=== PATIENT | female | born 1940 | race Two or more races ===

== ENCOUNTER 2016-12-25 19:14 | Inpatient (IN) | payer MEDICARE, MEDICAID ==
[~2016-12-25] VITALS: Ht 170.2 cm; Wt 59.0 kg
[2016-12-25 19:20] VITALS: BP 139/81
[2016-12-25] MEDS ORDERED: Cefepime 1gm vial ONE (20:42)
[2016-12-25] MEDS: Cefepime HCl 1 GM in NS 55 ML IV SCH (20:45)
[2016-12-25 20:54] LABS: BASOPHILS % (AUTO) 1.5 % (0.0-2.0); EOSINOPHILS % (AUTO) 0.6 % (0.0-3.0); LYMPHOCYTES % (AUTO) 17.6 % (20.0-45.0); MEAN CORPUSCULAR HGB CONC 33.5 G/DL (32.0-36.0); MEAN CORPUSCULAR VOLUME 98 FL (80-99); MEAN PLATELET VOLUME 7.3 FL (6.5-10.1); MONOCYTES % (AUTO) 3.7 % (1.0-10.0); NEUTROPHILS % (AUTO) 76.7 % (45.0-75.0); PLATELET COUNT 357 K/UL (150-450); RED BLOOD COUNT 4.03 M/UL (4.20-5.40); RED CELL DISTRIBUTION WIDTH 12.8 % (11.6-14.8); WHITE BLOOD COUNT 8.4 K/UL (4.8-10.8)
--- NOTE | 2016-12-25 21:04 | Emergency Room Report ---
History of Present Illness General Chief Complaint: General Complaint Source: Patient, Family Member, EMS, PMD (RISHI GAMBLE D.O.) Present Illness HPI This patient presents from a residential facility. Patient has a history of atrial fibrillation, generalized weakness, hypertension, GERD, and blindness of both eyes. The patient is also positive for failure to thrive and concerns of being more lethargic than usual. The patient has a history of a sacral decubitus ulcer and has chronic pain from this. There are no other complaints. (RISHI GAMBLE D.O.) Allergies: Coded Allergies: ADHESIVE TAPE (Unverified Allergy, Unknown, 12/25/16) PENICILLINS (Unverified Allergy, Unknown, 12/25/16) Uncoded Allergies: PENICILLIN (Allergy, Unknown, 12/25/16) Patient History Past Medical History: see triage record, old chart reviewed, HTN, AFib, GERD, dementia, other - Blindness Social History: Denies: alcohol use, drug use, smoking Reviewed Nursing Documentation: PMH: Agreed, PSxH: Agreed (RISHI GAMBLE D.O. ) Nursing Documentation-PMH Past Medical History: No History, Except For Hx Cardiac Problems: Yes - Afib Hx Hypertension: Yes - anemia Hx Gastrointestinal Problems: Yes - GERD with esophagitis, constipation (RISHI GAMBLE D.O.) Review of Systems All Other Systems: negative except mentioned in HPI (RISHI GAMBLE D.O.) Physical Exam Vital Signs Date Time Temp Pulse Resp B/P Pulse Ox O2 Delivery O2 Flow Rate FiO2 12/25/16 19:05 98.1 93 18 139/81 97 Room Air Sp02 EP Interpretation: reviewed, normal General Appearance: no apparent distress, alert, GCS 15, non-toxic Head: normocephalic, atraumatic Eyes: bilateral eye PERRL, bilateral eye normal inspection ENT: hearing grossly normal, normal pharynx, no angioedema, normal voice Neck: full range of motion, supple/symm/no masses Respiratory: chest non-tender, lungs clear, normal breath sounds, speaking full sentences Cardiovascular #1: no edema, irregularly irregular Gastrointestinal: normal bowel sounds, non tender, soft, non-distended, no guarding, no rebound Rectal: deferred Musculoskeletal: normal range of motion, non-tender Neurologic: alert, responsive, motor strength/tone normal, sensory intact, speech normal Psychiatric: judgement/insight normal, memory normal, mood/affect normal, no suicidal/homicidal ideation Skin: normal color, warm/dry, well hydrated, other - See RN skin exam Stage 3 sacral DU (RISHI GAMBLE D.O.) Medical Decision Making Diagnostic Impression: Primary Impression: Failure to thrive in adult Additional Impression: UTI (urinary tract infection) Qualified Codes: N30.01 - Acute cystitis with hematuria ER Course This patient presents for failure to thrive. She also has altered mental status. The patient refused to give a urine sample and is concerned she may have a urinary tract infection. The patient was given broad-spectrum antibiotics as a precaution for possible urinary tract infection. Patient will be admitted for further evaluation and treatment. Labs Test 12/25/16 20:20 12/25/16 21:30 White Blood Count 8.4 K/UL (4.8-10.8) Red Blood Count 4.03 M/UL (4.20-5.40) Hemoglobin 13.3 G/DL (12.0-16.0) Hematocrit 39.6 % (37.0-47.0) Mean Corpuscular Volume 98 FL (80-99) Mean Corpuscular Hemoglobin 33.0 PG (27.0-31.0) Mean Corpuscular Hemoglobin Concent 33.5 G/DL (32.0-36.0) Red Cell Distribution Width 12.8 % (11.6-14.8) Platelet Count 357 K/UL (150-450) Mean Platelet Volume 7.3 FL (6.5-10.1) Neutrophils (%) (Auto) 76.7 % (45.0-75.0) Lymphocytes (%) (Auto) 17.6 % (20.0-45.0) Monocytes (%) (Auto) 3.7 % (1.0-10.0) Eosinophils (%) (Auto) 0.6 % (0.0-3.0) Basophils (%) (Auto) 1.5 % (0.0-2.0) Sodium Level 140 mEQ/L (135-145) Potassium Level 4.0 mEQ/L (3.4-4.9) Chloride Level 101 mEQ/L (98-107) Carbon Dioxide Level 27 mEQ/L (20-30) Anion Gap 12 (5-15) Blood Urea Nitrogen 16 mg/dL (7-23) Creatinine 0.8 mg/dL (0.5-0.9) Estimat Glomerular Filtration Rate mL/min (>60) Glucose Level 144 mg/dL (74-106) Lactic Acid Level 1.80 mmol/L (0.66-2.22) Calcium Level 10.4 mg/dL (8.6-10.2) Total Bilirubin 0.3 mg/dL (0.0-1.2) Aspartate Amino Transf (AST/SGOT) 16 U/L (5-40) Alanine Aminotransferase (ALT/SGPT) 11 U/L (3-33) Alkaline Phosphatase 60 U/L (35-104) Total Creatine Kinase 31 U/L (26-140) Creatine Kinase MB 2.0 ng/mL (< 3.8) Creatine Kinase MB Relative Index 6.4 Troponin I < 0.30 ng/mL (<=0.30) Total Protein 7.7 g/dL (6.6-8.7) Albumin 4.2 g/dL (3.5-5.2) Globulin 3.5 g/dL Albumin/Globulin Ratio 1.2 (1.0-2.7) Urine Color Yellow Urine Appearance Cloudy Urine pH 5 (4.5-8.0) Urine Specific [place] 1.025 (1.005-1.035) Urine Protein 2+ (NEGATIVE) Urine Glucose (UA) Negative (NEGATIVE) Urine Ketones Negative (NEGATIVE) Urine Occult Blood 5+ (NEGATIVE) Urine Nitrite Negative (NEGATIVE) Urine Bilirubin Negative (NEGATIVE) Urine Urobilinogen 1 MG/DL (0.0-1.0) Urine Leukocyte Esterase 3+ (NEGATIVE) Urine RBC Tntc /HPF (0 - 2) Urine WBC 5-10 /HPF (0 - 2) Urine Squamous Epithelial Cells Moderate /LPF (NONE/OCC) Urine Bacteria Many /HPF (NONE) (RISHI GAMBLE D.O.) ER Course Endorsed to me by Dr Bob at 9pm to followup labs, UA UA grossly infected Abx given Reviewed last of labs, paperwork Endorsed findings to Dr Oliver at 1124pm (MARKEL CRANE M.D.) EKG Diagnostic Results Rate: normal Rhythm: other ST Segments: no acute changes Other Impression A.fib (RISHI GAMBLE D.O.) Rhythm Strip Diag. Results EP Interpretation: yes Rate: 90's Rhythm: no PVC's, no ectopy Other Impression Cary.fib (RISHI GAMBLE D.O.) Chest X-Ray Diagnostic Results Chest X-Ray Diagnostic Results : Chest X-Ray Ordered: Yes # of Views/Limited/Complete: 1 View Indication: Other - AMS EP Interpretation: Yes Interpretation: no consolidation, no effusion, no pneumothorax, no acute cardiopulmonary disease, other - Hyperinflated. Impression: No acute disease Interpreting ER Provider: Rupal (RISHI GAMBLE D.O.) Last Vital Signs Date Time Temp Pulse Resp B/P Pulse Ox O2 Delivery O2 Flow Rate FiO2 12/25/16 19:05 98.1 93 18 139/81 97 Room Air (RISHI GAMBLE D.O.) Status: improved (MARKEL CRANE M.D.) Disposition: ADMITTED INPATIENT Condition: Serious Referrals: YAZMIN OLIVER (PCP) RISHI GAMBLE D.O. Dec 25, 2016 21:04 MARKEL CRANE M.D. Dec 25, 2016 23:24
[2016-12-25 21:12] LABS: ALANINE AMINOTRANSFERASE 11 U/L (3-33); ALBUMIN/GLOBULIN RATIO 1.2 (1.0-2.7); ANION GAP 12 (5-15); ASPARTATE AMINO TRANSFERASE 16 U/L (5-40); CALCIUM 10.4 mg/dL (8.6-10.2); CARBON DIOXIDE 27 mEQ/L (20-30); CHLORIDE 101 mEQ/L (98-107); CREATININE 0.8 mg/dL (0.5-0.9); HEMOLYSIS 5; SODIUM 140 mEQ/L (135-145); TOTAL PROTEIN 7.7 g/dL (6.6-8.7); TROPONIN I < 0.30 ng/mL (<=0.30)
[2016-12-25 21:15] VITALS: BP 142/82
[2016-12-25 22:12] LABS: APPEARANCE,URINE CLOUDY; KETONES,URINE NEGATIVE (NEGATIVE); LEUKOCYTE ESTERASE ,URINE 3+ (NEGATIVE); NITRITE,URINE NEGATIVE (NEGATIVE); PH,URINE 5 (4.5-8.0); PROTEIN,URINE 2+ (NEGATIVE); UROBILINOGEN,URINE 1 MG/DL (0.0-1.0)
[2016-12-25] MEDS: Acetaminophen 500mg (ES) tab ORAL PRN (22:12)
[2016-12-25 22:33] LABS: RBC,URINE TNTC /HPF (0 - 2)
[2016-12-25 22:36] LABS: SQUAMOUS EPITHELIAL CELL,UR MODERATE /LPF (NONE/OCC)
[2016-12-25 22:37] LABS: BACTERIA,URINE MANY /HPF
[2016-12-25] MEDS ORDERED: AMLODIPINE BESYL5 MG ORAL (22:41)
[2016-12-25] MEDS ORDERED: PRO-STAT LIQUID30 ML ORAL (23:13)
[2016-12-25] MEDS ORDERED: METOPROLOL TART50 M1 ORAL (23:13)
[2016-12-25] MEDS ORDERED: MULTIVITAMINS1 EAC2 ORAL (23:13)
[2016-12-25] MEDS ORDERED: ISOSORBIDE MONO30 M1 PO (23:13)
[2016-12-25] MEDS ORDERED: DOCUSATE SODIU100 MG ORAL (23:13)
[2016-12-25] MEDS ORDERED: PANTOPRAZOLE SO40 MG ORAL (23:13)
[2016-12-25] MEDS ORDERED: ASPIRIN EC81 MG ORAL (23:13)
[2016-12-25] MEDS ORDERED: ASCORBIC ACID500 MG ORAL (23:13)
[2016-12-25] MEDS ORDERED: XARELTO10 MG ORAL (23:13)
[2016-12-25] MEDS ORDERED: NITROGLYCERIN0.4 MG SL (23:17)
[2016-12-25] MEDS ORDERED: MILK OF MA400 MG/51 ORAL (23:17)
[2016-12-25] MEDS ORDERED: MELATONIN1 M2 PO (23:17)
[2016-12-25] MEDS ORDERED: BISACODYL5 MG RECTAL (23:17)
[2016-12-25] MEDS ORDERED: TRAMADOL HCL150 MG ORAL (23:17)
[2016-12-25] MEDS ORDERED: ACETAMINOPHEN325 M1 ORAL (23:17)
[2016-12-25 23:30] VITALS: BP 141/79
[2016-12-26] MEDS: D5 1/2NS 1,000 ML IV SCH ×2 (00:11→21:08)
[2016-12-26 04:00] VITALS: BP 137/79
[2016-12-26] MEDS ORDERED: Cefepime 1gm vial ONE (06:32)
[2016-12-26] MEDS: Cefepime HCl 1 GM in NS 55 ML IV SCH (06:37)
[2016-12-26 08:00] VITALS: BP 133/80
[2016-12-26] MEDS: Acetaminophen 500mg (ES) tab ORAL PRN (08:30)
[2016-12-26] MEDS ORDERED: Milk of Magnesia 30ml Ud ORAL PRN (09:00)
[2016-12-26] MEDS ORDERED: Metoprolol Tartrate 50mg tab ORAL SCH (09:00)
[2016-12-26] MEDS ORDERED: Bisacodyl EC 5mg tab ORAL PRN (09:00)
[2016-12-26] MEDS ORDERED: Acetaminophen 500mg (ES) tab ORAL PRN (09:08)
[2016-12-26] MEDS: Xarelto 15mg tab ORAL SCH (09:33)
[2016-12-26] MEDS: LORazepam 0.5mg tab ORAL PRN (09:33)
[2016-12-26] MEDS: Aspirin EC 81mg tab ORAL SCH (09:33)
--- NOTE | 2016-12-26 09:36 | Diagnostic Imaging Report ---
Indication: Shortness of breath Technique: One view of the chest Comparison: none Findings: Lungs are somewhat hyperinflated. Lungs and pleural spaces are clear. Heart size is normal. Aorta is tortuous. There are degenerative changes of the thoracic spine Impression: Hyperinflation, suggesting mild COPD. No acute process
--- NOTE | 2016-12-26 09:46 | History and Physical Report ---
DATE OF ADMISSION: 12/25/2016 CHIEF COMPLAINT: Altered mental status, sepsis, urinary tract infection, and failure to thrive. HISTORY OF PRESENT ILLNESS: The patient is a pleasant 76-year-old female, who was transferred from intermediate facility with complaints of confusion, failure to thrive, and weight loss. According to the patient's son, the patient has been increasingly confused and weak. She has lost significant amount of weight in the last several weeks. Workup at the intermediate facility has been unremarkable. In light of the patient's continued deterioration, she was sent to the emergency room. On evaluation there, she was diagnosed with urinary tract infection. She remains diffusely weak. Family were present at the bedside. She is now admitted for further evaluation and care. PAST MEDICAL HISTORY: As above with history of atrial fibrillation, hypertension, hypertensive heart disease, prior history of blindness, and history of stroke. PAST SURGICAL HISTORY: None. CURRENT MEDICATIONS: Reconciled and reviewed. ALLERGIES: Include penicillin. FAMILY HISTORY: Noncontributory. SOCIAL HISTORY: There is no known history of tobacco, ethanol, or drugs. REVIEW OF SYSTEMS: Unobtainable as the patient is confused. PHYSICAL EXAMINATION: GENERAL: The patient is well developed and follow well-nourished, in no apparent distress. VITAL SIGNS: Temperature 98.2 degrees, pulse 99 degrees, respirations 18, and blood pressure 137/79. HEART: Regular rate and rhythm. LUNGS: Clear. ABDOMEN: Soft, nontender, and nondistended. EXTREMITIES: Without clubbing or cyanosis. LABORATORY DATA: White count of 8 and hemoglobin 13. Sodium 140, potassium 4, and calcium 10.4. UA showed 5 to 10 WBCs, too numerous to count RBCs, and 3+ leukocyte esterase positive. ASSESSMENT: This is a pleasant female with complaints of encephalopathy, likely toxic metabolic due to infection, hypercalcemia, hypertension, atrial fibrillation, blindness, and possible early sepsis. PLAN: IV antibiotic therapy. Follow up cultures. Gentle hydration. Continue outpatient cardiac regimen and encourage p.o. Rafal Oliver M.D. DR: TAM JOB#: [id number] CC:
[2016-12-26] MEDS ORDERED: Tubing IV Secondary IV ONE (09:48)
[2016-12-26] MEDS ORDERED: D5 1/2NS 1000ml IV ONE (09:48)
[2016-12-26 12:00] VITALS: BP_SYST 114; BP_SYST 123; BP_DIAS 50; BP_DIAS 64
[2016-12-26] MEDS: Docusate 100mg cap ORAL SCH ×2 (12:09→18:00)
[2016-12-26] MEDS: Imdur 30mg tab ORAL SCH (12:09)
[2016-12-26] MEDS: Ascorbic Acid 500mg tab ORAL SCH (12:09)
[2016-12-26] MEDS: traMADol 50mg tab ORAL PRN (15:42)
[2016-12-26 16:06] VITALS: BP 129/71
[2016-12-26 20:00] VITALS: BP 138/72
[2016-12-26] MEDS: Levofloxacin 250mg/D5W 50ml IVPB SCH (23:58)
[2016-12-27] VITALS: BP 147/93
[2016-12-27 04:00] VITALS: BP 154/85
[2016-12-27] MEDS: traMADol 50mg tab ORAL PRN (05:07)
[2016-12-27 08:00] VITALS: BP 157/89
[2016-12-27] MEDS: Aspirin EC 81mg tab ORAL SCH (09:13)
[2016-12-27] MEDS: Xarelto 15mg tab ORAL SCH (09:14)
[2016-12-27] MEDS: Docusate 100mg cap ORAL SCH ×2 (09:14→17:24)
[2016-12-27] MEDS: Ascorbic Acid 500mg tab ORAL SCH (09:14)
[2016-12-27] MEDS: Imdur 30mg tab ORAL SCH (09:15)
[2016-12-27 12:00] VITALS: BP 108/64
--- NOTE | 2016-12-27 12:42 | General Progress Note ---
Assessment/Plan Problem List: (1) Toxic metabolic encephalopathy ICD Codes: G92 - Toxic encephalopathy SNOMED: 123957433 (2) UTI (urinary tract infection) ICD Codes: N39.0 - Urinary tract infection, site not specified SNOMED: 21076933 Qualifiers: Qualified Codes: N30.01 - Acute cystitis with hematuria (3) Failure to thrive in adult ICD Codes: R62.7 - Adult failure to thrive SNOMED: 863420904 Status: stable, progressing Assessment/Plan ivf iv abx follow cultures encourage pos monitor labs d/w family Subjective ROS Limited/Unobtainable: No Constitutional: Reports: malaise, weakness HEENT: Reports: no symptoms Cardiovascular: Reports: no symptoms Respiratory: Reports: cough Gastrointestinal/Abdominal: Reports: poor appetite, poor fluid intake Genitourinary: Reports: no symptoms Neurologic/Psychiatric: Reports: pre-existing deficit Endocrine: Reports: no symptoms Hematologic/Lymphatic: Reports: no symptoms Allergies: Coded Allergies: ADHESIVE TAPE (Unverified Allergy, Unknown, 12/25/16) PENICILLINS (Unverified Allergy, Unknown, 12/25/16) Uncoded Allergies: PENICILLIN (Allergy, Unknown, 12/25/16) All Systems: reviewed and negative except above Subjective no new complaints. no chest pain no sob. Ucx with GPC. no fevers Objective Last 24 Hour Vital Signs Date Time Temp Pulse Resp B/P Pulse Ox O2 Delivery O2 Flow Rate FiO2 12/27/16 09:15 157/89 12/27/16 09:15 65 157/89 12/27/16 09:14 65 157/89 12/27/16 08:00 97.2 65 20 157/89 100 Room Air 12/27/16 06:06 97.3 12/27/16 04:00 97.3 64 18 154/85 100 Room Air 12/27/16 00:00 97.3 76 20 147/93 99 Room Air 12/26/16 20:00 97.7 67 20 138/72 99 12/26/16 16:41 98.8 12/26/16 16:06 98.8 102 20 129/71 98 Room Air Intake and Output 12/26/16 12/27/16 19:00 07:00 Intake Total 1360 ml 670 ml Balance 1360 ml 670 ml Intake Oral 600 ml 120 ml IV Total 760 ml 550 ml # Voids 4 3 # Bowel Movements 1 Height (Feet): 5 Height (Inches): 7.00 Weight (Pounds): 130 General Appearance: WD/WN, alert, cachetic, thin Neck: supple Cardiovascular: normal rate, regular rhythm Respiratory/Chest: chest wall non-tender, lungs clear, normal breath sounds, no respiratory distress Abdomen: normal bowel sounds, non tender, soft, no organomegaly Edema: no edema noted Arm (L), no edema noted Arm (R), no edema noted Leg (L), no edema noted Leg (R), no edema noted Pedal (L), no edema noted Pedal (R), no edema noted Generalized Neurologic: alert, oriented x 3, responsive YAZMIN DE LOS SANTOS Dec 27, 2016 12:42
[2016-12-27 16:00] VITALS: BP 101/63
[2016-12-27] MEDS: D5 1/2NS 1,000 ML IV SCH (17:24)
[2016-12-27 20:00] VITALS: BP 101/61
[2016-12-28] VITALS (7 sets, daily range): BP systolic 97–135; BP diastolic 61–80
[2016-12-28] MEDS: Levofloxacin 250mg/D5W 50ml IVPB SCH (00:18)
[2016-12-28] MEDS: traMADol 50mg tab ORAL PRN ×3 (06:46→18:14)
[2016-12-28] MEDS: Aspirin EC 81mg tab ORAL SCH (08:34)
[2016-12-28] MEDS: Docusate 100mg cap ORAL SCH ×2 (08:34→17:07)
[2016-12-28] MEDS: Ascorbic Acid 500mg tab ORAL SCH (08:35)
[2016-12-28] MEDS: Xarelto 15mg tab ORAL SCH (08:35)
[2016-12-28] MEDS: Imdur 30mg tab ORAL SCH (08:35)
--- NOTE | 2016-12-28 11:24 | General Progress Note ---
Assessment/Plan Problem List: (1) Toxic metabolic encephalopathy ICD Codes: G92 - Toxic encephalopathy SNOMED: 090692300 (2) UTI (urinary tract infection) ICD Codes: N39.0 - Urinary tract infection, site not specified SNOMED: 62358011 Qualifiers: Qualified Codes: N30.01 - Acute cystitis with hematuria (3) Failure to thrive in adult ICD Codes: R62.7 - Adult failure to thrive SNOMED: 202573349 Status: stable Assessment/Plan ivf check ekg and trop iv abx follow cultures encourage pos monitor labs d/w family refer to [facility] per family request Subjective ROS Limited/Unobtainable: No Constitutional: Reports: malaise, weakness HEENT: Reports: no symptoms Cardiovascular: Reports: chest pain Respiratory: Reports: no symptoms Gastrointestinal/Abdominal: Reports: no symptoms Genitourinary: Reports: no symptoms Neurologic/Psychiatric: Reports: pre-existing deficit Endocrine: Reports: no symptoms Hematologic/Lymphatic: Reports: no symptoms Allergies: Coded Allergies: ADHESIVE TAPE (Unverified Allergy, Unknown, 12/25/16) PENICILLINS (Unverified Allergy, Unknown, 12/25/16) Uncoded Allergies: PENICILLIN (Allergy, Unknown, 12/25/16) All Systems: reviewed and negative except above Subjective c/o chest pain. sharp. no sob. no n/v does not radiate. Objective Last 24 Hour Vital Signs Date Time Temp Pulse Resp B/P Pulse Ox O2 Delivery O2 Flow Rate FiO2 12/28/16 08:35 100/71 12/28/16 08:15 98.1 89 11 100/71 97 Room Air 12/28/16 07:45 98.1 12/28/16 04:00 98.1 77 20 135/80 100 Room Air 12/28/16 00:15 66 125/68 12/28/16 00:00 97.2 64 18 97/61 99 Room Air 12/27/16 20:00 98.1 61 18 101/61 98 Room Air 12/27/16 16:00 98.2 64 20 101/63 98 Room Air 12/27/16 12:00 97.7 72 20 108/64 99 Room Air Intake and Output 12/27/16 12/28/16 19:00 07:00 Intake Total 880 ml 839 ml Balance 880 ml 839 ml Intake Oral 680 ml 300 ml IV Total 200 ml 539 ml # Voids 4 4 # Bowel Movements 1 1 Height (Feet): 5 Height (Inches): 7.00 Weight (Pounds): 130 General Appearance: WD/WN, alert Neck: supple Cardiovascular: regular rhythm Respiratory/Chest: chest wall non-tender, lungs clear, normal breath sounds Abdomen: normal bowel sounds, non tender, soft, no organomegaly Edema: no edema noted Arm (L), no edema noted Arm (R), no edema noted Leg (L), no edema noted Leg (R), no edema noted Pedal (L), no edema noted Pedal (R), no edema noted Generalized YAZMIN DE LOS SANTOS Dec 28, 2016 11:23
--- NOTE | 2016-12-28 11:35 | Wound Care Consultation ---
Wound Assessment Wound Assessment : Wound Number: #1 Wound Present on Admission: Yes New Wound: No Status Change of Wound: No Wound Location Body Site Modif: mid Wound Location Body Site: sacral - extending to left aspect of sacral Wound Type: pressure ulcer Shekhar Test: Does not Shekhar Pressure Ulcer Stage: III - scattered stage III. Wound Thickness: Full Thickness Wound Length: 5.0 - scattered Wound Width: 4.0 - scattered Wound Depth: 0.3 Percent of Wound [employer]/Red: 90 Percent of Wound Bed Yellow/Wh: 10 Other Colors Identified: full thickness scar tissue surrounding sacral 7.0cmx10.0cm scattered Wound Drainage Description: Serosanguineous Wound Drainage Amount: Moderate Wound Drainage Odor: None/Absent Tissue Surrounding Wound: Macerated - erythremic Wound General Appearance: Reddened, Draining Wound Comment #1 Mid sacral extending to left aspect of sacral scattered pressure ulcer stage III. Recommendation. -Local wound care as ordered. -Turn and reposition. -Keep clean and dry. -Optimize nutrition. -Offload heels. -Apply heel protectors. -Apply low air loss SPR overlay. -Assess and follow up with MD for any changes of condition to skin. CAROL HA Dec 28, 2016 11:35
[2016-12-28] MEDS: D5 1/2NS 1,000 ML IV SCH ×2 (12:39→17:08)
--- NOTE | 2016-12-28 18:18 | Cardiology Report ---
APPROVED REPORT EKG Measurement Heart [id number] Atrial fibrillation Incomplete right bundle branch block Possible Anterior infarct, age undetermined Abnormal ECG
[2016-12-29] VITALS: BP 132/74
[2016-12-29] MEDS: traMADol 50mg tab ORAL PRN ×3 (00:27→17:43)
[2016-12-29] MEDS: Levofloxacin 250mg/D5W 50ml IVPB SCH (01:36)
[2016-12-29 03:53] VITALS: BP 146/86
--- NOTE | 2016-12-29 08:13 | General Progress Note ---
Assessment/Plan Problem List: (1) Toxic metabolic encephalopathy ICD Codes: G92 - Toxic encephalopathy SNOMED: 229222298 (2) UTI (urinary tract infection) ICD Codes: N39.0 - Urinary tract infection, site not specified SNOMED: 66434611 Qualifiers: Qualified Codes: N30.01 - Acute cystitis with hematuria (3) Failure to thrive in adult ICD Codes: R62.7 - Adult failure to thrive SNOMED: 002169120 Status: stable Assessment/Plan ivf ct brain vascular studies iv abx follow cultures encourage pos monitor labs d/w family refer to [facility] per family request dc planning if above negative Subjective ROS Limited/Unobtainable: No Constitutional: Reports: malaise, weakness HEENT: Reports: no symptoms Cardiovascular: Reports: no symptoms Respiratory: Reports: no symptoms Gastrointestinal/Abdominal: Reports: no symptoms Genitourinary: Reports: no symptoms Neurologic/Psychiatric: Reports: pre-existing deficit Endocrine: Reports: no symptoms Hematologic/Lymphatic: Reports: no symptoms Allergies: Coded Allergies: ADHESIVE TAPE (Unverified Allergy, Unknown, 12/25/16) PENICILLINS (Unverified Allergy, Unknown, 12/25/16) Uncoded Allergies: PENICILLIN (Allergy, Unknown, 12/25/16) All Systems: reviewed and negative except above Subjective no chest pain. no sob. D/w son requesting vascular and neuro eval. no chest pain last night. no fever or chills. no headaches. Objective Last 24 Hour Vital Signs Date Time Temp Pulse Resp B/P Pulse Ox O2 Delivery O2 Flow Rate FiO2 12/29/16 03:53 96.8 65 18 146/86 99 Room Air 12/29/16 01:26 97.2 12/29/16 00:00 97.2 74 18 132/74 96 Room Air 12/28/16 20:00 98.4 87 18 132/74 96 Room Air 12/28/16 16:00 97.7 68 18 114/64 97 Room Air 12/28/16 12:09 97.7 91 16 128/70 98 Room Air 12/28/16 08:35 100/71 12/28/16 08:15 98.1 89 11 100/71 97 Room Air Intake and Output 12/28/16 12/29/16 19:00 07:00 Intake Total 500 ml 600 ml Balance 500 ml 600 ml IV Total 500 ml 600 ml # Voids 3 2 # Bowel Movements 1 Height (Feet): 5 Height (Inches): 7.00 Weight (Pounds): 130 Objective General Appearance: WD/WN, alert Neck: supple Cardiovascular: regular rhythm Respiratory/Chest: chest wall non-tender, lungs clear, normal breath sounds Abdomen: normal bowel sounds, non tender, soft, no organomegaly Edema: no edema noted Arm (L), no edema noted Arm (R), no edema noted Leg (L), no edema noted Leg (R), no edema noted Pedal (L), no edema noted Pedal (R), no edema noted Generalized YAZMIN DE LOS SANTOS Dec 29, 2016 08:13
[2016-12-29 08:44] VITALS: BP 149/96
[2016-12-29] MEDS: Aspirin EC 81mg tab ORAL SCH (08:47)
[2016-12-29] MEDS: Xarelto 15mg tab ORAL SCH (08:47)
[2016-12-29] MEDS: Docusate 100mg cap ORAL SCH ×2 (08:47→17:44)
[2016-12-29] MEDS: Imdur 30mg tab ORAL SCH (08:48)
[2016-12-29] MEDS: Ascorbic Acid 500mg tab ORAL SCH (08:48)
--- NOTE | 2016-12-29 10:43 | Diagnostic Imaging Report ---
Indications: Altered level of consciousness Technique: Continuous helical CT imaging of the brain was performed with automatic exposure control on a Siemens sensation [address] scanner. Axial and coronal images were reconstructed at 5 mm slice thickness and interval. CTDI volume(s): 70 mGy Total DLP: 1425 mGy-cm Findings: Comparison: CT head 08/28/13; MRA head 10/04/13 Chronic microvascular ischemic changes throughout the bilateral cerebral periventricular and deep white matter with focal extension into the left parietal subcortical white matter, 11 mm rim calcified mass in the region of the left cavernous sinus, diffuse atrophy unchanged.. No evidence of mass or hemorrhage, other attenuation abnormality, mass effect, midline shift, hydrocephalus or increased intracranial pressure. Bone window images are unremarkable. Visualized paranasal sinuses and mastoid air cells are clear. 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 Stable chronic age-related changes as described The CT scanner at [facility] is accredited by the [employer] [employer] and the scans are performed using protocols designed to limit radiation exposure to as low as reasonably achievable to attain images of sufficient resolution adequate for diagnostic evaluation.
[2016-12-29 12:00] VITALS: BP 121/71
[2016-12-29 15:58] VITALS: BP 112/62
[2016-12-29] MEDS: D5 1/2NS 1,000 ML IV SCH (18:00)
[2016-12-29 19:59] VITALS: BP 123/68
[2016-12-29] MEDS: Nitroglycerin Subl 0.4mg tab (Bottle Of 25) SL PRN (21:05)
[2016-12-30] VITALS: BP 143/83
[2016-12-30] MEDS: Levofloxacin 250mg/D5W 50ml IVPB SCH (00:51)
[2016-12-30 04:00] VITALS: BP 158/85
[2016-12-30 07:08] VITALS: BP 143/67
[2016-12-30] MEDS: Docusate 100mg cap ORAL SCH ×2 (08:29→18:25)
[2016-12-30] MEDS: Aspirin EC 81mg tab ORAL SCH (08:29)
[2016-12-30] MEDS: Xarelto 15mg tab ORAL SCH (08:29)
[2016-12-30] MEDS: Ascorbic Acid 500mg tab ORAL SCH (08:30)
[2016-12-30] MEDS: Imdur 30mg tab ORAL SCH (08:30)
[2016-12-30] MEDS ORDERED: D5 1/2NS 1000ml IV ONE ×2 (10:02→11:16)
[2016-12-30 12:07] VITALS: BP 111/64
--- NOTE | 2016-12-30 13:54 | General Progress Note ---
Assessment/Plan Problem List: (1) Toxic metabolic encephalopathy ICD Codes: G92 - Toxic encephalopathy SNOMED: 648918083 (2) UTI (urinary tract infection) ICD Codes: N39.0 - Urinary tract infection, site not specified SNOMED: 13970549 Qualifiers: Qualified Codes: N30.01 - Acute cystitis with hematuria (3) Failure to thrive in adult ICD Codes: R62.7 - Adult failure to thrive SNOMED: 939215763 Status: stable, progressing Assessment/Plan ivf MRA brain- reassess carotid aneurysm iv abx follow cultures encourage pos monitor labs d/w family refer to [facility] per family request dc planning if above negative Subjective ROS Limited/Unobtainable: No Constitutional: Reports: malaise, weakness HEENT: Reports: no symptoms Cardiovascular: Reports: no symptoms Respiratory: Reports: no symptoms Gastrointestinal/Abdominal: Reports: no symptoms Genitourinary: Reports: no symptoms Neurologic/Psychiatric: Reports: pre-existing deficit Endocrine: Reports: no symptoms Hematologic/Lymphatic: Reports: no symptoms Allergies: Coded Allergies: ADHESIVE TAPE (Unverified Allergy, Unknown, 12/25/16) PENICILLINS (Unverified Allergy, Unknown, 12/25/16) Uncoded Allergies: PENICILLIN (Allergy, Unknown, 12/25/16) All Systems: reviewed and negative except above Subjective no events. w/o complaints. no chest pain no sob. No headaches. CT noted- + carotid aneurysm Objective Last 24 Hour Vital Signs Date Time Temp Pulse Resp B/P Pulse Ox O2 Delivery O2 Flow Rate FiO2 12/30/16 12:07 98.2 71 18 111/64 98 Room Air 12/30/16 08:30 143/67 12/30/16 08:30 76 143/67 12/30/16 08:29 76 143/67 12/30/16 07:08 98.2 76 18 143/67 100 Room Air 12/30/16 04:00 97.3 79 18 158/85 99 Room Air 12/30/16 00:00 97.7 94 20 143/83 98 Room Air 12/29/16 21:05 123/68 12/29/16 19:59 97.0 69 18 123/68 96 Room Air 12/29/16 18:42 97.7 12/29/16 15:58 97.7 64 18 112/62 96 Room Air Intake and Output 12/29/16 12/30/16 19:00 07:00 Intake Total 760 ml 670 ml Balance 760 ml 670 ml Intake Oral 360 ml 120 ml IV Total 400 ml 550 ml # Voids 4 2 Height (Feet): 5 Height (Inches): 7.00 Weight (Pounds): 130 Objective General Appearance: WD/WN, alert Neck: supple Cardiovascular: regular rhythm Respiratory/Chest: chest wall non-tender, lungs clear, normal breath sounds Abdomen: normal bowel sounds, non tender, soft, no organomegaly Edema: no edema noted Arm (L), no edema noted Arm (R), no edema noted Leg (L), no edema noted Leg (R), no edema noted Pedal (L), no edema noted Pedal (R), no edema noted Generalized YAZMIN DE LOS SANTOS Dec 30, 2016 13:54
--- NOTE | 2016-12-30 16:27 | Cardiology Report ---
APPROVED REPORT EKG Measurement Heart [id number] Atrial fibrillation Cannot rule out Anterior infarct, age undetermined Abnormal ECG
[2016-12-30 16:30] VITALS: BP 139/74
[2016-12-30] MEDS: traMADol 50mg tab ORAL PRN ×2 (16:32→22:54)
[2016-12-30] MEDS: D5 1/2NS 1,000 ML IV SCH (16:37)
--- NOTE | 2016-12-30 16:50 | Diagnostic Imaging Report ---
Indications: Headache, history of brain aneurysm Technique: 3D [id number]-up-pbxroc images obtained through the [place] [facility] [place]. MIP reconstructions were generated in multiple rotational projections Comparison: 10/04/2013 Findings: Again demonstrated is a complex shaped aneurysm of the distal internal carotid artery. There is funnel-shaped ectasia of the distal intrapetrous carotid artery. There is a saccular component of the aneurysm which expands the distal carotid canal and then extends into the cavernous sinus. At its widest point, the saccular component measures 16 mm in diameter, appearing unchanged from the previous dimension. Fusiform dilatation of the carotid artery extends distal to this well into the cavernous sinus. This distal 2 simple component measures 7-8 mm in diameter, appears unchanged from the previous exam. The length from the base of the saccular component to the tip of the aneurysm is 32 mm, which is not significantly changed from the previous exam. The cavernous carotid artery then continues off of the anterior aspect of the distal end of the aneurysm. Note that because of the aneurysm, the position of the proximal carotid siphon is more cephalad than the normal contralateral side. Due to the flow and geometric abnormalities created by the aneurysm, portions of the cavernous carotid artery are not well visualized. The distal internal carotid artery is patent, nonstenotic. The bilateral A1 segments are patent, that on the left diffusely smaller than that on the right. The anterior communicating artery appears to be patent. The bilateral M1 segments and proximal middle through artery branches are patent. The right distal internal carotid artery is patent, nonstenotic, demonstrates no evidence of aneurysm. The left vertebral artery is dominant, and the right vertebral artery is very small. Patient nonstenotic basilar artery, proximal PICAs, proximal superior cerebellar arteries, P1 segments and proximal posterior cerebral arteries. Neither posterior communicating artery is demonstrated No other evidence of intracranial aneurysm. No definite evidence of vascular malformation. 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 This appears unchanged from prior exam of 10/04/2013. No other intracranial aneurysm demonstrated No definite evidence of significant cerebrovascular insufficiency. Note, however, poor visualization of the portions of the cavernous carotid artery. No other intracranial aneurysm demonstrated
[2016-12-30] MEDS: Nitroglycerin Subl 0.4mg tab (Bottle Of 25) SL PRN (17:14)
--- NOTE | 2016-12-30 19:23 | Diagnostic Imaging Report ---
APPROVED REPORT CPT Code: 81170 Vascular Symptoms Unsteady Gait Comments: Weakness. Hx A-fib. Doppler Spectral Velocity Analysis RightLeft CAROTID (BILATERAL) - Imaging reveals no significant plaque within the right and left extracranial carotid arteries. The Doppler spectral flow analysis is within normal limits throughout the extracranial carotid arteries bilaterally. VERTEBRAL- The vertebral arteries are within normal limits.
--- NOTE | 2016-12-30 19:23 | Diagnostic Imaging Report ---
APPROVED REPORT CPT Code: 94516 Symptoms Rest Pain : Comments: Weakness, hx a-fib. Risk Factors Hypertension: Cardiac Disease RIGHT LEG: Common femoral artery waveform analysis is within normal limits at rest. The proximal common femoral artery is mildly calcified. Color duplex sonography reveals patency of the common femoral, superficial femoral, popliteal and tibial arteries. There is no evidence of stenosis or occlusion within these segments. Doppler tibial artery waveform analysis is within normal limits. LEFT LEG: Common femoral artery waveform analysis is within normal limits at rest. Color duplex sonography reveals patency of the superficial femoral, popliteal and tibial arteries. There is no evidence of stenosis or occlusion within these segments. Doppler tibial artery waveform analysis is within normal limits.
[2016-12-30 20:00] VITALS: BP 156/107
[2016-12-31] VITALS (7 sets, daily range): BP systolic 92–132; BP diastolic 43–86
[2016-12-31] MEDS: Levofloxacin 250mg/D5W 50ml IVPB SCH (01:45)
[2016-12-31] MEDS: Docusate 100mg cap ORAL SCH ×2 (09:52→18:12)
[2016-12-31] MEDS: Ascorbic Acid 500mg tab ORAL SCH (09:52)
[2016-12-31] MEDS: LORazepam 0.5mg tab ORAL PRN (09:53)
[2016-12-31] MEDS: Imdur 30mg tab ORAL SCH (09:58)
[2016-12-31] MEDS: Xarelto 15mg tab ORAL SCH (09:58)
[2016-12-31] MEDS: Aspirin EC 81mg tab ORAL SCH (10:13)
[2016-12-31] MEDS: D5 1/2NS 1,000 ML IV SCH ×2 (10:13→13:31)
--- NOTE | 2016-12-31 10:19 | General Progress Note ---
Assessment/Plan Problem List: (1) Toxic metabolic encephalopathy ICD Codes: G92 - Toxic encephalopathy SNOMED: 100706396 (2) UTI (urinary tract infection) ICD Codes: N39.0 - Urinary tract infection, site not specified SNOMED: 41681449 Qualifiers: Qualified Codes: N30.01 - Acute cystitis with hematuria (3) Failure to thrive in adult ICD Codes: R62.7 - Adult failure to thrive SNOMED: 142909438 (4) ACS (acute coronary syndrome) ICD Codes: I24.9 - Acute ischemic heart disease, unspecified SNOMED: 516693072 (5) Atrial fibrillation with RVR ICD Codes: I48.91 - Unspecified atrial fibrillation SNOMED: 891129244956295 Status: stable Assessment/Plan transfer to tele check [facility] eval will try to get neurosurg input on carotid aneurysm Subjective ROS Limited/Unobtainable: No Constitutional: Reports: malaise, weakness HEENT: Reports: no symptoms Cardiovascular: Reports: chest pain Respiratory: Reports: no symptoms Gastrointestinal/Abdominal: Reports: no symptoms Genitourinary: Reports: no symptoms Neurologic/Psychiatric: Reports: pre-existing deficit Endocrine: Reports: no symptoms Hematologic/Lymphatic: Reports: no symptoms Allergies: Coded Allergies: ADHESIVE TAPE (Unverified Allergy, Unknown, 12/25/16) PENICILLINS (Unverified Allergy, Unknown, 12/25/16) Uncoded Allergies: PENICILLIN (Allergy, Unknown, 12/25/16) All Systems: reviewed and negative except above Subjective c/o chest pain intermittent chest pain last night refused troponin ekg with afib with rvr. Objective Last 24 Hour Vital Signs Date Time Temp Pulse Resp B/P Pulse Ox O2 Delivery O2 Flow Rate FiO2 12/31/16 09:58 132/86 12/31/16 09:53 66 132/86 12/31/16 09:53 66 132/86 12/31/16 08:00 97.5 66 18 132/86 100 Room Air 12/31/16 04:00 97.5 65 20 122/69 98 Room Air 12/31/16 00:00 98.1 71 20 112/64 97 Room Air 12/30/16 23:53 97.8 12/30/16 20:00 97.8 82 20 156/107 97 Room Air 12/30/16 17:14 139/74 12/30/16 16:30 98.1 68 18 139/74 96 Room Air 12/30/16 12:07 98.2 71 18 111/64 98 Room Air Intake and Output 12/30/16 12/31/16 19:00 07:00 Intake Total 290 ml 672 ml Balance 290 ml 672 ml Intake Oral 240 ml 22 ml IV Total 50 ml 650 ml # Voids 2 2 # Bowel Movements 1 Height (Feet): 5 Height (Inches): 7.00 Weight (Pounds): 130 General Appearance: WD/WN, alert Neck: supple Cardiovascular: normal peripheral pulses, normal rate, regular rhythm Respiratory/Chest: chest wall non-tender, lungs clear, normal breath sounds Abdomen: normal bowel sounds, non tender, soft, no organomegaly Edema: no edema noted Arm (L), no edema noted Arm (R), no edema noted Leg (L), no edema noted Leg (R), no edema noted Pedal (L), no edema noted Pedal (R), no edema noted Generalized Neurologic: alert, responsive Objective General Appearance: WD/WN, alert Neck: supple Cardiovascular: regular rhythm Respiratory/Chest: chest wall non-tender, lungs clear, normal breath sounds Abdomen: normal bowel sounds, non tender, soft, no organomegaly Edema: no edema noted Arm (L), no edema noted Arm (R), no edema noted Leg (L), no edema noted Leg (R), no edema noted Pedal (L), no edema noted Pedal (R), no edema noted Generalized YAZMIN DE LOS SANTOS Dec 31, 2016 10:19
[2016-12-31] MEDS ORDERED: Nitroglycerin Subl 0.4mg tab (Bottle Of 25) SL PRN (12:15)
[2016-12-31] MEDS ORDERED: Bisacodyl EC 5mg tab ORAL PRN (13:00)
[2016-12-31] MEDS ORDERED: LORazepam 0.5mg tab ORAL PRN (13:00)
[2016-12-31] MEDS ORDERED: Acetaminophen 500mg (ES) tab ORAL PRN (13:15)
[2017-01-01] VITALS: BP 100/55
[2017-01-01] MEDS: traMADol 50mg tab ORAL PRN ×2 (00:45→21:29)
[2017-01-01 03:17] VITALS: BP 111/69
[2017-01-01] MEDS: D5 1/2NS 1,000 ML IV SCH (06:29)
[2017-01-01 07:44] VITALS: BP 116/75
[2017-01-01] MEDS ORDERED: Xarelto 15mg tab ORAL SCH (09:00)
[2017-01-01] MEDS ORDERED: Imdur 30mg tab ORAL SCH (09:00)
[2017-01-01] MEDS ORDERED: Ascorbic Acid 500mg tab ORAL SCH (09:00)
[2017-01-01] MEDS ORDERED: Milk of Magnesia 30ml Ud ORAL PRN (09:00)
[2017-01-01] MEDS ORDERED: Aspirin EC 81mg tab ORAL SCH (09:00)
[2017-01-01] MEDS: Docusate 100mg cap ORAL SCH ×2 (09:18→18:52)
[2017-01-01 11:35] VITALS: BP 100/54
--- NOTE | 2017-01-01 12:31 | Diagnostic Imaging Report ---
APPROVED REPORT CPT Code: 04947 Present Symptoms Lower Extremity Pain: Left Comments: Chest pain. BILATERAL: Imaging reveals a patent deep venous system bilaterally. There is no evidence of thrombus within the femoral, popliteal or tibial segments. The greater saphenous veins are also within normal limits. Doppler indicates normal spontaneous flow within these segments. The proximal and mid posterior tibial vein segments were not well visualized bilaterally due to the patient's body habitus.
[2017-01-01 15:31] VITALS: BP 126/74
[2017-01-01 20:00] VITALS: BP 106/80
[2017-01-02] VITALS: BP 102/63
[2017-01-02] MEDS: D5 1/2NS 1,000 ML IV SCH ×3 (02:31→23:06)
[2017-01-02 04:00] VITALS: BP 106/70
[2017-01-02] MEDS ORDERED: Nitroglycerin Subl 0.4mg tab (Bottle Of 25) SL PRN (06:45)
[2017-01-02 08:00] VITALS: BP 137/79
[2017-01-02] MEDS ORDERED: Milk of Magnesia 30ml Ud ORAL PRN (09:00)
[2017-01-02] MEDS: Imdur 30mg tab ORAL SCH (09:02)
[2017-01-02] MEDS: Docusate 100mg cap ORAL SCH ×2 (09:03→18:03)
[2017-01-02] MEDS: Ascorbic Acid 500mg tab ORAL SCH (09:03)
[2017-01-02] MEDS: Aspirin EC 81mg tab ORAL SCH (09:04)
[2017-01-02] MEDS: Xarelto 15mg tab ORAL SCH (09:04)
--- NOTE | 2017-01-02 09:07 | General Progress Note ---
Assessment/Plan Problem List: (1) Toxic metabolic encephalopathy ICD Codes: G92 - Toxic encephalopathy SNOMED: 942783604 (2) UTI (urinary tract infection) ICD Codes: N39.0 - Urinary tract infection, site not specified SNOMED: 42804901 Qualifiers: Qualified Codes: N30.01 - Acute cystitis with hematuria (3) Failure to thrive in adult ICD Codes: R62.7 - Adult failure to thrive SNOMED: 408216563 (4) ACS (acute coronary syndrome) ICD Codes: I24.9 - Acute ischemic heart disease, unspecified SNOMED: 135087545 (5) Atrial fibrillation with RVR ICD Codes: I48.91 - Unspecified atrial fibrillation SNOMED: 429414672986058 Status: stable Assessment/Plan stable outpt Neuro surg eval xarelto cardiac rx Subjective ROS Limited/Unobtainable: No Constitutional: Reports: malaise, weakness HEENT: Reports: no symptoms Cardiovascular: Reports: no symptoms Respiratory: Reports: no symptoms Gastrointestinal/Abdominal: Reports: no symptoms Genitourinary: Reports: no symptoms Neurologic/Psychiatric: Reports: pre-existing deficit Endocrine: Reports: no symptoms Hematologic/Lymphatic: Reports: no symptoms Allergies: Coded Allergies: ADHESIVE TAPE (Unverified Allergy, Unknown, 12/25/16) PENICILLINS (Unverified Allergy, Unknown, 12/25/16) Uncoded Allergies: PENICILLIN (Allergy, Unknown, 12/25/16) All Systems: reviewed and negative except above Subjective no chest pain no sob. no new complaints. dc order placed yesterday family appealed dc because they do not want the pt to return to [facility]. Objective Last 24 Hour Vital Signs Date Time Temp Pulse Resp B/P Pulse Ox O2 Delivery O2 Flow Rate FiO2 01/02/17 09:04 74 137/79 01/02/17 09:04 74 137/79 01/02/17 09:02 137/79 01/02/17 08:00 97.9 74 20 137/79 98 Room Air 01/02/17 04:00 97.0 70 18 106/70 96 Room Air 01/02/17 03:48 67 01/02/17 00:00 97.2 68 18 102/63 98 Room Air 01/02/17 00:00 62 01/01/17 22:28 97.0 01/01/17 20:00 97.0 61 18 106/80 97 Room Air 01/01/17 19:57 64 01/01/17 16:30 126/74 01/01/17 15:31 97.3 76 18 126/74 99 Room Air 01/01/17 12:00 61 01/01/17 11:35 97.1 76 18 100/54 98 Room Air 01/01/17 09:23 80 116/75 01/01/17 09:20 80 116/75 01/01/17 09:19 116/75 Intake and Output 01/01/17 01/02/17 19:00 07:00 Intake Total 950 ml 700 ml Balance 950 ml 700 ml Intake Oral 350 ml 100 ml IV Total 600 ml 600 ml # Voids 3 3 Height (Feet): 5 Height (Inches): 7.00 Weight (Pounds): 130 Objective General Appearance: WD/WN, alert Neck: supple Cardiovascular: regular rhythm Respiratory/Chest: chest wall non-tender, lungs clear, normal breath sounds Abdomen: normal bowel sounds, non tender, soft, no organomegaly Edema: no edema noted Arm (L), no edema noted Arm (R), no edema noted Leg (L), no edema noted Leg (R), no edema noted Pedal (L), no edema noted Pedal (R), no edema noted Generalized YAZMIN DE LOS SANTOS Jan 02, 2017 09:07
[2017-01-02] MEDS ORDERED: Acetaminophen 500mg (ES) tab ORAL PRN (09:15)
[2017-01-02 12:00] VITALS: BP 107/58
[2017-01-02] MEDS: traMADol 50mg tab ORAL PRN ×2 (12:03→18:04)
[2017-01-02] MEDS ORDERED: LORazepam 0.5mg tab ORAL PRN (13:00)
[2017-01-02] MEDS ORDERED: Bisacodyl EC 5mg tab ORAL PRN (13:00)
[2017-01-02 16:00] VITALS: BP 114/69
[2017-01-02 20:00] VITALS: BP 96/54
[2017-01-03] VITALS (7 sets, daily range): BP systolic 97–124; BP diastolic 43–75
[2017-01-03] MEDS: Ascorbic Acid 500mg tab ORAL SCH (08:34)
[2017-01-03] MEDS: Docusate 100mg cap ORAL SCH ×2 (08:38→17:47)
[2017-01-03] MEDS: Xarelto 15mg tab ORAL SCH (08:39)
[2017-01-03] MEDS: Aspirin EC 81mg tab ORAL SCH (08:40)
[2017-01-03] MEDS: Imdur 30mg tab ORAL SCH (08:44)
--- NOTE | 2017-01-03 09:04 | General Progress Note ---
Assessment/Plan Problem List: (1) Toxic metabolic encephalopathy ICD Codes: G92 - Toxic encephalopathy SNOMED: 477237506 (2) UTI (urinary tract infection) ICD Codes: N39.0 - Urinary tract infection, site not specified SNOMED: 49857740 Qualifiers: Qualified Codes: N30.01 - Acute cystitis with hematuria (3) Failure to thrive in adult ICD Codes: R62.7 - Adult failure to thrive SNOMED: 776686445 (4) ACS (acute coronary syndrome) ICD Codes: I24.9 - Acute ischemic heart disease, unspecified SNOMED: 824659515 (5) Atrial fibrillation with RVR ICD Codes: I48.91 - Unspecified atrial fibrillation SNOMED: 109390030037470 Assessment/Plan stable outpt Neuro surg eval xarelto cardiac rx Subjective ROS Limited/Unobtainable: No Constitutional: Reports: malaise, weakness HEENT: Reports: no symptoms Cardiovascular: Reports: no symptoms Respiratory: Reports: no symptoms Gastrointestinal/Abdominal: Reports: no symptoms Genitourinary: Reports: no symptoms Neurologic/Psychiatric: Reports: pre-existing deficit Endocrine: Reports: no symptoms Hematologic/Lymphatic: Reports: no symptoms Allergies: Coded Allergies: ADHESIVE TAPE (Unverified Allergy, Unknown, 12/25/16) PENICILLINS (Unverified Allergy, Unknown, 12/25/16) Uncoded Allergies: PENICILLIN (Allergy, Unknown, 12/25/16) All Systems: reviewed and negative except above Subjective no chest pain no sob. no new complaints. dc order placed yesterday family appealed dc because they do not want the pt to return to [facility]. Objective Last 24 Hour Vital Signs Date Time Temp Pulse Resp B/P Pulse Ox O2 Delivery O2 Flow Rate FiO2 01/03/17 08:44 119/70 01/03/17 08:43 66 119/70 01/03/17 08:43 66 119/70 01/03/17 08:00 98.2 66 18 104/59 97 Room Air 01/03/17 04:00 97.7 62 19 124/72 99 Room Air 01/03/17 00:00 98.6 73 20 101/63 100 Room Air 01/02/17 20:00 98.4 62 18 96/54 98 Room Air 01/02/17 19:03 97.7 01/02/17 16:00 97.7 67 20 114/69 98 Room Air 01/02/17 12:00 98.2 75 20 107/58 97 Room Air 01/02/17 09:04 74 137/79 01/02/17 09:04 74 137/79 Intake and Output 01/02/17 01/03/17 19:00 07:00 Intake Total 910 ml 395 ml Balance 910 ml 395 ml Intake Oral 360 ml IV Total 550 ml 395 ml # Voids 2 2 # Bowel Movements 1 Height (Feet): 5 Height (Inches): 7.00 Weight (Pounds): 130 Objective General Appearance: WD/WN, alert Neck: supple Cardiovascular: regular rhythm Respiratory/Chest: chest wall non-tender, lungs clear, normal breath sounds Abdomen: normal bowel sounds, non tender, soft, no organomegaly Edema: no edema noted Arm (L), no edema noted Arm (R), no edema noted Leg (L), no edema noted Leg (R), no edema noted Pedal (L), no edema noted Pedal (R), no edema noted Generalized YAZMIN DE LOS SANTOS Jan 03, 2017 09:03
[2017-01-03] MEDS: traMADol 50mg tab ORAL PRN (09:11)
--- NOTE | 2017-01-03 16:26 | Cardiology Report ---
APPROVED REPORT EKG Measurement Heart [id number] Atrial fibrillation Abnormal ECG
[2017-01-03] MEDS: D5 1/2NS 1,000 ML IV SCH (22:45)
[2017-01-04 04:00] VITALS: BP 116/73
--- NOTE | 2017-01-04 07:53 | General Progress Note ---
Assessment/Plan Problem List: (1) Toxic metabolic encephalopathy ICD Codes: G92 - Toxic encephalopathy SNOMED: 933231129 (2) UTI (urinary tract infection) ICD Codes: N39.0 - Urinary tract infection, site not specified SNOMED: 48552246 Qualifiers: Qualified Codes: N30.01 - Acute cystitis with hematuria (3) Failure to thrive in adult ICD Codes: R62.7 - Adult failure to thrive SNOMED: 379981538 (4) ACS (acute coronary syndrome) ICD Codes: I24.9 - Acute ischemic heart disease, unspecified SNOMED: 667462739 (5) Atrial fibrillation with RVR ICD Codes: I48.91 - Unspecified atrial fibrillation SNOMED: 927253143801370 Status: stable, progressing Assessment/Plan stable for dc chest pain is noncardiac- likely musculoskeletal outpt Neuro surg eval xarelto cardiac rx tylenol recommended for pain Subjective ROS Limited/Unobtainable: No Constitutional: Reports: malaise, weakness HEENT: Reports: no symptoms Cardiovascular: Reports: chest pain Respiratory: Reports: no symptoms Gastrointestinal/Abdominal: Reports: no symptoms Genitourinary: Reports: no symptoms Neurologic/Psychiatric: Reports: pre-existing deficit Endocrine: Reports: no symptoms Hematologic/Lymphatic: Reports: no symptoms Allergies: Coded Allergies: ADHESIVE TAPE (Unverified Allergy, Unknown, 12/25/16) PENICILLINS (Unverified Allergy, Unknown, 12/25/16) Uncoded Allergies: PENICILLIN (Allergy, Unknown, 12/25/16) All Systems: reviewed and negative except above Subjective had "1 second" episode of sharp chest pain. resolved spont. no sob. no fever or chills. Objective Last 24 Hour Vital Signs Date Time Temp Pulse Resp B/P Pulse Ox O2 Delivery O2 Flow Rate FiO2 01/04/17 04:00 99.3 74 20 116/73 96 Room Air 01/03/17 23:55 98.2 69 18 115/75 98 Room Air 01/03/17 22:33 101/73 01/03/17 20:00 98.1 70 20 97/47 98 Room Air 01/03/17 16:00 98.2 69 18 99/43 98 Room Air 01/03/17 12:00 97.9 74 18 100/55 97 Room Air 01/03/17 08:44 119/70 01/03/17 08:43 66 119/70 01/03/17 08:43 66 119/70 01/03/17 08:00 98.2 66 18 104/59 97 Room Air Intake and Output 01/03/17 01/04/17 19:00 07:00 Intake Total 900 ml Balance 900 ml Intake Oral 300 ml IV Total 600 ml # Voids 6 2 Height (Feet): 5 Height (Inches): 7.00 Weight (Pounds): 130 Objective General Appearance: WD/WN, alert Neck: supple Cardiovascular: regular rhythm Respiratory/Chest: chest wall non-tender, lungs clear, normal breath sounds Abdomen: normal bowel sounds, non tender, soft, no organomegaly Edema: no edema noted Arm (L), no edema noted Arm (R), no edema noted Leg (L), no edema noted Leg (R), no edema noted Pedal (L), no edema noted Pedal (R), no edema noted Generalized YAZMIN DE LOS SANTOS Jan 04, 2017 07:53
[2017-01-04 08:00] VITALS: BP 141/72
[2017-01-04] MEDS: Imdur 30mg tab ORAL SCH (08:31)
[2017-01-04] MEDS: Ascorbic Acid 500mg tab ORAL SCH (08:31)
[2017-01-04] MEDS: traMADol 50mg tab ORAL PRN ×2 (08:31→14:56)
[2017-01-04] MEDS: Xarelto 15mg tab ORAL SCH (08:31)
[2017-01-04] MEDS: Docusate 100mg cap ORAL SCH ×2 (08:31→18:00)
[2017-01-04] MEDS: Aspirin EC 81mg tab ORAL SCH (08:31)
[2017-01-04 12:00] VITALS: BP 111/70
[2017-01-04 16:00] VITALS: BP 99/62
--- NOTE | 2017-01-04 16:15 | Wound Care Consultation ---
Wound Assessment Wound Assessment : Wound Number: #1 Wound Present on Admission: Yes New Wound: No Status Change of Wound: No Wound Location Body Site Modif: mid Wound Location Body Site: sacral - extending to left aspect of sacral Wound Type: pressure ulcer Shekhar Test: Does not Shekhar Pressure Ulcer Stage: III - scattered stage III. Wound Thickness: Full Thickness Wound Length: 4.0 - scattered Wound Width: 3.0 - scattered Wound Depth: 0.3 Percent of Wound [place]/Red: 100 Other Colors Identified: full thickness scar tissue surrounding sacral 7.0cmx10.0cm scattered Wound Drainage Description: Serosanguineous Wound Drainage Amount: Moderate Wound Drainage Odor: None/Absent Tissue Surrounding Wound: Macerated Wound General Appearance: Reddened, Draining Wound Comment Wound Comment #1 Mid sacral extending to left aspect of sacral scattered pressure ulcer stage III.- Upon reassessment noted good progress , noted decrease in size, current wound care is effective at this time , no further deterioration present at this time. Recommendation. -Local wound care as ordered. -Turn and reposition. -Keep clean and dry. -Optimize nutrition. -Offload heels. -Apply heel protectors. -Apply low air loss SPR overlay. -Assess and follow up with MD for any changes of condition to skin. CAROL HA Jan 04, 2017 16:15
[2017-01-04] MEDS: D5 1/2NS 1,000 ML IV SCH (18:00)
[2017-01-04 20:00] VITALS: BP_SYST 109; BP_SYST 124; BP_DIAS 58; BP_DIAS 65
[2017-01-05] VITALS: BP 115/68
[2017-01-05] MEDS: traMADol 50mg tab ORAL PRN (04:27)
[2017-01-05 04:30] VITALS: BP 140/78
[2017-01-05 08:00] VITALS: BP 135/83
[2017-01-05] MEDS: Docusate 100mg cap ORAL SCH (09:14)
[2017-01-05] MEDS: Imdur 30mg tab ORAL SCH (09:14)
[2017-01-05 09:15] VITALS: BP 135/83
[2017-01-05] MEDS: Aspirin EC 81mg tab ORAL SCH (09:15)
[2017-01-05] MEDS: Xarelto 15mg tab ORAL SCH (09:15)
[2017-01-05] MEDS: Ascorbic Acid 500mg tab ORAL SCH (09:15)
[2017-01-05] MEDS ORDERED: D5 1/2NS 1000ml IV ONE (12:35)
--- NOTE | 2017-01-07 15:34 | Discharge Summary ---
Discharge Summary Hospital Course Date of Admission Dec 25, 2016 at 22:20 Date of Discharge Jan 05, 2017 at 12:36 Admitting Diagnosis FTT/uti HPI Almita Tobar is a 76 year old female who was admitted on Dec 25, 2016 at 22:20 for Failure To Thrive, Urinary Tract Infection Hospital Course [id number] Discharge Discharge Disposition Patient was discharged to SNF/Subacute Facility(03) Discharge Diagnoses: Christine Sierra NP Jan 07, 2017 15:34
--- NOTE | 2017-01-08 10:15 | Discharge Summary 2 SIG ---
DATE OF ADMISSION: 12/25/2016 DATE OF DISCHARGE: 01/05/2017 BRIEF HOSPITAL COURSE: The patient is a 76-year-old female, who was transferred from [facility] facility with complaints of confusion, failure to thrive, and weight loss. According to the patient's son, the patient has been increasingly confused and weak and has lost significant amount of weight in the last several weeks. Workup done at [facility] facility had been unremarkable and in light of the patient's continued deterioration, she was sent to the emergency room for further evaluation. Workup at ED showed urinary infection. EKG done showed no acute changes with atrial fibrillation and chest x-ray showed hyperinflation with no acute process. The patient was then admitted to medical floor for acute encephalopathy likely toxic metabolic due to infection, hypercalcemia, hypertension, atrial fibrillation, blindness, and possible early sepsis. She was started on IV antibiotic levofloxacin and was given gentle hydration. She came in with stage III scattered pressure ulcer on sacral area. Local wound care was done with offloading and was given air loss SPR 200 mattress overlay. Duplex of lower extremity showed no evidence of stenosis or occlusion. Head CT showed possible internal carotid artery aneurysm. She was then transferred to telemetry for closer monitoring. Head MRI with MRA showed a large fusiform left internal carotid artery aneurysm, which appeared unchanged from prior exam of 10/04/2013. Aneurysm appeared to be stable. She was given Xarelto and can have neurosurgery evaluation done as outpatient. A discharge order was placed on 01/02/2017, however family filed an appeal for discharge as they did not want to return to prior SNF. However, appeal was denied and the patient was then discharged back to [facility]. She had episode of chest pain, which resolved spontaneously, likely musculoskeletal and was given Tylenol for pain. She was eventually discharged back to SNF. FINAL DIAGNOSES: 1. Acute toxic metabolic encephalopathy. 2. Urinary tract infection with mixed organisms. 3. Atrial fibrillation with rapid ventricular response. 4. Acute ischemic heart disease. 5. Failure to thrive. 6. Left internal carotid artery aneurysm, stable. 7. Mid sacral scattered pressure ulcer stage III, present on admission. 8. Musculoskeletal chest pain. DISPOSITION: Discharge back to SNF. DISCHARGE MEDICATIONS: Refer to med list FOLLOW UP: Would need neurosurgery evaluation done as outpatient. Rafal Oliver M.D. I have been assigned to dictate discharge summary on this account and I was not involved in the patient's management. Christine Sierra N.P. DR: LIANNA JOB#: [id number] CC: MARCIO
== END 2017-01-05 12:36 | DRG 463 ==
LOC: EDBD 19:14 → EMR 19:40 → 4E 22:20 → EDBEDREQ 22:46 → 4W 12-29 08:06 → 2E 12-31 12:13 → 4E 01-02 07:30
DX: N39.0 Urinary tract infection, site not specified (principal); G92 Toxic encephalopathy; L89.153 Pressure ulcer of sacral region, stage 3; I24.9 Acute ischemic heart disease, unspecified; I67.1 Cerebral aneurysm, nonruptured; I48.91 Unspecified atrial fibrillation; E83.52 Hypercalcemia; I10 Essential (primary) hypertension; H54.0 Blindness, both eyes; Z88.0 Allergy status to penicillin; R07.89 Other chest pain; R62.7 Adult failure to thrive
CPT/HCPCS: 36415; 70450; 70544; 71010; 80053; 81003; 82550; 82553; 83605; 84484; 85025; 87040; 87070; 87081; 87086; 87181; 87205; 93005; 93882; 93925; 93970; J2405

== ENCOUNTER 2020-02-26 23:31 | Emergency (ER) | payer MEDICARE, MEDICAID ==
[~2020-02-26] VITALS: Ht 170.2 cm; Wt 72.6 kg
[~2020-02-26 23:31] MED LIST: ACETAMINOPHEN325 M1 ORAL; AMLODIPINE BESYL5 MG ORAL; ASCORBIC ACID500 MG ORAL; ASPIRIN EC81 MG ORAL; BISACODYL5 MG RECTAL; DOCUSATE SODIU100 MG ORAL; ISOSORBIDE MONO30 M1 PO; MELATONIN1 M2 PO; METOPROLOL TART50 M1 ORAL; MILK OF MA400 MG/51 ORAL; MULTIVITAMINS1 EAC2 ORAL; NITROGLYCERIN0.4 MG SL; PANTOPRAZOLE SO40 MG ORAL; PRO-STAT LIQUID30 ML ORAL; TRAMADOL HCL150 MG ORAL; XARELTO10 MG ORAL
--- NOTE | 2020-02-26 23:51 | Emergency Room Report ---
History of Present Illness General Chief Complaint: Pain Source: Patient Present Illness [facility] This 79-year-old female with a history of blindness, A. fib on Eliquis. She also history of chronic back pain for which she take Percocet. She resides in a custodial. She presents with chief complaint of low back pain. Is been on and off for 2 years. She received Percocet and she said it did not help much. Denies any fever chills but denies any trauma. No urinary complaint. intermediate note reported chest pain but patient denies any pain she does have pain to her back. She refused any blood work. 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 Patient History Past Medical History: see triage record, old chart reviewed Past Surgical History: other Pertinent Family History: none Social History: Denies: smoking Now: No Immunizations: other Reviewed Nursing Documentation: PMH: Agreed; PSxH: Agreed Nursing Documentation-PMH Hx Cardiac Problems: Yes - Afib Hx Hypertension: Yes - anemia Hx Cancer: No Hx Gastrointestinal Problems: Yes - GERD with esophagitis, constipation Review of Systems Eye: Denies: eye pain, blurred vision ENT: Denies: ear pain, nose congestion, throat swelling Respiratory: Denies: cough, shortness of breath Cardiovascular: Denies: chest pain, palpitations Gastrointestinal: Denies: abdominal pain, diarrhea, nausea, vomiting Musculoskeletal: Reports: back pain; Denies: joint pain Skin: Denies: rash Neurological: Denies: headache, numbness Endocrine: Denies: increased thirst, increased urine Hematologic/Lymphatic: Denies: easy bruising All Other Systems: negative except mentioned in HPI Physical Exam Vital Signs Date Time Temp Pulse Resp B/P (MAP) Pulse Ox O2 Delivery O2 Flow Rate FiO2 02/26/20 23:34 98.4 127 20 137/103 (114) 97 Nasal Cannula Vitals unremarkable except a tachycardia. Repeat heart rate 100 Sp02 EP Interpretation: reviewed, normal General Appearance: no apparent distress, alert, thin Head: normocephalic, atraumatic Eyes: bilateral eye other - Is blind ENT: hearing grossly normal, normal pharynx Neck: full range of motion, supple, no meningismus Respiratory: chest non-tender, lungs clear, normal breath sounds Cardiovascular #1: no murmur, irregularly irregular Gastrointestinal: normal bowel sounds, non tender, no mass, no organomegaly, no bruit, non-distended Musculoskeletal: back normal, normal range of motion Psychiatric: mood/affect normal Medical Decision Making Diagnostic Impression: Primary Impression: Low back pain Qualified Codes: M54.5 - Low back pain Additional Impression: UTI (urinary tract infection) Qualified Codes: N30.00 - Acute cystitis without hematuria ER Course Patient presents with exacerbation of lower back pain. Probably exacerbated by UTI. Patient refused any blood work. She is amiably stable. Better after dose of morphine. Dose of antibiotics given here. No evidence of cauda equina syndrome, spinal epidural abscess or neoplastic process. Last Vital Signs Date Time Temp Pulse Resp B/P (MAP) Pulse Ox O2 Delivery O2 Flow Rate FiO2 02/26/20 23:34 98.4 127 20 137/103 (114) 97 Nasal Cannula Status: improved Disposition: SNF Condition: Stable Scripts Cephalexin* (KEFLEX*) 500 Mg Capsule 500 MG ORAL TID, #21 CAP Prov: Nash Savage MD 02/27/20 Additional Instructions: Follow-up with your doctor in 7 days. Return if symptoms worsen. Nash Savage MD Feb 26, 2020 23:51
[2020-02-26] MEDS ORDERED: Morphine Sulfate 4mg/ml Inj (IV USE ONLY) ONE (23:57)
[2020-02-27] MEDS ORDERED: Morphine Sulfate 2mg/ml Inj(IV/IM USE ONLY) IM ONE
[2020-02-27 00:29] LABS: BILIRUBIN, URINE NEGATIVE (NEGATIVE); GLUCOSE, URINE (UA) NEGATIVE (NEGATIVE); KETONES,URINE NEGATIVE (NEGATIVE); LEUKOCYTE ESTERASE ,URINE 3+ (NEGATIVE); NITRITE,URINE NEGATIVE (NEGATIVE); PH,URINE 6 (4.5-8.0); PROTEIN,URINE 3+ (NEGATIVE); UROBILINOGEN,URINE 4 MG/DL (0.0-1.0)
[2020-02-27 00:40] LABS: APPEARANCE,URINE CLOUDY; COLOR,URINE YELLOW
[2020-02-27] MEDS ORDERED: CEPHALEXIN500 MG ORAL (00:59)
[2020-02-27] MEDS ORDERED: Cephalexin 500mg cap ORAL ONE (01:00)
[2020-02-27 01:10] VITALS: BP 129/84
[2020-02-27 01:35] VITALS: BP 129/84
== END 2020-02-27 01:35 ==
LOC: EDBD 23:31 → EMR 23:52
DX: N30.00 Acute cystitis without hematuria (principal); M54.5 Low back pain; Z88.0 Allergy status to penicillin; Z79.01 Long term (current) use of anticoagulants; R07.9 Chest pain, unspecified; I10 Essential (primary) hypertension; K21.9 Gastro-esophageal reflux disease without esophagitis
CPT/HCPCS: 81003; 87086; 87181; 96372; 99283; J2270

== ENCOUNTER 2020-04-18 11:50 | Inpatient (IN) | payer MEDICARE, MEDICAID ==
[~2020-04-18] VITALS: Ht 162.6 cm; Wt 54.4 kg
[~2020-04-18 11:50] MED LIST changes: +CEPHALEXIN500 MG ORAL
[2020-04-18 12:10] VITALS: BP 136/71
[2020-04-18] MEDS ORDERED: ELIQUIS2.5 MG ORAL (12:11)
[2020-04-18] MEDS ORDERED: LIDODERM700 M1 TOPIC (12:11)
[2020-04-18] MEDS ORDERED: SIMETHICONE80 M1 PO (12:11)
[2020-04-18] MEDS ORDERED: FLEET ENEMA133 M1 RC (12:11)
[2020-04-18] MEDS ORDERED: MECLIZINE HCL25 MG ORAL (12:11)
[2020-04-18] MEDS ORDERED: DICYCLOMINE HCL20 M1 PO (12:11)
[2020-04-18] MEDS ORDERED: OMEPRAZOLE20 M2 ORAL (12:11)
[2020-04-18] MEDS ORDERED: CRANBERRY450 M4 PO (12:11)
[2020-04-18] MEDS ORDERED: PERCOCET 5-3251 EACH ORAL (12:11)
[2020-04-18] MEDS ORDERED: ZOFRAN4 M1 ORAL (12:11)
[2020-04-18] MEDS ORDERED: MIRALAX17 G2 ORAL (12:11)
[2020-04-18] MEDS ORDERED: ASPIRIN EC325 MG ORAL (12:11)
[2020-04-18] MEDS ORDERED: NORCO 5-325 TA1 EAC1 ORAL (12:11)
--- NOTE | 2020-04-18 12:20 | Emergency Room Report ---
History of Present Illness General Chief Complaint: Generalized Weakness Source: Patient, EMS Present Illness HPI Disclaimer: Please note that this report is being documented using DRAGON technology. This can lead to erroneous entry secondary to incorrect interpretation by the dictating instrument. HPI: 80-year-old female presents from nursing facility for evaluation of generalized weakness. History of atrial fibrillation, carotid artery aneurysm which is reportedly stable, prior UTIs and dementia. Reports dysuria and frequency. Reported diarrheal illness last week though this is now resolved. She denies abdominal pain, fever, chills, nausea, vomiting. Reports decreased appetite. Denies aches or pains. She reports feeling cold and tremulous. Denies chest pain, shortness of breath or cough. Tested negative for COVID-19 last week. PMH: Dementia, hypertension, atrial fibrillation, carotid artery aneurysm PSH: Reviewed Allergies: Penicillin Social Hx: Reviewed Allergies: Coded Allergies: ADHESIVE TAPE (Unverified Allergy, Unknown, 12/25/16) PENICILLINS (Unverified Allergy, Unknown, 12/25/16) Uncoded Allergies: PENICILLIN (Allergy, Unknown, 12/25/16) COVID-19 Screening Contact w/high risk pt: No Experienced COVID-19 symptoms?: No COVID-19 Testing performed SHINE WORKER: No Nursing Documentation-PMH Hx Cardiac Problems: Yes - Afib Hx Hypertension: Yes Hx Cancer: No Review of Systems All Other Systems: negative except mentioned in HPI Physical Exam Vital Signs Date Time Temp Pulse Resp B/P (MAP) Pulse Ox O2 Delivery O2 Flow Rate FiO2 04/18/20 11:45 98.8 105 20 130/72 (91) 99 Room Air General: Awake and alert, mildly confused though answering questions appropriately HEENT: NC/AT. EOMI. dry mucous membranes Cardiovascular: Tachycardic Resp: Normal work of breathing. No cough, wheezing or crackles appreciated Abdomen: Abdomen is soft, nondistended. Nontender Skin: Intact. No abrasions, laceration or rash over the exposed skin MSK: Decreased muscle bulk. Moving all extremities. Mild contractures in the upper extremities. Tremulous. Neuro: Awake and alert. Answering questions appropriately though mildly confused Procedures Critical Care Time Critical Care Time Total critical care time: Approximately 31 minutes Due to a high probability of clinically significant, life threatening deterioration, the patient required the highest level of preparedness to intervene emergently and I personally spent this critical care time directly and personally managing the patient. This critical care time included obtaining a history, examining the patient, pulse oximetry, ordering and reviewing studies, ordering treatments, evaluating response to treatment and updating management plan as needed, frequent reassessment and discussion with other providers as well as arranging for ultimate disposition. This critical to care time was performed to assess and manage the high probability of life-threatening deterioration that could result in multiorgan failure. This critical care time is separate from the separately billable procedures and treating other patients. Medical Decision Making Diagnostic Impression: Primary Impression: Atrial fibrillation with RVR Additional Impression: UTI (urinary tract infection) ER Course This an 80-year-old female with history of atrial fibrillation, chronic UTIs presenting for generalized weakness of 1 week duration. Reportedly had a diarrheal illness last week. She arrives tachycardic in rapid atrial fibrillation. Cardizem given with good result. Heart rate now in the 70s to 80s. Remains in atrial fibrillation. Labs consistent with urinary tract infection. Other labs including troponin within normal limits. Patient stable for admission to telemetry. Admitted by her PMD, Dr. Salgado Laboratory Tests Test 04/18/20 12:05 04/18/20 13:48 White Blood Count 8.6 K/UL (4.8-10.8) Red Blood Count 3.50 M/UL (4.20-5.40) L Hemoglobin 12.3 G/DL (12.0-16.0) Hematocrit 38.1 % (37.0-47.0) Mean Corpuscular Volume 109 FL (80-99) H Mean Corpuscular Hemoglobin 35.1 PG (27.0-31.0) H Mean Corpuscular Hemoglobin Concent 32.3 G/DL (32.0-36.0) Red Cell Distribution Width 18.8 % (11.6-14.8) H Platelet Count 350 K/UL (150-450) Mean Platelet Volume 6.6 FL (6.5-10.1) Neutrophils (%) (Auto) 65.3 % (45.0-75.0) Lymphocytes (%) (Auto) 25.6 % (20.0-45.0) Monocytes (%) (Auto) 7.9 % (1.0-10.0) Eosinophils (%) (Auto) 0.4 % (0.0-3.0) Basophils (%) (Auto) 0.8 % (0.0-2.0) Prothrombin Time 11.5 SEC (9.30-11.50) Prothrombin Time INR 1.0 (0.9-1.1) Activated Partial Thromboplast Time 28 SEC (23-33) Sodium Level 142 MMOL/L (136-145) Potassium Level 3.4 MMOL/L (3.5-5.1) L Chloride Level 108 MMOL/L (98-107) H Carbon Dioxide Level 24 MMOL/L (21-32) Anion Gap 10 mmol/L (5-15) Blood Urea Nitrogen 12 mg/dL (7-18) Creatinine 1.0 MG/DL (0.55-1.30) Estimated Glomerular Filtration Rate 53.1 mL/min (>60) Glucose Level 109 MG/DL (74-106) H Calcium Level 9.6 MG/DL (8.5-10.1) Phosphorus Level 2.2 MG/DL (2.5-4.9) L Magnesium Level 1.8 MG/DL (1.8-2.4) Total Bilirubin 0.5 MG/DL (0.2-1.0) Aspartate Amino Transferase (AST) 22 U/L (15-37) Alanine Aminotransferase (ALT) 17 U/L (12-78) Alkaline Phosphatase 84 U/L (46-116) Total Creatine Kinase 26 U/L (26-308) Troponin I 0.012 ng/mL (0.000-0.056) Pro-B-Type Natriuretic Peptide 1483 pg/mL (0-125) H Total Protein 7.2 G/DL (6.4-8.2) Albumin 2.9 G/DL (3.4-5.0) L Globulin 4.3 g/dL Albumin/Globulin Ratio 0.7 (1.0-2.7) L Vitamin B12 Level 1205 PG/ML (193-986) H Folate 3.3 NG/ML (8.6-58.9) L Thyroid Stimulating Hormone (TSH) 2.688 uiU/mL (0.358-3.740) Urine Color Brown Urine Appearance Cloudy Urine pH 5 (4.5-8.0) Urine Specific [place] 1.020 (1.005-1.035) Urine Protein 4+ (NEGATIVE) H Urine Glucose (UA) Negative (NEGATIVE) Urine Ketones 2+ (NEGATIVE) H Urine Blood 5+ (NEGATIVE) H Urine Nitrite Negative (NEGATIVE) Urine Bilirubin 1+ (NEGATIVE) H Urine Ictotest Positive (NEGATIVE) Urine Urobilinogen 1 MG/DL (0.0-1.0) H Urine Leukocyte Esterase 2+ (NEGATIVE) H Urine RBC Tntc /HPF (0 - 2) H Urine WBC 15-20 /HPF (0 - 2) H Urine Squamous Epithelial Cells Occasional /LPF Urine Bacteria Few /HPF (NONE) EKG Diagnostic Results Troponin ordered: Yes When was troponin ordered?: Apr 18, 2020 EKG Time: 12:11 Rate: tachycardiac Other Impression Tachycardia, irregularly irregular rhythm. Rhythm Strip Diag. Results Rhythm Strip Time: 12:11 EP Interpretation: yes Rate: 150s Rhythm: other - Rapid atrial fibrillation Chest X-Ray Diagnostic Results Chest X-Ray Diagnostic Results : Chest X-Ray Ordered: Yes # of Views/Limited/Complete: 1 View Indication: Other - Weakness EP Interpretation: Yes Interpretation: no consolidation, no effusion, no pneumothorax, no acute cardiopulmonary disease Impression: No acute disease Electronically Signed by: Electronically signed by Dr. Alex Aguiar MD Last Vital Signs Date Time Temp Pulse Resp B/P (MAP) Pulse Ox O2 Delivery O2 Flow Rate FiO2 04/18/20 11:45 98.8 105 20 130/72 (91) 99 Room Air Disposition: ADMITTED INPATIENT Condition: Serious Alex Aguiar MD Apr 18, 2020 12:20
[2020-04-18] MEDS ORDERED: dilTIAZem HCl 25mg/5ml Inj ONE (12:22)
[2020-04-18] MEDS ORDERED: dilTIAZem HCl 25mg/5ml Inj IVP ONE (12:30)
[2020-04-18 12:59] LABS: BASOPHILS % (AUTO) 0.8 % (0.0-2.0); EOSINOPHILS % (AUTO) 0.4 % (0.0-3.0); HEMATOCRIT 38.1 % (37.0-47.0); HEMOGLOBIN 12.3 G/DL (12.0-16.0); LYMPHOCYTES % (AUTO) 25.6 % (20.0-45.0); MEAN CORPUSCULAR VOLUME 109 FL (80-99); MONOCYTES % (AUTO) 7.9 % (1.0-10.0); NEUTROPHILS % (AUTO) 65.3 % (45.0-75.0); PLATELET COUNT 350 K/UL (150-450); RED CELL DISTRIBUTION WIDTH 18.8 % (11.6-14.8); WHITE BLOOD COUNT 8.6 K/UL (4.8-10.8)
[2020-04-18 13:00] LABS: ANION GAP 10 mmol/L (5-15); BLOOD UREA NITROGEN 12 mg/dL (7-18); CALCIUM 9.6 MG/DL (8.5-10.1); CARBON DIOXIDE 24 MMOL/L (21-32); CHLORIDE 108 MMOL/L (98-107); POTASSIUM 3.4 MMOL/L (3.5-5.1); SODIUM 142 MMOL/L (136-145)
[2020-04-18 13:13] LABS: ALANINE AMINOTRANSFERASE 17 U/L (12-78); ALBUMIN 2.9 G/DL (3.4-5.0); ALBUMIN/GLOBULIN RATIO 0.7 (1.0-2.7); ALKALINE PHOSPHATASE 84 U/L (46-116); ASPARTATE AMINO TRANSFERASE 22 U/L (15-37); BILIRUBIN,TOTAL 0.5 MG/DL (0.2-1.0); CREATINE KINASE 26 U/L (26-308); PHOSPHORUS 2.2 MG/DL (2.5-4.9)
[2020-04-18] MEDS ORDERED: dilTIAZem HCl 60mg tab ORAL ONE (13:30)
[2020-04-18 14:18] LABS: APPEARANCE,URINE CLOUDY; BILIRUBIN, URINE 1+ (NEGATIVE); COLOR,URINE BROWN; GLUCOSE, URINE (UA) NEGATIVE (NEGATIVE); KETONES,URINE 2+ (NEGATIVE); LEUKOCYTE ESTERASE ,URINE 2+ (NEGATIVE); NITRITE,URINE NEGATIVE (NEGATIVE); PH,URINE 5 (4.5-8.0); PROTEIN,URINE 4+ (NEGATIVE); UROBILINOGEN,URINE 1 MG/DL (0.0-1.0)
--- NOTE | 2020-04-18 14:21 | History and Physical ---
History of Present Illness General Reason for Hospitalization: Generalized Weakness Present Illness HPI Mrs. Tobar is an 80-year-old female past medical history of hypertension, atrial fibrillation, carotid artery aneurysm who presents from SNF for generalized weakness. Patient's son at bedside and able to provide some history. Per patient, patient has been feeling weak with chills over the last week. She is unable to provide any other medical complaints at this time. Patient denies any chest pain, shortness of breath, abdominal pain, nausea, vomi ting, diarrhea, joint pain. Patient son notes that she has A. 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 Patient son notes that she has a decreased appetite since living at the SNF. He is currently bedbound unable to ambulate. No other recent illnesses or sick contacts. The ED, patient found to be in atrial fibrillation with rapid ventricular heart rate that has been controlled on multiple rounds of diltiazem. Systolic blood pressure holding in the 120s to 130s. Currently at bedside with son present patient denies any symptomatic complaints. She has a POLST pleated which shows DO NOT INTUBATE. Past medical history: Hypertension, atrial fibrillation, carotid artery aneurysm Family history: Patient unable to tell me any known family history Surgical history: None Social history: Denies smoking, drinking, drug use Allergies: Coded Allergies: ADHESIVE TAPE (Unverified Allergy, Unknown, 12/25/16) PENICILLINS (Unverified Allergy, Unknown, 12/25/16) Uncoded Allergies: PENICILLIN (Allergy, Unknown, 12/25/16) COVID-19 Screening Contact w/high risk pt: No Experienced COVID-19 symptoms?: No Medication History Scheduled Amino Acids/Protein Hydrolys (Pro-Stat Liquid), 30 ML ORAL TWICE A DAY, (Reported) Amlodipine Besylate* (Amlodipine Besylate*), 5 MG ORAL DAILY, (Reported) Apixaban (Eliquis*), 2.5 MG ORAL BID, (Reported) Ascorbic Acid* (Ascorbic Acid*), 500 MG ORAL DAILY, (Reported) Aspirin Ec* (Aspirin Ec*), 81 MG ORAL DAILY, (Reported) Aspirin* (Aspirin Ec*), 325 MG ORAL DAILY, (Reported) Cephalexin* (Keflex*), 500 MG ORAL TID Docusate Sodium* (Docusate Sodium*), 100 MG ORAL TWICE A DAY, (Reported) Isosorbide Mononitrate (Isosorbide Mononitrate Er), 30 MG PO DAILY, (Reported) Lidocaine Patch* (Lidoderm Patch*), 1 PATCH TOPIC DAILY, (Reported) Meclizine Hcl* (Meclizine*), 25 MG ORAL THREE TIMES A DAY, (Reported) Metoprolol Tartrate* (Metoprolol Tartrate*), 50 MG ORAL DAILY, (Reported) Multivitamins* (Multivitamins*), 1 TAB ORAL DAILY, (Reported) Omeprazole (Omeprazole), 20 MG ORAL DAILY, (Reported) Pantoprazole* (Pantoprazole*), 40 MG ORAL DAILY, (Reported) Polyethylene Glycol 3350* (Miralax*), 17 GM ORAL DAILY, (Reported) Rivaroxaban (Xarelto*), 15 MG ORAL DAILY, (Reported) Scheduled PRN Acetaminophen* (Acetaminophen 325MG Tablet*), 325 MG ORAL Q4H PRN for For Pain, (Reported) Bisacodyl* (Dulcolax*), 10 MG RECTAL for Constipation, (Reported) Hydrocodone Bit/Acetaminophen 5-325* ([place] 5-325 Tablet*), 1 TAB ORAL Q4H PRN for For Pain, (Reported) Magnesium Hydroxide* (Milk Of Magnesia*), 30 ML ORAL for Constipation, (Reported) Ondansetron (Zofran), 4 MG ORAL Q6H PRN for Nausea & Vomiting, (Reported) Oxycodone/Acetaminophen 5-325* (Percocet 5-325 Mg Tablet*), 1 TAB ORAL Q4H PRN for For Pain, (Reported) Tramadol HCl (Tramadol HCl ER), 50 MG ORAL TID PRN for Pain Scale (6-10), (Reported) Miscellaneous Medications Cranberry Fruit Concentrate (Cranberry), 450 MG PO, (Reported) Dicyclomine Hcl (Dicyclomine Hcl), 20 MG PO, (Reported) Melatonin (Melatonin), 3 MG PO, (Reported) Na Phos,M-B/Na Phos,Di-Ba (Fleet Enema), 133 ML RC, (Reported) Nitroglycerin (Nitroglycerin), 0.4 MG SL, (Reported) Simethicone (Simethicone), 80 MG PO, (Reported) Patient History Healthcare decision maker Resuscitation status Advanced Directive on File Review of Systems Constitutional: Reports: chills, weakness; Denies: no symptoms, see HPI, sweats, fever, malaise, other Eye: Denies: no symptoms, see HPI, eye pain, blurred vision, tearing, double vision, nose pain, nose congestion, acuity changes, discharge, other ENT: Denies: no symptoms, see HPI, ear pain, ear discharge, nose pain, nose congestion, throat pain, throat swelling, mouth pain, hearing loss, nasal discharge, other Respiratory: Denies: no symptoms, see HPI, cough, orthopnea, shortness of breath, stridor, wheezing, KNOX, sputum, other Cardiovascular: Denies: no symptoms, see HPI, chest pain, edema, palpitations, syncope, PND, other Gastrointestinal: Denies: no symptoms, see HPI, abdominal pain, constipation, diarrhea, nausea, vomiting, melena, hematemesis, other Genitourinary: Denies: no symptoms, see HPI, discharge, dysuria, frequency, hematuria, pain, retention, incontinence, urgency, vag bleed/dc, other Musculoskeletal: Denies: no symptoms, see HPI, back pain, gout, joint pain, joint swelling, muscle pain, muscle stiffness, other Skin: Denies: no symptoms, see HPI, rash, change in color, change in hair/nails, dryness, lesions, other Psychiatric: Denies: no symptoms, see HPI, prior hx, anxiety, depressed feelings, emotional problems, SI, HI, hallucinations, other Neurological: Denies: no symptoms, see HPI, headache, numbness, paresthesia, seizure, tingling, tremors, focal weakness, syncope, dizziness, other Endocrine: Denies: no symptoms, see HPI, excessive sweating, flushing, intolerance to temperature, increased thirst, increased urine, unexplained weight loss, other Hematologic/Lymphatic: Denies: no symptoms, see HPI, anemia, blood clots, easy bleeding, easy bruising, swollen glands, diathesis, other Physical Exam General Appearance: alert, alert oriented x3 HEENT: normocephalic, atraumatic Neck: non-tender, supple Respiratory/Chest: lungs clear, normal breath sounds, no respiratory distress Cardiovascular/Chest: normal rate, regularly irregular, no JVD Abdomen: normal bowel sounds, non tender, soft Extremities: normal range of motion, non-tender Neurologic: manager educational II-XII grossly normal, alert Last 24 Hour Vital Signs Date Time Temp Pulse Resp B/P (MAP) Pulse Ox O2 Delivery O2 Flow Rate FiO2 04/18/20 14:04 72 04/18/20 13:40 152 134/99 04/18/20 13:40 78 04/18/20 12:31 154 123/89 04/18/20 12:10 98.8 114 19 136/71 98 Room Air 04/18/20 12:10 114 19 Room Air 98 04/18/20 11:45 98.8 105 20 130/72 (91) 99 Room Air Laboratory Tests Test 04/18/20 12:05 04/18/20 13:48 White Blood Count 8.6 K/UL (4.8-10.8) Red Blood Count 3.50 M/UL (4.20-5.40) L Hemoglobin 12.3 G/DL (12.0-16.0) Hematocrit 38.1 % (37.0-47.0) Mean Corpuscular Volume 109 FL (80-99) H Mean Corpuscular Hemoglobin 35.1 PG (27.0-31.0) H Mean Corpuscular Hemoglobin Concent 32.3 G/DL (32.0-36.0) Red Cell Distribution Width 18.8 % (11.6-14.8) H Platelet Count 350 K/UL (150-450) Mean Platelet Volume 6.6 FL (6.5-10.1) Neutrophils (%) (Auto) 65.3 % (45.0-75.0) Lymphocytes (%) (Auto) 25.6 % (20.0-45.0) Monocytes (%) (Auto) 7.9 % (1.0-10.0) Eosinophils (%) (Auto) 0.4 % (0.0-3.0) Basophils (%) (Auto) 0.8 % (0.0-2.0) Prothrombin Time 11.5 SEC (9.30-11.50) Prothromb Time International Ratio 1.0 (0.9-1.1) Activated Partial Thromboplast Time 28 SEC (23-33) Sodium Level 142 MMOL/L (136-145) Potassium Level 3.4 MMOL/L (3.5-5.1) L Chloride Level 108 MMOL/L (98-107) H Carbon Dioxide Level 24 MMOL/L (21-32) Anion Gap 10 mmol/L (5-15) Blood Urea Nitrogen 12 mg/dL (7-18) Creatinine 1.0 MG/DL (0.55-1.30) Estimat Glomerular Filtration Rate 53.1 mL/min (>60) Glucose Level 109 MG/DL (74-106) H Calcium Level 9.6 MG/DL (8.5-10.1) Phosphorus Level 2.2 MG/DL (2.5-4.9) L Magnesium Level 1.8 MG/DL (1.8-2.4) Total Bilirubin 0.5 MG/DL (0.2-1.0) Aspartate Amino Transf (AST/SGOT) 22 U/L (15-37) Alanine Aminotransferase (ALT/SGPT) 17 U/L (12-78) Alkaline Phosphatase 84 U/L (46-116) Total Creatine Kinase 26 U/L (26-308) Troponin I 0.012 ng/mL (0.000-0.056) Pro-B-Type Natriuretic Peptide 1483 pg/mL (0-125) H Total Protein 7.2 G/DL (6.4-8.2) Albumin 2.9 G/DL (3.4-5.0) L Globulin 4.3 g/dL Albumin/Globulin Ratio 0.7 (1.0-2.7) L Urine Color Pending Urine Appearance Pending Urine pH Pending Urine Specific [place] Pending Urine Protein Pending Urine Glucose (UA) Pending Urine Ketones Pending Urine Blood Pending Urine Nitrite Pending Urine Bilirubin Pending Urine Urobilinogen Pending Urine Leukocyte Esterase Pending Microbiology Date/Time Source Procedure Growth Status 04/18/20 13:48 Rectum Received Height (Feet): 5 Height (Inches): 4.00 Weight (Pounds): 120 Assessment/Plan Assessment/Plan: Mrs. Tobar is an 80-year-old female past medical history of A. fib, hypertension, carotid artery aneurysm is presenting from [facility] for generalized weakness. A: #Atrial fibrillation with rapid ventricular heart rate 2/2 possible infectious etiology #UTI #Essential hypertension #Carotid artery aneurysm #Poor oral intake #Hypokalemia P: Status post multiple rounds of diltiazem for A. fib with RVR, heart rate better controlled, systolic blood pressure stable in the 120s to 130s Saturating well on room air, O2 saturations greater than 92%, monitor for increased O2 support We will start metoprolol 50 mg twice daily Follow-up echo for EF, wall motion abnormalities, valvular function, RSVP Electrolyte replacements Keep potassium greater than 4, magnesium greater than 2 Troponins negative Follow-up TSH, folic acid, B12 Follow-up chest x-ray BNP elevated, clinically no signs of CHF, will await results of echo and chest x-ray UA positive for UTI We will start empiric Rocephin, tailor to cultures Follow-up blood cultures, urinary cultures, MRSA screen IVF Nutritional consult Consult Dr. Calvo, cardiology, recs appreciated CM Code: DO NOT INTUBATE GI: None DVT prophylaxis: Eliquis Diet: Cardiac Dispo: Pending stabilization of atrial fibrillation, infectious process In addition to the usual care above I spent additional time reviewing records in the EMR and paper charts including physician documentation, nursing documentation, lab results, imaging and clinical documentation. Total time included was 35 min. Time spent on this encounter was 75 minutes which included 45 minutes of counseling and care coordination. I discussed with the nurse at bedside. Time of note may not reflect time patient was seen. Syd Yepez D.O Apr 18, 2020 14:21
[2020-04-18 14:40] VITALS: BP 156/78
[2020-04-18] MEDS ORDERED: Nitroglycerin Subl 0.4mg tab SL PRN (15:15)
[2020-04-18] MEDS ORDERED: Mylanta II UD 30ml ORAL PRN (15:15)
[2020-04-18] MEDS ORDERED: Metoprolol Tartrate 5mg/5ml Inj IVP PRN (15:15)
[2020-04-18] MEDS ORDERED: Albuterol/Ipratropium 3ml neb HHN PRN (15:15)
[2020-04-18 15:51] VITALS: BP 152/79
[2020-04-18 17:00] VITALS: BP 126/81
--- NOTE | 2020-04-18 17:24 | General Progress Note ---
Advance Care Planning Advance Care Planning Advance Care Planning [facility] An independent Hospitalist group, where every patient is our [facility] Internal Medicine Hospitalist Advanced Care Planning Note Please contact us at Date of Discussion: A [id number] discussion with the patient and son regarding the patient's advanced care planning took place during this hospitalization on the above date. The discussion included the explanation and discussion of advance directives and associated forms/documents, as well as the patient's current code status. We also discussed at length the patient's medical conditions (both acute and chronic), general prognosis, treatment options, and goals of care. The following summarizes the discussion: Advance Care Planning/Goals of Care: - Will attempt to fill out an AD and/or POLST with the patient prior to discharge, if not already completed - Continue current evaluation and management of any acute and chronic medical issues - Will continue to support the patient/family - Will continue to discuss both short- and long-term goals of care DPOA-HC/Surrogate Decision Maker: POSLT completed Code Status: Limited, DNI Advanced Care Planning Forms/Documents Completed: POLST completed A total of 25 minutes was spent on this discussion, including counseling, answering questions, and completing, if any, pertinent advanced care planning forms/documents. Time of note may not reflect time of encounter. Syd Yepez D.O Apr 18, 2020 17:24
--- NOTE | 2020-04-18 17:38 | Cardiac Electrophysiology PN ---
Subjective Subjective [id number] Objective Last 24 Hour Vital Signs Date Time Temp Pulse Resp B/P (MAP) Pulse Ox O2 Delivery O2 Flow Rate FiO2 04/18/20 15:51 87 152/79 04/18/20 14:40 79 156/78 04/18/20 14:04 72 04/18/20 13:40 152 134/99 04/18/20 13:40 78 04/18/20 12:31 154 123/89 04/18/20 12:10 98.8 114 19 136/71 98 Room Air 04/18/20 12:10 114 19 Room Air 98 04/18/20 11:45 98.8 105 20 130/72 (91) 99 Room Air Laboratory Tests Test 04/18/20 12:05 04/18/20 13:48 White Blood Count 8.6 K/UL (4.8-10.8) Red Blood Count 3.50 M/UL (4.20-5.40) L Hemoglobin 12.3 G/DL (12.0-16.0) Hematocrit 38.1 % (37.0-47.0) Mean Corpuscular Volume 109 FL (80-99) H Mean Corpuscular Hemoglobin 35.1 PG (27.0-31.0) H Mean Corpuscular Hemoglobin Concent 32.3 G/DL (32.0-36.0) Red Cell Distribution Width 18.8 % (11.6-14.8) H Platelet Count 350 K/UL (150-450) Mean Platelet Volume 6.6 FL (6.5-10.1) Neutrophils (%) (Auto) 65.3 % (45.0-75.0) Lymphocytes (%) (Auto) 25.6 % (20.0-45.0) Monocytes (%) (Auto) 7.9 % (1.0-10.0) Eosinophils (%) (Auto) 0.4 % (0.0-3.0) Basophils (%) (Auto) 0.8 % (0.0-2.0) Prothrombin Time 11.5 SEC (9.30-11.50) Prothromb Time International Ratio 1.0 (0.9-1.1) Activated Partial Thromboplast Time 28 SEC (23-33) Sodium Level 142 MMOL/L (136-145) Potassium Level 3.4 MMOL/L (3.5-5.1) L Chloride Level 108 MMOL/L (98-107) H Carbon Dioxide Level 24 MMOL/L (21-32) Anion Gap 10 mmol/L (5-15) Blood Urea Nitrogen 12 mg/dL (7-18) Creatinine 1.0 MG/DL (0.55-1.30) Estimat Glomerular Filtration Rate 53.1 mL/min (>60) Glucose Level 109 MG/DL (74-106) H Calcium Level 9.6 MG/DL (8.5-10.1) Phosphorus Level 2.2 MG/DL (2.5-4.9) L Magnesium Level 1.8 MG/DL (1.8-2.4) Total Bilirubin 0.5 MG/DL (0.2-1.0) Aspartate Amino Transf (AST/SGOT) 22 U/L (15-37) Alanine Aminotransferase (ALT/SGPT) 17 U/L (12-78) Alkaline Phosphatase 84 U/L (46-116) Total Creatine Kinase 26 U/L (26-308) Troponin I 0.012 ng/mL (0.000-0.056) Pro-B-Type Natriuretic Peptide 1483 pg/mL (0-125) H Total Protein 7.2 G/DL (6.4-8.2) Albumin 2.9 G/DL (3.4-5.0) L Globulin 4.3 g/dL Albumin/Globulin Ratio 0.7 (1.0-2.7) L Vitamin B12 Level 1205 PG/ML (193-986) H Folate 3.3 NG/ML (8.6-58.9) L Thyroid Stimulating Hormone (TSH) 2.688 uiU/mL (0.358-3.740) Urine Color Brown Urine Appearance Cloudy Urine pH 5 (4.5-8.0) Urine Specific [place] 1.020 (1.005-1.035) Urine Protein 4+ (NEGATIVE) H Urine Glucose (UA) Negative (NEGATIVE) Urine Ketones 2+ (NEGATIVE) H Urine Blood 5+ (NEGATIVE) H Urine Nitrite Negative (NEGATIVE) Urine Bilirubin 1+ (NEGATIVE) H Urine Ictotest Positive (NEGATIVE) Urine Urobilinogen 1 MG/DL (0.0-1.0) H Urine Leukocyte Esterase 2+ (NEGATIVE) H Urine RBC Tntc /HPF (0 - 2) H Urine WBC 15-20 /HPF (0 - 2) H Urine Squamous Epithelial Cells Occasional /LPF Urine Bacteria Few /HPF (NONE) Microbiology Date/Time Source Procedure Growth Status 04/18/20 13:48 Rectum Received Angel Calvo MD Apr 18, 2020 17:38
[2020-04-18] MEDS: cefTRIAXone 1 GM in NS 55 ML IVPB SCH (17:53)
[2020-04-18] MEDS: LR 1000ml 1,000 ML IV SCH (17:54)
[2020-04-18] MEDS: Eliquis 2.5mg tablet ORAL SCH (17:54)
[2020-04-18 20:00] VITALS: BP 108/68
--- NOTE | 2020-04-18 21:15 | Consultation ---
DATE OF CONSULTATION: 04/18/2020 CARDIOLOGY CONSULTATION REFERRING PHYSICIAN: Joanna Salgado M.D. REASON FOR CONSULTATION: Atrial fibrillation with rapid ventricular response. HISTORY OF PRESENT ILLNESS: The patient is an 80-year-old lady with a history of hypertension, atrial fibrillation, carotid artery aneurysm, who was brought from a correction facility with generalized weakness and tachycardia. The patient has been over the last week. The patient, however, denies any chest pain, shortness of breath, nausea, vomiting, or diaphoresis. Per the patient's son, the patient has had atrial fibrillation for many years, but does not know who the orchid superintendent is. The patient was found to be in atrial fibrillation with rapid ventricular response with heart rate in 130s and then received IV Cardizem as well as p.o. Cardizem. Heart rate improved. The patient has been admitted to telemetry. REVIEW OF SYSTEMS: Negative other than what is mentioned in history of present illness. PAST MEDICAL HISTORY: As mentioned above. FAMILY HISTORY: Noncontributory. SOCIAL HISTORY: She is a [facility] resident. Does not smoke or drink alcohol. PHYSICAL EXAMINATION: VITAL SIGNS: Blood pressure of 150/79, pulse is 87, respirations 18, and she is afebrile. HEAD AND NECK: No JVD. LUNGS: Clear. CARDIOVASCULAR: Irregular S1 and S2 with no gallop or murmur. ABDOMEN: Soft. EXTREMITIES: No pitting edema. LABORATORY AND DIAGNOSTIC DATA: Her initial EKG showed atrial fibrillation, rapid ventricular response, with nonspecific ST-T wave abnormalities. Her heart rate was 147. Her labs show white count of 8.6, hemoglobin 12.7, hematocrit 38.1, and platelet count 350. Sodium is 142, potassium 3.4, BUN of 12, creatinine of 1, and glucose of 109. First troponin is negative. ASSESSMENT AND PLAN: 1. Atrial fibrillation rapid ventricular response. Etiology is not clear. White count is normal. The patient is on metoprolol 50 mg b.i.d. and Eliquis 5 mg b.i.d. That will be continued. We may need to give the patient additional dose of metoprolol or Cardizem. 2. Inferolateral ischemia on 12-lead EKG. atrial fibrillation with rapid ventricular response. We will repeat troponin and get an echocardiogram for further evaluation. 3. Failure to thrive. The patient may need PEG placement. 4. History of carotid artery aneurysm. 5. Hypertension. Continue on metoprolol. It is of note that the patient's preliminary echocardiogram showed ejection fraction of 55%. No evidence of pericardial effusion. Thank you very much for allowing me to participate in the care of this patient. Please do not hesitate to contact me for any questions regarding my evaluation. Angel Calvo M.D. DR: TARAN JOB#: [id number] CC:
[2020-04-18] MEDS: Docusate 100mg cap ORAL SCH (21:38)
[2020-04-18] MEDS: Metoprolol Tartrate 50mg tab ORAL SCH (21:39)
--- NOTE | 2020-04-18 23:09 | Consultation ---
History of Present Illness General Chief Complaint: Generalized Weakness Present Illness HPI 80-year-old female past medical history of hypertension, atrial fibrillation, carotid artery aneurysm who presents from SNF for generalized weakness. Patient's son at bedside and able to provide some history. Per patient, patient has been feeling weak with chills over the last week. She is unable to provide any other medical complaints at this time. Patient denies any chest pain, shortness of breath, abdominal pain, nausea, vomiting, diarrhea, joint pain. Patient son notes that she has A. fib for many years but is unsure if she has a control system manager. Patient son notes that she has a decreased appetite since living at the SNF. He is currently bedbound unable to ambulate. No other recent illnesses or sick contacts. Allergies: Coded Allergies: ADHESIVE TAPE (Unverified Allergy, Unknown, 12/25/16) PENICILLINS (Unverified Allergy, Unknown, 12/25/16) Uncoded Allergies: PENICILLIN (Allergy, Unknown, 12/25/16) Medication History Scheduled Amino Acids/Protein Hydrolys (Pro-Stat Liquid), 30 ML ORAL TWICE A DAY, (Reported) Amlodipine Besylate* (Amlodipine Besylate*), 5 MG ORAL DAILY, (Reported) Apixaban (Eliquis*), 2.5 MG ORAL BID, (Reported) Ascorbic Acid* (Ascorbic Acid*), 500 MG ORAL DAILY, (Reported) Aspirin Ec* (Aspirin Ec*), 81 MG ORAL DAILY, (Reported) Aspirin* (Aspirin Ec*), 325 MG ORAL DAILY, (Reported) Cephalexin* (Keflex*), 500 MG ORAL TID Docusate Sodium* (Docusate Sodium*), 100 MG ORAL TWICE A DAY, (Reported) Isosorbide Mononitrate (Isosorbide Mononitrate Er), 30 MG PO DAILY, (Reported) Lidocaine Patch* (Lidoderm Patch*), 1 PATCH TOPIC DAILY, (Reported) Meclizine Hcl* (Meclizine*), 25 MG ORAL THREE TIMES A DAY, (Reported) Metoprolol Tartrate* (Metoprolol Tartrate*), 50 MG ORAL DAILY, (Reported) Multivitamins* (Multivitamins*), 1 TAB ORAL DAILY, (Reported) Omeprazole (Omeprazole), 20 MG ORAL DAILY, (Reported) Pantoprazole* (Pantoprazole*), 40 MG ORAL DAILY, (Reported) Polyethylene Glycol 3350* (Miralax*), 17 GM ORAL DAILY, (Reported) Rivaroxaban (Xarelto*), 15 MG ORAL DAILY, (Reported) Scheduled PRN Acetaminophen* (Acetaminophen 325MG Tablet*), 325 MG ORAL Q4H PRN for For Pain, (Reported) Bisacodyl* (Dulcolax*), 10 MG RECTAL for Constipation, (Reported) Hydrocodone Bit/Acetaminophen 5-325* ([place] 5-325 Tablet*), 1 TAB ORAL Q4H PRN for For Pain, (Reported) Magnesium Hydroxide* (Milk Of Magnesia*), 30 ML ORAL for Constipation, (Reported) Ondansetron (Zofran), 4 MG ORAL Q6H PRN for Nausea & Vomiting, (Reported) Oxycodone/Acetaminophen 5-325* (Percocet 5-325 Mg Tablet*), 1 TAB ORAL Q4H PRN for For Pain, (Reported) Tramadol HCl (Tramadol HCl ER), 50 MG ORAL TID PRN for Pain Scale (6-10), (Reported) Miscellaneous Medications Cranberry Fruit Concentrate (Cranberry), 450 MG PO, (Reported) Dicyclomine Hcl (Dicyclomine Hcl), 20 MG PO, (Reported) Melatonin (Melatonin), 3 MG PO, (Reported) Na Phos,M-B/Na Phos,Di-Ba (Fleet Enema), 133 ML RC, (Reported) Nitroglycerin (Nitroglycerin), 0.4 MG SL, (Reported) Simethicone (Simethicone), 80 MG PO, (Reported) Patient History Healthcare decision maker Resuscitation status Advanced Directive on File No Review of Systems All Other Systems: negative except mentioned in HPI Physical Exam General Appearance: no apparent distress, lethargic Lines, tubes and drains: peripheral HEENT: normocephalic, atraumatic Neck: non-tender, normal alignment Respiratory/Chest: chest wall non-tender, lungs clear Cardiovascular/Chest: normal peripheral pulses, tachycardia, irregularly irregular Abdomen: normal bowel sounds, non tender, soft Extremities: non-tender, normal inspection Last 24 Hour Vital Signs Date Time Temp Pulse Resp B/P (MAP) Pulse Ox O2 Delivery O2 Flow Rate FiO2 04/18/20 21:39 75 121/70 04/18/20 20:00 98.3 75 18 108/68 (81) 98 04/18/20 17:16 72 04/18/20 17:00 98.2 76 20 126/81 (96) 99 04/18/20 15:51 87 152/79 04/18/20 14:40 79 156/78 04/18/20 14:04 72 04/18/20 13:40 152 134/99 04/18/20 13:40 78 04/18/20 12:31 154 123/89 04/18/20 12:10 98.8 114 19 136/71 98 Room Air 04/18/20 12:10 114 19 Room Air 98 04/18/20 11:45 98.8 105 20 130/72 (91) 99 Room Air Laboratory Tests Test 04/18/20 12:05 04/18/20 13:48 White Blood Count 8.6 K/UL (4.8-10.8) Red Blood Count 3.50 M/UL (4.20-5.40) L Hemoglobin 12.3 G/DL (12.0-16.0) Hematocrit 38.1 % (37.0-47.0) Mean Corpuscular Volume 109 FL (80-99) H Mean Corpuscular Hemoglobin 35.1 PG (27.0-31.0) H Mean Corpuscular Hemoglobin Concent 32.3 G/DL (32.0-36.0) Red Cell Distribution Width 18.8 % (11.6-14.8) H Platelet Count 350 K/UL (150-450) Mean Platelet Volume 6.6 FL (6.5-10.1) Neutrophils (%) (Auto) 65.3 % (45.0-75.0) Lymphocytes (%) (Auto) 25.6 % (20.0-45.0) Monocytes (%) (Auto) 7.9 % (1.0-10.0) Eosinophils (%) (Auto) 0.4 % (0.0-3.0) Basophils (%) (Auto) 0.8 % (0.0-2.0) Prothrombin Time 11.5 SEC (9.30-11.50) Prothromb Time International Ratio 1.0 (0.9-1.1) Activated Partial Thromboplast Time 28 SEC (23-33) Sodium Level 142 MMOL/L (136-145) Potassium Level 3.4 MMOL/L (3.5-5.1) L Chloride Level 108 MMOL/L (98-107) H Carbon Dioxide Level 24 MMOL/L (21-32) Anion Gap 10 mmol/L (5-15) Blood Urea Nitrogen 12 mg/dL (7-18) Creatinine 1.0 MG/DL (0.55-1.30) Estimat Glomerular Filtration Rate 53.1 mL/min (>60) Glucose Level 109 MG/DL (74-106) H Calcium Level 9.6 MG/DL (8.5-10.1) Phosphorus Level 2.2 MG/DL (2.5-4.9) L Magnesium Level 1.8 MG/DL (1.8-2.4) Total Bilirubin 0.5 MG/DL (0.2-1.0) Aspartate Amino Transf (AST/SGOT) 22 U/L (15-37) Alanine Aminotransferase (ALT/SGPT) 17 U/L (12-78) Alkaline Phosphatase 84 U/L (46-116) Total Creatine Kinase 26 U/L (26-308) Troponin I 0.012 ng/mL (0.000-0.056) Pro-B-Type Natriuretic Peptide 1483 pg/mL (0-125) H Total Protein 7.2 G/DL (6.4-8.2) Albumin 2.9 G/DL (3.4-5.0) L Globulin 4.3 g/dL Albumin/Globulin Ratio 0.7 (1.0-2.7) L Vitamin B12 Level 1205 PG/ML (193-986) H Folate 3.3 NG/ML (8.6-58.9) L Thyroid Stimulating Hormone (TSH) 2.688 uiU/mL (0.358-3.740) Urine Color Brown Urine Appearance Cloudy Urine pH 5 (4.5-8.0) Urine Specific [place] 1.020 (1.005-1.035) Urine Protein 4+ (NEGATIVE) H Urine Glucose (UA) Negative (NEGATIVE) Urine Ketones 2+ (NEGATIVE) H Urine Blood 5+ (NEGATIVE) H Urine Nitrite Negative (NEGATIVE) Urine Bilirubin 1+ (NEGATIVE) H Urine Ictotest Positive (NEGATIVE) Urine Urobilinogen 1 MG/DL (0.0-1.0) H Urine Leukocyte Esterase 2+ (NEGATIVE) H Urine RBC Tntc /HPF (0 - 2) H Urine WBC 15-20 /HPF (0 - 2) H Urine Squamous Epithelial Cells Occasional /LPF Urine Bacteria Few /HPF (NONE) Microbiology Date/Time Source Procedure Growth Status 04/18/20 13:48 Rectum Received Height (Feet): 5 Height (Inches): 4.00 Weight (Pounds): 120 Medications Current Medications Medications (Trade) Dose Ordered Sig/Chad Route PRN Reason Start Time Stop Time Status Last Admin Dose Admin Acetaminophen (Tylenol) 650 mg Q4H PRN ORAL Mild Pain (Pain Scale 1-3) 04/18/20 15:15 05/18/20 15:14 Acetaminophen (Tylenol) 650 mg Q4H PRN ORAL Temp >100.5 04/18/20 15:15 05/18/20 15:14 Al Hydroxide/Mg Hydroxide (Mylanta II) 30 ml Q6H PRN ORAL dyspepsia 04/18/20 15:15 05/18/20 15:14 Albuterol/ Ipratropium (Albuterol/ Ipratropium) 3 ml Q4H PRN HHN Shortness of Breath 04/18/20 15:15 04/23/20 15:14 Apixaban (Eliquis) 2.5 mg BID ORAL 04/18/20 18:00 07/17/20 17:59 04/18/20 17:54 Ceftriaxone Sodium 1 gm/ Sodium Chloride 55 ml @ 110 mls/hr DAILY IVPB 04/18/20 18:00 04/25/20 17:59 04/18/20 17:53 Dextrose (Dextrose 50%) 25 ml Q30M PRN IV Hypoglycemia 04/18/20 15:15 07/17/20 15:14 Dextrose (Dextrose 50%) 50 ml Q30M PRN IV Hypoglycemia 04/18/20 15:15 07/17/20 15:14 Docusate Sodium (Colace) 100 mg EVERY 12 HOURS ORAL 04/18/20 21:00 05/18/20 20:59 04/18/20 21:38 Lactated Ringer's 1,000 ml @ 100 mls/hr Q10H IV 04/18/20 18:30 05/18/20 18:29 04/18/20 17:54 Metoprolol Tartrate (Lopressor) 5 mg Q5M PRN IVP afib with RVR HR > 120 up 04/18/20 15:15 07/17/20 15:14 Metoprolol Tartrate (Lopressor) 50 mg Q12HR ORAL 04/18/20 21:00 07/17/20 20:59 04/18/20 21:39 Nitroglycerin (Ntg) 0.4 mg Q5M PRN SL Prn Chest Pain 04/18/20 15:15 05/18/20 15:14 Assessment/Plan Diagnosis [place] I: #afib with RVR #UTI #Hypokalemia #Hypophos #failure to thrive #HTN #anemia - admit to tele - IVF - replete lytes - cardiology eval - ceftriaxone for UTI - meop 50 BID - apixaban 2.5mg BID - monitor lytes - monitor for bleeding #DNR time spent 65min Joanna Salgado M.D. Apr 18, 2020 23:09
[2020-04-19] VITALS: BP 119/78
[2020-04-19 04:00] VITALS: BP 120/66
[2020-04-19] MEDS: LR 1000ml 1,000 ML IV SCH (04:37)
[2020-04-19 07:14] LABS: HEMATOCRIT 37.9 % (37.0-47.0); HEMOGLOBIN 11.9 G/DL (12.0-16.0); MEAN CORPUSCULAR VOLUME 113 FL (80-99); PLATELET COUNT 297 K/UL (150-450); RED BLOOD COUNT 3.35 M/UL (4.20-5.40); RED CELL DISTRIBUTION WIDTH 18.9 % (11.6-14.8); WHITE BLOOD COUNT 8.2 K/UL (4.8-10.8)
[2020-04-19 07:31] LABS: ANION GAP 9 mmol/L (5-15); BLOOD UREA NITROGEN 10 mg/dL (7-18); CALCIUM 9.1 MG/DL (8.5-10.1); CARBON DIOXIDE 25 MMOL/L (21-32); CHLORIDE 108 MMOL/L (98-107); CREATININE 0.9 MG/DL (0.55-1.30); POTASSIUM 3.8 MMOL/L (3.5-5.1); SODIUM 142 MMOL/L (136-145)
[2020-04-19 08:00] VITALS: BP_SYST 120; BP_SYST 127; BP_DIAS 65
[2020-04-19] MEDS: cefTRIAXone 1 GM in NS 55 ML IVPB SCH (09:43)
[2020-04-19] MEDS: Metoprolol Tartrate 50mg tab ORAL SCH ×2 (09:43→21:37)
[2020-04-19] MEDS: Docusate 100mg cap ORAL SCH ×2 (09:43→21:36)
[2020-04-19] MEDS: Eliquis 2.5mg tablet ORAL SCH ×2 (09:44→18:12)
--- NOTE | 2020-04-19 09:53 | General Progress Note ---
Subjective Constitutional: Denies: no symptoms, chills, diaphoresis, fever, malaise, weakness, other HEENT: Denies: no symptoms, eye pain, blurred vision, tearing, double vision, ear pain, ear discharge, nose pain, nose congestion, throat pain, throat swelling, mouth pain, mouth swelling, other Cardiovascular: Denies: no symptoms, chest pain, edema, irregular heart rate, lightheadedness, palpitations, syncope, other Respiratory: Denies: no symptoms, cough, orthopnea, shortness of breath, SOB with excertion, SOB at rest, sputum, stridor, wheezing, other Gastrointestinal/Abdominal: Denies: no symptoms, abdomen distended, abdominal pain, black stools, tarry stools, blood in stool, constipated, diarrhea, difficulty swallowing, nausea, poor appetite, poor fluid intake, rectal bleeding, vomiting, other Genitourinary: Denies: no symptoms, burning, discharge, frequency, flank pain, hematuria, incontinence, pain, urgency, other Neurologic/Psychiatric: Denies: no symptoms, anxiety, depressed, emotional problems, headache, numbness, paresthesia, pre-existing deficit, seizure, tingling, tremors, weakness, other Endocrine: Denies: no symptoms, excessive sweating, flushing, intolerance to cold, intolerance to heat, increased hunger, increased thirst, increased urine, unexplained weight gain, unexplained weight loss, other Hematologic/Lymphatic: Denies: no symptoms, anemia, easy bleeding, easy bruising, other Allergies: Coded Allergies: ADHESIVE TAPE (Unverified Allergy, Unknown, 12/25/16) PENICILLINS (Unverified Allergy, Unknown, 12/25/16) Uncoded Allergies: PENICILLIN (Allergy, Unknown, 12/25/16) Subjective No acute events overnight. Patient resting comfortably in bed. Denies any chest pain, shortness of breath, palpitations. Objective Last 24 Hour Vital Signs Date Time Temp Pulse Resp B/P (MAP) Pulse Ox O2 Delivery O2 Flow Rate FiO2 04/19/20 09:43 80 127/65 04/19/20 04:00 98.6 75 18 120/66 (84) 98 04/19/20 04:00 71 04/19/20 00:00 98.8 73 18 119/78 (92) 98 04/19/20 00:00 72 04/18/20 21:39 75 121/70 04/18/20 21:00 Room Air 04/18/20 20:00 98.3 75 18 108/68 (81) 98 04/18/20 20:00 72 04/18/20 17:16 72 04/18/20 17:00 98.2 76 20 126/81 (96) 99 04/18/20 15:51 87 152/79 04/18/20 14:40 79 156/78 04/18/20 14:04 72 04/18/20 13:40 152 134/99 04/18/20 13:40 78 04/18/20 12:31 154 123/89 04/18/20 12:10 98.8 114 19 136/71 98 Room Air 04/18/20 12:10 114 19 Room Air 98 04/18/20 11:45 98.8 105 20 130/72 (91) 99 Room Air Intake and Output 04/18/20 04/19/20 19:00 07:00 Intake Total 155 ml 1040 ml Balance 155 ml 1040 ml Intake Oral 0 ml 40 ml IV Total 155 ml 1000 ml Laboratory Tests 04/18/20 12:05: White Blood Count 8.6, Red Blood Count 3.50L, Hemoglobin 12.3, Hematocrit 38.1, Mean Corpuscular Volume 109H, Mean Corpuscular Hemoglobin 35.1H, Mean Corpuscular Hemoglobin Concent 32.3, Red Cell Distribution Width 18.8H, Platelet Count 350, Mean Platelet Volume 6.6, Neutrophils (%) (Auto) 65.3, Lymphocytes (%) (Auto) 25.6, Monocytes (%) (Auto) 7.9, Eosinophils (%) (Auto) 0.4, Basophils (%) (Auto) 0.8, Prothrombin Time 11.5, Prothromb Time International Ratio 1.0, Activated Partial Thromboplast Time 28, Sodium Level 142, Potassium Level 3.4L, Chloride Level 108H, Carbon Dioxide Level 24, Anion Gap 10, Blood Urea Nitrogen 12, Creatinine 1.0, Estimat Glomerular Filtration Rate 53.1, Glucose Level 109H, Calcium Level 9.6, Phosphorus Level 2.2L, Magnesium Level 1.8, Total Bilirubin 0.5, Aspartate Amino Transf (AST/SGOT) 22, Alanine Aminotransferase (ALT/SGPT) 17, Alkaline Phosphatase 84, Total Creatine Kinase 26, Troponin I 0.012, Pro-B-Type Natriuretic Peptide 1483H, Total Protein 7.2, Albumin 2.9L, Globulin 4.3, Albumin/Globulin Ratio 0.7L, Vitamin B12 Level 1205H, Folate 3.3L, Thyroid Stimulating Hormone (TSH) 2.688 04/18/20 13:48: Urine Color Brown, Urine Appearance Cloudy, Urine pH 5, Urine Specific [place] 1.020, Urine Protein 4+H, Urine Glucose (UA) Negative, Urine Ketones 2+H, Urine Blood 5+H, Urine Nitrite Negative, Urine Bilirubin 1+H, Urine Ictotest Positive, Urine Urobilinogen 1H, Urine Leukocyte Esterase 2+H, Urine RBC TntcH, Urine WBC 15-20H, Urine Squamous Epithelial Cells Occasional, Urine Bacteria Few 04/19/20 05:10: White Blood Count 8.2, Red Blood Count 3.35L, Hemoglobin 11.9L, Hematocrit 37.9, Mean Corpuscular Volume 113H, Mean Corpuscular Hemoglobin 35.6H, Mean Corpuscular Hemoglobin Concent 31.4L, Red Cell Distribution Width 18.9H, Platelet Count 297, Mean Platelet Volume 6.5, Neutrophils (%) (Auto) , Lymphocytes (%) (Auto) , Monocytes (%) (Auto) , Eosinophils (%) (Auto) , Basophils (%) (Auto) , Sodium Level 142, Potassium Level 3.8, Chloride Level 108H, Carbon Dioxide Level 25, Anion Gap 9, Blood Urea Nitrogen 10, Creatinine 0.9, Estimat Glomerular Filtration Rate > 60, Glucose Level 88, Calcium Level 9.1, Neutrophils % (Manual) [Pending], Lymphocytes % (Manual) [Pending], Platelet Estimate [Pending], Platelet Morphology [Pending], Hemoglobin A1c 5.5 Height (Feet): 5 Height (Inches): 4.00 Weight (Pounds): 120 General Appearance: no apparent distress, alert EENT: PERRL/EOMI, normal ENT inspection Neck: non-tender, normal alignment Cardiovascular: normal rate, regular rhythm, no JVD Respiratory/Chest: lungs clear, normal breath sounds Abdomen: normal bowel sounds, non tender, soft Extremities: non-tender Edema: no edema noted Arm (L), no edema noted Arm (R), no edema noted Leg (L), no edema noted Leg (R), no edema noted Pedal (L), no edema noted Pedal (R), no edema noted Generalized Neurologic: materials tech II-XII grossly normal, alert Skin: normal pigmentation, warm/dry Assessment/Plan Assessment/Plan: Mrs. Tobar is an 80-year-old female past medical history of A. fib, h ypertension, carotid artery aneurysm is presenting from SNF for generalized weakness. 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 I #Essential hypertension #Carotid artery aneurysm #Poor oral intake #Hypokalemia P: Currently hemodynamically stable Saturating well on room air, O2 saturations greater than 92%, monitor for increased O2 support Continue metoprolol 50 mg twice daily On Eliquis Echo 55%, no regional wall motion abnormalities, RSVP 43 Keep potassium greater than 4, magnesium greater than 2 Troponins negative Still waiting on follow-up chest x-ray BNP elevated, clinically no signs of CHF, will await results of echo and chest x-ray UA positive for UTI Continue Rocephin for now tailored antibiotics to cultures Follow-up blood cultures, urinary cultures, MRSA screen IVF Replace folic acid deficiency Nutritional consult Consult Dr. Calvo, cardiology, recs appreciated Consult Dr. Salgado, nephrology, recs appreciated CM Code: DO NOT INTUBATE GI: None DVT prophylaxis: Eliquis Diet: Cardiac Dispo: Pending stabilization of atrial fibrillation, infectious process Time spent on this encounter was 45 minutes which included 25 minutes of counseling and care coordination. I discussed with the nurse at bedside. Time of note may not reflect time patient was seen. Syd Yepez D.O Apr 19, 2020 09:53
--- NOTE | 2020-04-19 09:58 | Nephrology Progress Note ---
Assessment/Plan Plan #afib with RVR #UTI #Hypokalemia #Hypophos #failure to thrive #HTN #anemia - admit to tele - IVF - replete lytes - cardiology eval - ceftriaxone for UTI - meop 50 BID - apixaban 2.5mg BID - monitor lytes - monitor for bleeding time spent 65min Subjective ROS Limited/Unobtainable: No Constitutional: Reports: weakness HEENT: Denies: no symptoms, eye pain, blurred vision, tearing, double vision, ear pain, ear discharge, nose pain, nose congestion, throat pain, throat swelling, mouth pain, mouth swelling, other Genitourinary: Denies: no symptoms, burning, discharge, frequency, flank pain, hematuria, incontinence, pain, urgency, other Neurologic/Psychiatric: Denies: no symptoms, anxiety, depressed, emotional pr oblems, headache, numbness, paresthesia, pre-existing deficit, seizure, tingling, tremors, weakness, other Objective Objective Last 24 Hour Vital Signs Date Time Temp Pulse Resp B/P (MAP) Pulse Ox O2 Delivery O2 Flow Rate FiO2 04/19/20 09:43 80 127/65 04/19/20 04:00 98.6 75 18 120/66 (84) 98 04/19/20 04:00 71 04/19/20 00:00 98.8 73 18 119/78 (92) 98 04/19/20 00:00 72 04/18/20 21:39 75 121/70 04/18/20 21:00 Room Air 04/18/20 20:00 98.3 75 18 108/68 (81) 98 04/18/20 20:00 72 04/18/20 17:16 72 04/18/20 17:00 98.2 76 20 126/81 (96) 99 04/18/20 15:51 87 152/79 04/18/20 14:40 79 156/78 04/18/20 14:04 72 04/18/20 13:40 152 134/99 04/18/20 13:40 78 04/18/20 12:31 154 123/89 04/18/20 12:10 98.8 114 19 136/71 98 Room Air 04/18/20 12:10 114 19 Room Air 98 04/18/20 11:45 98.8 105 20 130/72 (91) 99 Room Air Intake and Output 04/18/20 04/19/20 19:00 07:00 Intake Total 155 ml 1040 ml Balance 155 ml 1040 ml Intake Oral 0 ml 40 ml IV Total 155 ml 1000 ml Laboratory Tests 04/18/20 12:05: White Blood Count 8.6, Red Blood Count 3.50L, Hemoglobin 12.3, Hematocrit 38.1, Mean Corpuscular Volume 109H, Mean Corpuscular Hemoglobin 35.1H, Mean Corpuscular Hemoglobin Concent 32.3, Red Cell Distribution Width 18.8H, Platelet Count 350, Mean Platelet Volume 6.6, Neutrophils (%) (Auto) 65.3, Lymphocytes (%) (Auto) 25.6, Monocytes (%) (Auto) 7.9, Eosinophils (%) (Auto) 0.4, Basophils (%) (Auto) 0.8, Prothrombin Time 11.5, Prothromb Time International Ratio 1.0, Activated Partial Thromboplast Time 28, Sodium Level 142, Potassium Level 3.4L, Chloride Level 108H, Carbon Dioxide Level 24, Anion Gap 10, Blood Urea Nitrogen 12, Creatinine 1.0, Estimat Glomerular Filtration Rate 53.1, Glucose Level 109H, Calcium Level 9.6, Phosphorus Level 2.2L, Magnesium Level 1.8, Total Bilirubin 0.5, Aspartate Amino Transf (AST/SGOT) 22, Alanine Aminotransferase (ALT/SGPT) 1 7, Alkaline Phosphatase 84, Total Creatine Kinase 26, Troponin I 0.012, Pro-B-Type Natriuretic Peptide 1483H, Total Protein 7.2, Albumin 2.9L, Globulin 4.3, Albumin/Globulin Ratio 0.7L, Vitamin B12 Level 1205H, Folate 3.3L, Thyroid Stimulating Hormone (TSH) 2.688 04/18/20 13:48: Urine Color Brown, Urine Appearance Cloudy, Urine pH 5, Urine Specific [place] 1.020, Urine Protein 4+H, Urine Glucose (UA) Negative, Urine Ketones 2+H, Urine Blood 5+H, Urine Nitrite Negative, Urine Bilirubin 1+H, Urine Ictotest Positive, Urine Urobilinogen 1H, Urine Leukocyte Esterase 2+H, Urine RBC TntcH, Urine WBC 15-20H, Urine Squamous Epithelial Cells Occasional, Urine Bacteria Few 04/19/20 05:10: White Blood Count 8.2, Red Blood Count 3.35L, Hemoglobin 11.9L, Hematocrit 37.9, Mean Corpuscular Volume 113H, Mean Corpuscular Hemoglobin 35.6H, Mean Corpuscular Hemoglobin Concent 31.4L, Red Cell Distribution Width 18.9H, Platelet Count 297, Mean Platelet Volume 6.5, Neutrophils (%) (Auto) , Lymphocytes (%) (Auto) , Monocytes (%) (Auto) , Eosinophils (%) (Auto) , Basophils (%) (Auto) , Sodium Level 142, Potassium Level 3.8, Chloride Level 108H, Carbon Dioxide Level 25, Anion Gap 9, Blood Urea Nitrogen 10, Creatinine 0.9, Estimat Glomerular Filtration Rate > 60, Glucose Level 88, Calcium Level 9.1, Neutrophils % (Manual) [Pending], Lymphocytes % (Manual) [Pending], Platelet Estimate [Pending], Platelet Morphology [Pending], Hemoglobin A1c 5.5 Height (Feet): 5 Height (Inches): 4.00 Weight (Pounds): 120 Joanna Salgado M.D. Apr 19, 2020 09:58
[2020-04-19] MEDS: D5 1/2NS w/KCl 20mEq 1,000 ML IV SCH (11:33)
[2020-04-19 11:53] VITALS: BP 129/78
--- NOTE | 2020-04-19 12:13 | Cardiac Electrophysiology PN ---
Assessment/Plan Assessment/Plan 1. Atrial fibrillation rapid ventricular response. Etiology is not clear. White count is normal. Rate stable on metoprolol 50 mg b.i.d. and Eliquis 5 mg b.i.d. 2. Inferolateral ischemia on 12-lead EKG. Likely due to Atrial fibrillation with rapid ventricular response. First troponin is negative. Rule out for RI EF 55% 3. Failure to thrive. The patient may need PEG placement. 4. History of carotid artery aneurysm. 5. Hypertension. Continue on metoprolol. Subjective Subjective Confused with no urine out put and bladder scan only 72 cc. Now on iv fluid at 100 cc/hr Objective Last 24 Hour Vital Signs Date Time Temp Pulse Resp B/P (MAP) Pulse Ox O2 Delivery O2 Flow Rate FiO2 04/19/20 11:53 96.7 87 18 129/78 (95) 100 04/19/20 09:43 80 127/65 04/19/20 09:00 Room Air 04/19/20 08:00 97.7 80 19 127/65 (85) 100 04/19/20 08:00 79 04/19/20 04:00 98.6 75 18 120/66 (84) 98 04/19/20 04:00 71 04/19/20 00:00 98.8 73 18 119/78 (92) 98 04/19/20 00:00 72 04/18/20 21:39 75 121/70 04/18/20 21:00 Room Air 04/18/20 20:00 98.3 75 18 108/68 (81) 98 04/18/20 20:00 72 04/18/20 17:16 72 04/18/20 17:00 98.2 76 20 126/81 (96) 99 04/18/20 15:51 87 152/79 04/18/20 14:40 79 156/78 04/18/20 14:04 72 04/18/20 13:40 152 134/99 04/18/20 13:40 78 04/18/20 12:31 154 123/89 04/18/20 12:10 98.8 114 19 136/71 98 Room Air 04/18/20 12:10 114 19 Room Air 98 Intake and Output 04/18/20 04/19/20 19:00 07:00 Intake Total 155 ml 1040 ml Balance 155 ml 1040 ml Intake Oral 0 ml 40 ml IV Total 155 ml 1000 ml Laboratory Tests Test 04/18/20 12:05 04/18/20 13:48 04/19/20 05:10 White Blood Count 8.6 K/UL (4.8-10.8) 8.2 K/UL (4.8-10.8) Red Blood Count 3.50 M/UL (4.20-5.40) L 3.35 M/UL (4.20-5.40) L Hemoglobin 12.3 G/DL (12.0-16.0) 11.9 G/DL (12.0-16.0) L Hematocrit 38.1 % (37.0-47.0) 37.9 % (37.0-47.0) Mean Corpuscular Volume 109 FL (80-99) H 113 FL (80-99) H Mean Corpuscular Hemoglobin 35.1 PG (27.0-31.0) H 35.6 PG (27.0-31.0) H Mean Corpuscular Hemoglobin Concent 32.3 G/DL (32.0-36.0) 31.4 G/DL (32.0-36.0) L Red Cell Distribution Width 18.8 % (11.6-14.8) H 18.9 % (11.6-14.8) H Platelet Count 350 K/UL (150-450) 297 K/UL (150-450) Mean Platelet Volume 6.6 FL (6.5-10.1) 6.5 FL (6.5-10.1) Neutrophils (%) (Auto) 65.3 % (45.0-75.0) % (45.0-75.0) Lymphocytes (%) (Auto) 25.6 % (20.0-45.0) % (20.0-45.0) Monocytes (%) (Auto) 7.9 % (1.0-10.0) % (1.0-10.0) Eosinophils (%) (Auto) 0.4 % (0.0-3.0) % (0.0-3.0) Basophils (%) (Auto) 0.8 % (0.0-2.0) % (0.0-2.0) Prothrombin Time 11.5 SEC (9.30-11.50) Prothromb Time International Ratio 1.0 (0.9-1.1) Activated Partial Thromboplast Time 28 SEC (23-33) Sodium Level 142 MMOL/L (136-145) 142 MMOL/L (136-145) Potassium Level 3.4 MMOL/L (3.5-5.1) L 3.8 MMOL/L (3.5-5.1) Chloride Level 108 MMOL/L (98-107) H 108 MMOL/L (98-107) H Carbon Dioxide Level 24 MMOL/L (21-32) 25 MMOL/L (21-32) Anion Gap 10 mmol/L (5-15) 9 mmol/L (5-15) Blood Urea Nitrogen 12 mg/dL (7-18) 10 mg/dL (7-18) Creatinine 1.0 MG/DL (0.55-1.30) 0.9 MG/DL (0.55-1.30) Estimat Glomerular Filtration Rate 53.1 mL/min (>60) > 60 mL/min (>60) Glucose Level 109 MG/DL (74-106) H 88 MG/DL (74-106) Calcium Level 9.6 MG/DL (8.5-10.1) 9.1 MG/DL (8.5-10.1) Phosphorus Level 2.2 MG/DL (2.5-4.9) L Magnesium Level 1.8 MG/DL (1.8-2.4) Total Bilirubin 0.5 MG/DL (0.2-1.0) Aspartate Amino Transf (AST/SGOT) 22 U/L (15-37) Alanine Aminotransferase (ALT/SGPT) 17 U/L (12-78) Alkaline Phosphatase 84 U/L (46-116) Total Creatine Kinase 26 U/L (26-308) Troponin I 0.012 ng/mL (0.000-0.056) Pro-B-Type Natriuretic Peptide 1483 pg/mL (0-125) H Total Protein 7.2 G/DL (6.4-8.2) Albumin 2.9 G/DL (3.4-5.0) L Globulin 4.3 g/dL Albumin/Globulin Ratio 0.7 (1.0-2.7) L Vitamin B12 Level 1205 PG/ML (193-986) H Folate 3.3 NG/ML (8.6-58.9) L Thyroid Stimulating Hormone (TSH) 2.688 uiU/mL (0.358-3.740) Urine Color Brown Urine Appearance Cloudy Urine pH 5 (4.5-8.0) Urine Specific [place] 1.020 (1.005-1.035) Urine Protein 4+ (NEGATIVE) H Urine Glucose (UA) Negative (NEGATIVE) Urine Ketones 2+ (NEGATIVE) H Urine Blood 5+ (NEGATIVE) H Urine Nitrite Negative (NEGATIVE) Urine Bilirubin 1+ (NEGATIVE) H Urine Ictotest Positive (NEGATIVE) Urine Urobilinogen 1 MG/DL (0.0-1.0) H Urine Leukocyte Esterase 2+ (NEGATIVE) H Urine RBC Tntc /HPF (0 - 2) H Urine WBC 15-20 /HPF (0 - 2) H Urine Squamous Epithelial Cells Occasional /LPF Urine Bacteria Few /HPF (NONE) Differential Total Cells Counted 100 Neutrophils % (Manual) 79 % (45-75) H Lymphocytes % (Manual) 14 % (20-45) L Monocytes % (Manual) 7 % (1-10) Eosinophils % (Manual) 0 % (0-3) Basophils % (Manual) 0 % (0-2) Band Neutrophils 0 % (0-8) Platelet Estimate Adequate Platelet Morphology Normal Hypochromasia 1+ Anisocytosis 1+ Macrocytosis 1+ Hemoglobin A1c 5.5 % (4.3-6.0) Microbiology Date/Time Source Procedure Growth Status 04/18/20 13:48 Rectum Received 04/18/20 13:48 Urine,Clean Catch Urine Culture - Preliminary Gram Negative Arnol Resulted Objective HEAD AND NECK: No JVD. LUNGS: Clear. CARDIOVASCULAR: Irregular S1 and S2 with no gallop or murmur. ABDOMEN: Soft. EXTREMITIES: No pitting edema. Angel Calvo MD Apr 19, 2020 12:13
[2020-04-19] MEDS ORDERED: OMEPRAZOLE5 GM PO (15:47)
[2020-04-19 16:00] VITALS: BP 116/74
[2020-04-19] MEDS ORDERED: SENNA8.6 M2 PO (16:04)
[2020-04-19] MEDS ORDERED: VITAMIN A & D454 GM TOP (16:04)
[2020-04-19] MEDS ORDERED: ARTIFICIAL TEAR15 ML BOTH EYES (16:04)
[2020-04-19] MEDS ORDERED: COSOPT EYE DROP10 M1 OP (16:04)
[2020-04-19] MEDS ORDERED: DERMASEPTIN OI113 GM TP (16:04)
[2020-04-19] MEDS ORDERED: PROMETHAZI6.25 MG/1 ORAL (16:04)
--- NOTE | 2020-04-19 16:25 | Consultation ---
History of Present Illness General Date patient seen: Apr 19, 2020 Reason for Hospitalization: Generalized Weakness Present Illness Allergies: Coded Allergies: ADHESIVE TAPE (Unverified Allergy, Unknown, 12/25/16) PENICILLINS (Unverified Allergy, Unknown, 12/25/16) Uncoded Allergies: PENICILLIN (Allergy, Unknown, 12/25/16) COVID-19 Screening Contact w/high risk pt: No Experienced COVID-19 symptoms?: No Medication History Scheduled Amino Acids/Protein Hydrolys (Pro-Stat Liquid), 30 ML ORAL DAILY, (Reported) Apixaban (Eliquis*), 2.5 MG ORAL BID, (Reported) Ascorbic Acid* (Ascorbic Acid*), 500 MG ORAL DAILY, (Reported) Aspirin* (Aspirin Ec*), 325 MG ORAL DAILY, (Reported) Cranberry Fruit Concentrate (Cranberry), 450 MG PO DAILY, (Reported) Dextran 70/Hypromellose (Artificial Tears Eye Drops*), 1 DROP BOTH EYES DAILY, (Reported) Dicyclomine Hcl (Dicyclomine Hcl), 20 MG PO Q6HR, (Reported) Docusate Sodium* (Docusate Sodium*), 100 MG ORAL TWICE A DAY, (Reported) Dorzolamide Hcl/Timolol Maleat (Cosopt Eye Drops), 1 DROP OP BID, (Reported) Lidocaine Patch* (Lidoderm Patch*), 1 PATCH TOPIC DAILY, (Reported) Meclizine Hcl* (Meclizine*), 25 MG ORAL DAILY, (Reported) Metoprolol Tartrate* (Metoprolol Tartrate*), 50 MG ORAL DAILY, (Reported) Multivitamins* (Multivitamins*), 1 TAB ORAL DAILY, (Reported) Omeprazole (Omeprazole), 20 MG PO DAILY, (Reported) Polyethylene Glycol 3350* (Miralax*), 17 GM ORAL DAILY, (Reported) Sennosides (Senna), 17.2 MG PO BEDTIME, (Reported) Scheduled PRN Hydrocodone Bit/Acetaminophen 5-325* ([place] 5-325 Tablet*), 1 TAB ORAL Q4H PRN for For Pain, (Reported) Magnesium Hydroxide* (Milk Of Magnesia*), 30 ML ORAL DAILY PRN for Constipation, (Reported) Menthol/Zinc Oxide (Dermaseptin Ointment), 1 APPLIC TP DAILY PRN for MAINTENANCE, (Reported) Na Phos,M-B/Na Phos,Di-Ba (Fleet Enema), 133 ML RC DAILY PRN for Constipation, (Reported) Nitroglycerin (Nitroglycerin), 0.4 MG SL EVERY 5 MINS PRN for CHEST PAIN, (Reported) Ondansetron (Zofran), 4 MG ORAL Q4HR PRN for Nausea & Vomiting, (Reported) Oxycodone/Acetaminophen 5-325* (Percocet 5-325 Mg Tablet*), 1 TAB ORAL Q4H PRN for For Pain, (Reported) Promethazine Hcl (Promethazine Hcl*), 10 ML ORAL Q6H PRN for For Cough, (Reported) Simethicone (Simethicone), 80 MG PO Q6HR PRN for GAS, (Reported) Miscellaneous Medications Vitamin A & D (Vitamin A & D Ointment), 1 APPLIC TOP, (Reported) Discontinued Medications Acetaminophen* (Acetaminophen 325MG Tablet*), 325 MG ORAL Q4H PRN for For Pain, (Reported) Discontinued Reason: Therapy completed Amlodipine Besylate* (Amlodipine Besylate*), 5 MG ORAL DAILY, (Reported) Discontinued Reason: Therapy completed Aspirin Ec* (Aspirin Ec*), 81 MG ORAL DAILY, (Reported) Discontinued Reason: Therapy completed Bisacodyl* (Dulcolax*), 10 MG RECTAL for Constipation, (Reported) Discontinued Reason: Therapy completed Cephalexin* (Keflex*), 500 MG ORAL TID Discontinued Reason: Therapy completed Isosorbide Mononitrate (Isosorbide Mononitrate Er), 30 MG PO DAILY, (Reported) Discontinued Reason: Therapy completed Melatonin (Melatonin), 3 MG PO, (Reported) Discontinued Reason: Therapy completed Omeprazole (Omeprazole), 20 MG ORAL DAILY, (Reported) Discontinued Reason: Prescription changed Pantoprazole* (Pantoprazole*), 40 MG ORAL DAILY, (Reported) Discontinued Reason: Therapy completed Rivaroxaban (Xarelto*), 15 MG ORAL DAILY, (Reported) Discontinued Reason: Therapy completed Tramadol HCl (Tramadol HCl ER), 50 MG ORAL TID PRN for Pain Scale (6-10), (Reported) Discontinued Reason: Therapy completed Patient History Limited by: age, medical condition History Provided By: Patient, Medical Record, PMD Healthcare decision maker Resuscitation status Advanced Directive on File No Past Medical/Surgical History Past Medical/Surgical History: (1) Toxic metabolic encephalopathy (2) ACS (acute coronary syndrome) (3) Low back pain (4) UTI (urinary tract infection) (5) Atrial fibrillation with RVR Review of Systems Review of Symptoms General ROS: no weight loss or fever Psychological ROS: no depression or mood changes, no memory loss Ophthalmic ROS: no visual changes or eye irritation ENT ROS: no nasal congestion, hearing loss, dizziness Allergy and Immunology ROS: no allergic symptoms or urticaria Hematological and Lymphatic ROS: no swollen glands, unusual bleeding or bruising Endocrine ROS: no polyuria, polydipsia, weight changes, temperature intolerance Respiratory ROS: no cough, shortness of breath, or wheezing Cardiovascular ROS: no chest pain or dyspnea on exertion Gastrointestinal ROS: denies abdominal pain, bright red blood in stool. Musculoskeletal ROS: no myalgias or arthralgias Neurological ROS: no TIA or stroke symptoms Dermatological ROS: no new or changing skin lesions, rashes or pruritis limited given medical condition Physical Exam Physical Exam General appearance: no distress, appears stated age Head: Normocephalic, without obvious abnormality, atraumatic Eyes: conjunctivae/corneas clear. PERRL, EOM's intact. Fundi benign Throat: Lips, mucosa, and tongue normal. Teeth and gums normal Neck: supple, symmetrical, trachea midline, no adenopathy, thyroid: not enlarged, symmetric, no tenderness/mass/nodules, no carotid bruit and no JVD Lungs: clear to auscultation bilaterally Heart: regular rate and rhythm, S1, S2 normal, no murmur, click, rub or gallop Abdomen: soft, non-tender. Bowel sounds normal. No masses, no organomegaly Extremities: extremities normal, atraumatic, no cyanosis or edema Pulses: 2+ and symmetric Skin: Skin see below Neurologic: Grossly normal Last 24 Hour Vital Signs Date Time Temp Pulse Resp B/P (MAP) Pulse Ox O2 Delivery O2 Flow Rate FiO2 04/19/20 12:00 79 04/19/20 11:53 96.7 87 18 129/78 (95) 100 04/19/20 09:43 80 127/65 04/19/20 09:00 Room Air 04/19/20 08:00 97.7 80 19 127/65 (85) 100 04/19/20 08:00 79 04/19/20 04:00 98.6 75 18 120/66 (84) 98 04/19/20 04:00 71 04/19/20 00:00 98.8 73 18 119/78 (92) 98 04/19/20 00:00 72 04/18/20 21:39 75 121/70 04/18/20 21:00 Room Air 04/18/20 20:00 98.3 75 18 108/68 (81) 98 04/18/20 20:00 72 04/18/20 17:16 72 04/18/20 17:00 98.2 76 20 126/81 (96) 99 Intake and Output 04/18/20 04/19/20 19:00 07:00 Intake Total 155 ml 1040 ml Balance 155 ml 1040 ml Intake Oral 0 ml 40 ml IV Total 155 ml 1000 ml Laboratory Tests Test 04/19/20 05:10 White Blood Count 8.2 K/UL (4.8-10.8) Red Blood Count 3.35 M/UL (4.20-5.40) L Hemoglobin 11.9 G/DL (12.0-16.0) L Hematocrit 37.9 % (37.0-47.0) Mean Corpuscular Volume 113 FL (80-99) H Mean Corpuscular Hemoglobin 35.6 PG (27.0-31.0) H Mean Corpuscular Hemoglobin Concent 31.4 G/DL (32.0-36.0) L Red Cell Distribution Width 18.9 % (11.6-14.8) H Platelet Count 297 K/UL (150-450) Mean Platelet Volume 6.5 FL (6.5-10.1) Neutrophils (%) (Auto) % (45.0-75.0) Lymphocytes (%) (Auto) % (20.0-45.0) Monocytes (%) (Auto) % (1.0-10.0) Eosinophils (%) (Auto) % (0.0-3.0) Basophils (%) (Auto) % (0.0-2.0) Differential Total Cells Counted 100 Neutrophils % (Manual) 79 % (45-75) H Lymphocytes % (Manual) 14 % (20-45) L Monocytes % (Manual) 7 % (1-10) Eosinophils % (Manual) 0 % (0-3) Basophils % (Manual) 0 % (0-2) Band Neutrophils 0 % (0-8) Platelet Estimate Adequate Platelet Morphology Normal Hypochromasia 1+ Anisocytosis 1+ Macrocytosis 1+ Sodium Level 142 MMOL/L (136-145) Potassium Level 3.8 MMOL/L (3.5-5.1) Chloride Level 108 MMOL/L (98-107) H Carbon Dioxide Level 25 MMOL/L (21-32) Anion Gap 9 mmol/L (5-15) Blood Urea Nitrogen 10 mg/dL (7-18) Creatinine 0.9 MG/DL (0.55-1.30) Estimat Glomerular Filtration Rate > 60 mL/min (>60) Glucose Level 88 MG/DL (74-106) Hemoglobin A1c 5.5 % (4.3-6.0) Calcium Level 9.1 MG/DL (8.5-10.1) Height (Feet): 5 Height (Inches): 4.00 Weight (Pounds): 120 Medications Current Medications Medications (Trade) Dose Ordered Sig/Chad Route PRN Reason Start Time Stop Time Status Last Admin Dose Admin Acetaminophen (Tylenol) 650 mg Q4H PRN ORAL Mild Pain (Pain Scale 1-3) 04/18/20 15:15 05/18/20 15:14 Acetaminophen (Tylenol) 650 mg Q4H PRN ORAL Temp >100.5 04/18/20 15:15 05/18/20 15:14 Al Hydroxide/Mg Hydroxide (Mylanta II) 30 ml Q6H PRN ORAL dyspepsia 04/18/20 15:15 05/18/20 15:14 Albuterol/ Ipratropium (Albuterol/ Ipratropium) 3 ml Q4H PRN HHN Shortness of Breath 04/18/20 15:15 04/23/20 15:14 Apixaban (Eliquis) 2.5 mg BID ORAL 04/18/20 18:00 07/17/20 17:59 04/19/20 09:44 Ceftriaxone Sodium 1 gm/ Sodium Chloride 55 ml @ 110 mls/hr DAILY IVPB 04/18/20 18:00 04/25/20 17:59 04/19/20 09:43 Dextrose (Dextrose 50%) 25 ml Q30M PRN IV Hypoglycemia 04/18/20 15:15 07/17/20 15:14 Dextrose (Dextrose 50%) 50 ml Q30M PRN IV Hypoglycemia 04/18/20 15:15 07/17/20 15:14 Dextrose/ Electrolytes 1,000 ml @ 50 mls/hr Q20H IV 04/19/20 11:00 05/19/20 10:59 04/19/20 11:33 Docusate Sodium (Colace) 100 mg EVERY 12 HOURS ORAL 04/18/20 21:00 05/18/20 20:59 04/19/20 09:43 Folic Acid (Folate) 1 mg DAILY ORAL 04/19/20 09:00 05/19/20 08:59 04/19/20 09:43 Metoprolol Tartrate (Lopressor) 5 mg Q5M PRN IVP afib with RVR HR > 120 up 04/18/20 15:15 07/17/20 15:14 Metoprolol Tartrate (Lopressor) 50 mg Q12HR ORAL 04/18/20 21:00 07/17/20 20:59 04/19/20 09:43 Nitroglycerin (Ntg) 0.4 mg Q5M PRN SL Prn Chest Pain 04/18/20 15:15 05/18/20 15:14 Assessment/Plan Problem List: (1) Decubitus skin ulcer Assessment & Plan: [address] [place] [address] facility presented on admission with multiple skin concerns. RIGHT BUTTOCK- STAGE IV PRESSURE ULCER MEASURES 3.0X2.0X0.8CM. WOUND BED WITH 40% YELLOW SLOUGH. NO ODOR. ISABELLA-WOUND SKIN WITH NOTED SCARRING. INTACT AT THIS TIME. RECOMMEND-CLEAN WITH SALINE, PAT DRY, APPLY THERAHONEY AND COVER WITH OPTIFOAM DRESSING. REPLACE DAILY. LEFT BUTTOCK-STAGE II PRESSURE ULCER MEASURES 1.0X1.5X0.2CM. WOUND BED PINK. ISABELLA-WOUND SKIN WITH NOTED SCARRING WELL. INTACT AT THIS TIME. RECOMMEND-CLEAN WITH SALINE, PAT DRY, APPLY TRIAD AND COVER WITH OPTIFOAM DRESSING. REPLACE EVERY OTHER DAY.. LEFT LATERAL HEEL- DARK BROWN ESCHAR MEASURES 2.0X1.0CM WITH DTI SURROUNDING IT. DTI MEASURES 2.5X2.0CM AREA DARK PURPLE IN COLOR AND BOGGY TO TOUCH. RECOMMEND- APPLY CAVILON SKIN PROTECTOR AND COVER WITH OPTIFOAM DRESSING. REPLACE EVERY 3 DAYS. RIGHT HEEL- DTI MEASURES 3.0X1.5CM AREA DARK PURPLE IN COLOR. RECOMMEND- APPLY CAVILON SKIN PROTECTOR AND COVER WITH OPTIFOAM DRESSING. REPLACE EVERY 3 DAYS. Turn Q2H OFF LOAD PRESSURE WITH PILLOWS AIR LOSS MATTRESS NUTRITIONAL OPTIMIZATION ICD Codes: L89.90 - Pressure ulcer of unspecified site, unspecified stage SNOMED: 735783408 (2) Malnutrition Assessment & Plan: nutrition required for wound healing bmi 20 low alb diet as tolerated bowel regimen labs noted will follow with recs ICD Codes: E46 - Unspecified protein-calorie malnutrition SNOMED: 49416919 (3) UTI (urinary tract infection) ICD Codes: N39.0 - Urinary tract infection, site not specified SNOMED: 34255954 (4) Atrial fibrillation with RVR ICD Codes: I48.91 - Unspecified atrial fibrillation SNOMED: 553453197964504 (5) Low back pain ICD Codes: M54.5 - Low back pain SNOMED: 012161321 (6) ACS (acute coronary syndrome) ICD Codes: I24.9 - Acute ischemic heart disease, unspecified SNOMED: 364323753 (7) Toxic metabolic encephalopathy ICD Codes: G92 - Toxic encephalopathy SNOMED: 179500341 Refugio Maria Apr 19, 2020 16:25
--- NOTE | 2020-04-19 16:28 | Cardiology Report ---
APPROVED REPORT EKG Measurement Heart [id number] <Conclusion> Cannot determine the underlying rhythm due to the baseline artifact but most likely sinus rhythm. ST & T wave abnormality, consider inferior ischemia ST & T wave abnormality, consider anterolateral ischemia Abnormal ECG
--- NOTE | 2020-04-19 16:30 | Consultation ---
DATE OF CONSULTATION: 04/19/2020 PULMONARY CONSULTATION CONSULTING PHYSICIAN: Randy Meyers MD HISTORY OF PRESENT ILLNESS: This is an 80-year-old female who was admitted to the hospital for shortness of breath. The patient presented with rapid AFib and RVR. [facility] was [facility] with tachycardia and weakness. She also reported shortness of breath. The patient was given IV Cardizem and was admitted to telemetry unit. Currently, she is saturating well on room air at 98% and her heart rate is now 80. PAST HISTORY: Notable for hypertension, carotid artery aneurysm, history of AFib, and [facility] resident. CURRENT MEDICATIONS: Include Tylenol, Eliquis, Rocephin, Colace, DuoNebs, folic acid, and metoprolol. REVIEW OF SYSTEMS: Denies any headaches, hematemesis, melena, hematochezia, night sweats, or weight loss. PHYSICAL EXAMINATION: GENERAL: Reveals an 80-year-old female. VITAL SIGNS: Heart rate 84, respirations 18, blood pressure 120/70, T-max 99.1. HEENT: Unremarkable. LUNGS: Clear breath sounds bilaterally. ABDOMEN: Soft. EXTREMITIES: There is no edema. NEUROLOGIC: Nonfocal. LABORATORY DATA: Lab testing shows normal CBC and BMP. IMAGING STUDIES: A chest x-ray was obtained, which showed clear lung zheng bilaterally. IMPRESSION: 1. AFib with RVR. 2. Mild dyspnea. 3. Hypertension. DISCUSSION: The patient is doing well from respiratory standpoint. We will order some more oxygen as needed. Predominant care by Cardiology for rate control. 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 Randy Meyers M.D. DR: Clara JOB#: [id number] CC:
--- NOTE | 2020-04-19 19:08 | Diagnostic Imaging Report ---
EXAM: XR Chest, 1 View CLINICAL HISTORY: WEAK TECHNIQUE: Frontal view of the chest. COMPARISON: Not available at the time of dictation. FINDINGS: Lungs: No acute cardiopulmonary disease. Pleural space: Unremarkable. No pneumothorax. Heart: Cardiomegaly. Mediastinum: Unremarkable. Bones/joints: No acute abnormality IMPRESSION: 1. No acute cardiopulmonary disease. 2. Cardiomegaly.
[2020-04-19 20:00] VITALS: BP 108/60
[2020-04-20] VITALS: BP 96/62
[2020-04-20] MEDS: D5 1/2NS w/KCl 20mEq 1,000 ML IV SCH ×2 (02:44→16:05)
[2020-04-20 04:00] VITALS: BP 130/70
[2020-04-20 08:00] VITALS: BP 111/76
[2020-04-20] MEDS: Docusate 100mg cap ORAL SCH ×2 (09:00→20:25)
[2020-04-20 09:35] LABS: HEMATOCRIT 38.5 % (37.0-47.0); MEAN CORPUSCULAR VOLUME 114 FL (80-99); PLATELET COUNT 315 K/UL (150-450); RED BLOOD COUNT 3.38 M/UL (4.20-5.40); RED CELL DISTRIBUTION WIDTH 18.9 % (11.6-14.8); WHITE BLOOD COUNT 7.8 K/UL (4.8-10.8)
[2020-04-20] MEDS: Metoprolol Tartrate 50mg tab ORAL SCH ×2 (09:38→20:27)
[2020-04-20] MEDS: cefTRIAXone 1 GM in NS 55 ML IVPB SCH (09:38)
[2020-04-20] MEDS: Eliquis 2.5mg tablet ORAL SCH ×2 (09:38→18:26)
--- NOTE | 2020-04-20 09:41 | General Progress Note ---
Subjective Constitutional: Denies: no symptoms, chills, diaphoresis, fever, malaise, weakness, other HEENT: Denies: no symptoms, eye pain, blurred vision, tearing, double vision, ear pain, ear discharge, nose pain, nose congestion, throat pain, throat swelling, mouth pain, mouth swelling, other Cardiovascular: Denies: no symptoms, chest pain, edema, irregular heart rate, lightheadedness, palpitations, syncope, other Respiratory: Denies: no symptoms, cough, orthopnea, shortness of breath, SOB with excertion, SOB at rest, sputum, stridor, wheezing, other Gastrointestinal/Abdominal: Denies: no symptoms, abdomen distended, abdominal pain, black stools, tarry stools, blood in stool, constipated, diarrhea, difficulty swallowing, nausea, poor appetite, poor fluid intake, rectal bleeding, vomiting, other Genitourinary: Denies: no symptoms, burning, discharge, frequency, flank pain, hematuria, incontinence, pain, urgency, other Neurologic/Psychiatric: Denies: no symptoms, anxiety, depressed, emotional problems, headache, numbness, paresthesia, pre-existing deficit, seizure, tingling, tremors, weakness, other Endocrine: Denies: no symptoms, excessive sweating, flushing, intolerance to cold, intolerance to heat, increased hunger, increased thirst, increased urine, unexplained weight gain, unexplained weight loss, other Hematologic/Lymphatic: Denies: no symptoms, anemia, easy bleeding, easy bruising, other Allergies: Coded Allergies: ADHESIVE TAPE (Unverified Allergy, Unknown, 12/25/16) PENICILLINS (Unverified Allergy, Unknown, 12/25/16) Uncoded Allergies: PENICILLIN (Allergy, Unknown, 12/25/16) Subjective No acute events overnight. Patient resting comfortably in bed with no complaints this morning noted by nurse that patient has been poor oral intake and does not eat much food or drink fluids. Even with family at bedside yesterday afternoon she refused to eat food here. I discussed with her this morning about eating she says she will try further and does not want to have any feeding tube placed. Objective Last 24 Hour Vital Signs Date Time Temp Pulse Resp B/P (MAP) Pulse Ox O2 Delivery O2 Flow Rate FiO2 04/20/20 08:00 98.2 72 18 111/76 (88) 96 04/20/20 04:00 97.5 79 18 130/70 (90) 100 04/20/20 04:00 67 04/20/20 00:00 63 04/20/20 00:00 97.7 72 18 96/62 (73) 99 04/19/20 21:37 72 108/60 04/19/20 21:00 Room Air 04/19/20 20:00 75 04/19/20 20:00 97.0 72 18 108/60 (76) 98 04/19/20 16:00 98.1 76 20 116/74 (88) 99 04/19/20 16:00 77 04/19/20 12:00 79 04/19/20 11:53 96.7 87 18 129/78 (95) 100 04/19/20 09:43 80 127/65 Intake and Output 04/19/20 04/20/20 19:00 07:00 Intake Total 195 ml 375 ml Balance 195 ml 375 ml Intake Oral 120 ml IV Total 75 ml 375 ml # Voids 1 # Bowel Movements 1 Laboratory Tests 04/20/20 08:10: White Blood Count [Pending], Red Blood Count [Pending], Hemoglobin [Pending], Hematocrit [Pending], Mean Corpuscular Volume [Pending], Mean Corpuscular Hemoglobin [Pending], Mean Corpuscular Hemoglobin Concent [Pending], Red Cell Distribution Width [Pending], Platelet Count [Pending], Mean Platelet Volume [Pending], Neutrophils (%) (Auto) [Pending], Lymphocytes (%) (Auto) [Pending], Monocytes (%) (Auto) [Pending], Eosinophils (%) (Auto) [Pending], Basophils (%) (Auto) [Pending], Sodium Level [Pending], Potassium Level [Pending], Chloride Level [Pending], Carbon Dioxide Level [Pending], Blood Urea Nitrogen [Pending], Creatinine [Pending], Estimat Glomerular Filtration Rate [Pending], Glucose Level [Pending], Calcium Level [Pending], Phosphorus Level [Pending], Magnesium Level [Pending] Height (Feet): 5 Height (Inches): 4.00 Weight (Pounds): 120 General Appearance: no apparent distress, alert, alert oriented x3 EENT: PERRL/EOMI, normal ENT inspection Neck: normal alignment, supple Cardiovascular: normal rate, regular rhythm, no JVD Respiratory/Chest: lungs clear, normal breath sounds Abdomen: normal bowel sounds, non tender, soft Extremities: other - Bedbound Edema: no edema noted Arm (L), no edema noted Arm (R), no edema noted Leg (L), no edema noted Leg (R), no edema noted Pedal (L), no edema noted Pedal (R), no edema noted Generalized Neurologic: access clerk II-XII grossly normal, alert, oriented x 3 Skin: normal pigmentation, warm/dry Assessment/Plan Assessment/Plan: Mrs. Tobar is an 80-year-old female past medical history of A. fib, hypertension, carotid artery aneurysm is presenting from SNF for generalized weakness. A: #Atrial fibrillation with rapid ventricular heart rate 2/2 possible infectious etiology #Failure to thrive #UTI #Mild pulmonary hypertension possibly class I #Essential hypertension #Carotid artery aneurysm #Poor oral intake #Hypokalemia P: Labs still pending today, will follow up later when uploaded Currently hemodynamically stable Saturating well on room air, O2 saturations greater than 92%, monitor for increased O2 support Continue metoprolol 50 mg twice daily On Eliquis Echo 55%, no regional wall motion abnormalities, RSVP 43 Chest x-ray with no acute current cardiopulmonary processes, shows cardiomegaly Urine culture with gram-negative rods pending speciation Continue Rocephin for now tailored antibiotics to cultures Follow-up blood cultures MRSA screen negative IVF Replace folic acid deficiency Nutritional consult Patient does not want to have PEG placement, however discussed with her at length that she will need to show that she can eat on her own to provide adequate nutrition, she agrees and will try to increase her oral intake Consult Dr. Calvo, cardiology, recs appreciated Consult Dr. Salgado, nephrology, recs appreciated CM Code: DO NOT INTUBATE GI: None DVT prophylaxis: Eliquis Diet: Cardiac Dispo: Pending improvement of oral intake, discharge back to SNF Time spent on this encounter was 41 minutes which included 22 minutes of counseling and care coordination. I discussed with the nurse at bedside. Time of note may not reflect time patient was seen. Syd Yepez D.O Apr 20, 2020 09:41
[2020-04-20 10:27] LABS: ANION GAP 7 mmol/L (5-15); BLOOD UREA NITROGEN 7 mg/dL (7-18); CALCIUM 8.4 MG/DL (8.5-10.1); CARBON DIOXIDE 25 MMOL/L (21-32); CHLORIDE 107 MMOL/L (98-107); CREATININE 0.8 MG/DL (0.55-1.30); POTASSIUM 3.3 MMOL/L (3.5-5.1); SODIUM 139 MMOL/L (136-145)
[2020-04-20] MEDS ORDERED: Phospha 250 Neutral tab ORAL SCH (10:45)
[2020-04-20 12:00] VITALS: BP 101/57
--- NOTE | 2020-04-20 12:07 | Pulmonology Progress Note ---
Subjective ROS Limited/Unobtainable: No Interval Events: None new Constitutional: Reports: no symptoms HEENT: Repors: no symptoms Respiratory: Reports: no symptoms Cardiovascular: Reports: no symptoms Gastrointestinal/Abdominal: Reports: no symptoms Allergies: Coded Allergies: ADHESIVE TAPE (Unverified Allergy, Unknown, 12/25/16) PENICILLINS (Unverified Allergy, Unknown, 12/25/16) Uncoded Allergies: PENICILLIN (Allergy, Unknown, 12/25/16) Objective Last 24 Hour Vital Signs Date Time Temp Pulse Resp B/P (MAP) Pulse Ox O2 Delivery O2 Flow Rate FiO2 04/20/20 09:38 72 111/76 04/20/20 09:00 Room Air 04/20/20 08:00 98.2 72 18 111/76 (88) 96 04/20/20 08:00 108 04/20/20 04:00 97.5 79 18 130/70 (90) 100 04/20/20 04:00 67 04/20/20 00:00 63 04/20/20 00:00 97.7 72 18 96/62 (73) 99 04/19/20 21:37 72 108/60 04/19/20 21:00 Room Air 04/19/20 20:00 75 04/19/20 20:00 97.0 72 18 108/60 (76) 98 04/19/20 16:00 98.1 76 20 116/74 (88) 99 04/19/20 16:00 77 Intake and Output 04/19/20 04/20/20 19:00 07:00 Intake Total 195 ml 375 ml Balance 195 ml 375 ml Intake Oral 120 ml IV Total 75 ml 375 ml # Voids 1 # Bowel Movements 1 General Appearance: no acute distress HEENT: normocephalic Respiratory: chest wall non-tender, lungs clear Cardiovascular: normal peripheral pulses Abdomen: normal bowel sounds Microbiology Date/Time Source Procedure Growth Status 04/18/20 13:48 Rectum VRE Culture - Final NO VANCOMYCIN RESISTANT ENTEROCOCCUS ... Complete 04/18/20 13:48 Rectum - Final NO CARBAPENEM-RESISTANT ENTEROBACTERI... Complete 04/18/20 13:48 Urine,Clean Catch Urine Culture - Preliminary Gram Negative Arnol Resulted 04/18/20 13:48 Nasal Nares MRSA Culture - Final NO METHICILLIN RESISTANT STAPH AUREUS... Complete Laboratory Tests 04/20/20 08:10: White Blood Count 7.8, Red Blood Count 3.38L, Hemoglobin 12.0, Hematocrit 38.5, Mean Corpuscular Volume 114H, Mean Corpuscular Hemoglobin 35.5H, Mean Corpuscular Hemoglobin Concent 31.2L, Red Cell Distribution Width 18.9H, Platelet Count 315, Mean Platelet Volume 6.9, Neutrophils (%) (Auto) , Lymphocytes (%) (Auto) , Monocytes (%) (Auto) , Eosinophils (%) (Auto) , Basophils (%) (Auto) , Differential Total Cells Counted 100, Neutrophils % (Manual) 75, Lymphocytes % (Manual) 18L, Monocytes % (Manual) 5, Eosinophils % (Manual) 2, Basophils % (Manual) 0, Band Neutrophils 0, Platelet Estimate Adequate, Platelet Morphology Normal, Hypochromasia 1+, Anisocytosis 1+, Macrocytosis 1+, Sodium Level 139, Potassium Level 3.3L, Chloride Level 107, Carbon Dioxide Level 25, Anion Gap 7, Blood Urea Nitrogen 7, Creatinine 0.8, Estimat Glomerular Filtration Rate > 60, Glucose Level 95, Calcium Level 8.4L, Phosphorus Level 2.0L, Magnesium Level 1.8 Current Medications Medications (Trade) Dose Ordered Sig/Chad Route PRN Reason Start Time Stop Time Status Last Admin Dose Admin Acetaminophen (Tylenol) 650 mg Q4H PRN ORAL Mild Pain (Pain Scale 1-3) 04/18/20 15:15 05/18/20 15:14 Acetaminophen (Tylenol) 650 mg Q4H PRN ORAL Temp >100.5 04/18/20 15:15 05/18/20 15:14 Al Hydroxide/Mg Hydroxide (Mylanta II) 30 ml Q6H PRN ORAL dyspepsia 04/18/20 15:15 05/18/20 15:14 Albuterol/ Ipratropium (Albuterol/ Ipratropium) 3 ml Q4H PRN HHN Shortness of Breath 04/18/20 15:15 04/23/20 15:14 Apixaban (Eliquis) 2.5 mg BID ORAL 04/18/20 18:00 07/17/20 17:59 04/20/20 09:38 Ceftriaxone Sodium 1 gm/ Sodium Chloride 55 ml @ 110 mls/hr DAILY IVPB 04/18/20 18:00 04/25/20 17:59 04/20/20 09:38 Dextrose (Dextrose 50%) 25 ml Q30M PRN IV Hypoglycemia 04/18/20 15:15 07/17/20 15:14 Dextrose (Dextrose 50%) 50 ml Q30M PRN IV Hypoglycemia 04/18/20 15:15 07/17/20 15:14 Dextrose/ Electrolytes 1,000 ml @ 75 mls/hr [id number] IV 04/19/20 11:00 05/19/20 10:59 04/20/20 02:44 Docusate Sodium (Colace) 100 mg EVERY 12 HOURS ORAL 04/18/20 21:00 05/18/20 20:59 04/19/20 21:36 Folic Acid (Folate) 1 mg DAILY ORAL 04/19/20 09:00 05/19/20 08:59 04/20/20 09:37 Metoprolol Tartrate (Lopressor) 5 mg Q5M PRN IVP afib with RVR HR > 120 up 04/18/20 15:15 07/17/20 15:14 Metoprolol Tartrate (Lopressor) 50 mg Q12HR ORAL 04/18/20 21:00 07/17/20 20:59 04/20/20 09:38 Nitroglycerin (Ntg) 0.4 mg Q5M PRN SL Prn Chest Pain 04/18/20 15:15 05/18/20 15:14 Phosphorus (Phospha 250 Neutral) 500 mg ONCE ORAL 04/20/20 10:45 04/20/20 12:30 04/20/20 11:59 Potassium Chloride (K-Dur) 40 meq ONCE ORAL 04/20/20 10:45 04/20/20 12:30 04/20/20 11:59 Assessment/Plan Assessment/Plan IMPRESSION: 1. AFib with RVR. 2. Mild dyspnea. 3. Hypertension. DISCUSSION: The patient is doing well from respiratory standpoint. Saturating well on RA Predominant care by Cardiology for rate control. 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 Vitaliy Pichardo Omar Syed MD Apr 20, 2020 12:07
--- NOTE | 2020-04-20 12:56 | Surgery Progress Note ---
Surgery Progress Note Subjective Additional Comments labs noted comfortable no complaints no n/v Objective Last 24 Hour Vital Signs Date Time Temp Pulse Resp B/P (MAP) Pulse Ox O2 Delivery O2 Flow Rate FiO2 04/20/20 09:38 72 111/76 04/20/20 09:00 Room Air 04/20/20 08:00 98.2 72 18 111/76 (88) 96 04/20/20 08:00 108 04/20/20 04:00 97.5 79 18 130/70 (90) 100 04/20/20 04:00 67 04/20/20 00:00 63 04/20/20 00:00 97.7 72 18 96/62 (73) 99 04/19/20 21:37 72 108/60 04/19/20 21:00 Room Air 04/19/20 20:00 75 04/19/20 20:00 97.0 72 18 108/60 (76) 98 04/19/20 16:00 98.1 76 20 116/74 (88) 99 04/19/20 16:00 77 I&O Intake and Output 04/19/20 04/20/20 19:00 07:00 Intake Total 195 ml 375 ml Balance 195 ml 375 ml Intake Oral 120 ml IV Total 75 ml 375 ml # Voids 1 # Bowel Movements 1 Dressing: saturated Cardiovascular: RSR Respiratory: decreased breath sounds Abdomen: soft, non-tender, present bowel sounds Extremities: no tenderness, no cyanosis Laboratory Tests Test 04/20/20 08:10 White Blood Count 7.8 K/UL (4.8-10.8) Red Blood Count 3.38 M/UL (4.20-5.40) L Hemoglobin 12.0 G/DL (12.0-16.0) Hematocrit 38.5 % (37.0-47.0) Mean Corpuscular Volume 114 FL (80-99) H Mean Corpuscular Hemoglobin 35.5 PG (27.0-31.0) H Mean Corpuscular Hemoglobin Concent 31.2 G/DL (32.0-36.0) L Red Cell Distribution Width 18.9 % (11.6-14.8) H Platelet Count 315 K/UL (150-450) Mean Platelet Volume 6.9 FL (6.5-10.1) Neutrophils (%) (Auto) % (45.0-75.0) Lymphocytes (%) (Auto) % (20.0-45.0) Monocytes (%) (Auto) % (1.0-10.0) Eosinophils (%) (Auto) % (0.0-3.0) Basophils (%) (Auto) % (0.0-2.0) Differential Total Cells Counted 100 Neutrophils % (Manual) 75 % (45-75) Lymphocytes % (Manual) 18 % (20-45) L Monocytes % (Manual) 5 % (1-10) Eosinophils % (Manual) 2 % (0-3) Basophils % (Manual) 0 % (0-2) Band Neutrophils 0 % (0-8) Platelet Estimate Adequate Platelet Morphology Normal Hypochromasia 1+ Anisocytosis 1+ Macrocytosis 1+ Sodium Level 139 MMOL/L (136-145) Potassium Level 3.3 MMOL/L (3.5-5.1) L Chloride Level 107 MMOL/L (98-107) Carbon Dioxide Level 25 MMOL/L (21-32) Anion Gap 7 mmol/L (5-15) Blood Urea Nitrogen 7 mg/dL (7-18) Creatinine 0.8 MG/DL (0.55-1.30) Estimat Glomerular Filtration Rate > 60 mL/min (>60) Glucose Level 95 MG/DL (74-106) Calcium Level 8.4 MG/DL (8.5-10.1) L Phosphorus Level 2.0 MG/DL (2.5-4.9) L Magnesium Level 1.8 MG/DL (1.8-2.4) Plan Problems: (1) Decubitus skin ulcer Assessment & Plan: [address] [place] [address] facility presented on admission with multiple skin concerns. RIGHT BUTTOCK- STAGE IV PRESSURE ULCER MEASURES 3.0X2.0X0.8CM. WOUND BED WITH 40% YELLOW SLOUGH. NO ODOR. ISABELLA-WOUND SKIN WITH NOTED SCARRING. INTACT AT THIS TIME. RECOMMEND-CLEAN WITH SALINE, PAT DRY, APPLY THERAHONEY AND COVER WITH OPTIFOAM DRESSING. REPLACE DAILY. LEFT BUTTOCK-STAGE II PRESSURE ULCER MEASURES 1.0X1.5X0.2CM. WOUND BED PINK. ISABELLA-WOUND SKIN WITH NOTED SCARRING WELL. INTACT AT THIS TIME. RECOMMEND-CLEAN WITH SALINE, PAT DRY, APPLY TRIAD AND COVER WITH OPTIFOAM DRESSING. REPLACE EVERY OTHER DAY.. LEFT LATERAL HEEL- DARK BROWN ESCHAR MEASURES 2.0X1.0CM WITH DTI SURROUNDING IT. DTI MEASURES 2.5X2.0CM AREA DARK PURPLE IN COLOR AND BOGGY TO TOUCH. RECOMMEND- APPLY CAVILON SKIN PROTECTOR AND COVER WITH OPTIFOAM DRESSING. REP LACE EVERY 3 DAYS. RIGHT HEEL- DTI MEASURES 3.0X1.5CM AREA DARK PURPLE IN COLOR. RECOMMEND- APPLY CAVILON SKIN PROTECTOR AND COVER WITH OPTIFOAM DRESSING. REPLACE EVERY 3 DAYS. Turn Q2H OFF LOAD PRESSURE WITH PILLOWS AIR LOSS MATTRESS NUTRITIONAL OPTIMIZATION (2) Malnutrition Assessment & Plan: nutrition required for wound healing bmi 20 low alb diet as tolerated bowel regimen labs noted will follow with recs DAILY ESTIMATED NEEDS: Needs based on Wound, underweight/ 46.5kg 30-35 kcals/kg [id number] total kcals 1.25-1.5 g protein/kg 58-70 g total protein 25-30 mL/kg [id number] total fluid mLs NUTRITION DIAGNOSIS: * Increased kcal/prot needs R/T wound healing, underweight status as evidenced by admitted w/ multiple wounds, including stage 4 R buttock wound, stage 2 L buttock wound, DTI @ L lateral heel and R heel, pt @ 8% IBW w/ low BMI per guidelines, w/ poor and variable intake noted. * Swallowing difficulty R/T dysphagia as evidenced by pt on pureed texture KENO MANAGER. CURRENT DIET:CARDIAC PO DIET RECOMMENDATIONS: Liberalized regular/ texture per SLIP SEAT COVERER ADDITIONAL RECOMMENDATIONS: * Calibrated bedscale wt * Ensure Enlive TID w/ meals * SLIP SEAT COVERER eval for appropriate texture and liquid consistency -> pt on pureed texture KENO MANAGER, downgraded to pureed for now * Wound healing: MVI w/ min x1, Vit C 500mg BID, ZnSO4 220mg QD x 10days Saurav BID added to tray (3) UTI (urinary tract infection) (4) Atrial fibrillation with RVR (5) Low back pain (6) ACS (acute coronary syndrome) (7) Toxic metabolic encephalopathy Refugio Maria Apr 20, 2020 12:56
[2020-04-20 16:00] VITALS: BP 119/76
[2020-04-20] MEDS: Ascorbic Acid 500mg tab ORAL SCH (18:25)
--- NOTE | 2020-04-20 18:30 | Nephrology Progress Note ---
Assessment/Plan Plan #afib with RVR #UTI #Hypokalemia #Hypophos #failure to thrive #HTN #anemia - start drabaniolol - IVF - replete lytes - cardiology eval - ceftriaxone for UTI - meop 50 BID - apixaban 2.5mg BID - monitor lytes - monitor for bleeding time spent 35min Subjective ROS Limited/Unobtainable: No Constitutional: Reports: weakness Genitourinary: Denies: no symptoms, burning, discharge, frequency, flank pain, hematuria, incontinence, pain, urgency, other Neurologic/Psychiatric: Denies: no symptoms, anxiety, depressed, emotional problems, headache, numbness, paresthesia, pre-existing deficit, seizure, tingling, tremors, weakness, other Subjective appitite poor refusing to eat will start dranabinol Objective Objective Last 24 Hour Vital Signs Date Time Temp Pulse Resp B/P (MAP) Pulse Ox O2 Delivery O2 Flow Rate FiO2 04/20/20 16:00 97.7 83 18 119/76 (90) 99 04/20/20 12:00 68 04/20/20 12:00 98.2 78 18 101/57 (72) 98 04/20/20 09:38 72 111/76 04/20/20 09:00 Room Air 04/20/20 08:00 98.2 72 18 111/76 (88) 96 04/20/20 08:00 108 04/20/20 04:00 97.5 79 18 130/70 (90) 100 04/20/20 04:00 67 04/20/20 00:00 63 04/20/20 00:00 97.7 72 18 96/62 (73) 99 04/19/20 21:37 72 108/60 04/19/20 21:00 Room Air 04/19/20 20:00 75 04/19/20 20:00 97.0 72 18 108/60 (76) 98 Intake and Output 04/19/20 04/20/20 19:00 07:00 Intake Total 195 ml 375 ml Balance 195 ml 375 ml Intake Oral 120 ml IV Total 75 ml 375 ml # Voids 1 # Bowel Movements 1 Laboratory Tests 04/20/20 08:10: White Blood Count 7.8, Red Blood Count 3.38L, Hemoglobin 12.0, Hematocrit 38.5, Mean Corpuscular Volume 114H, Mean Corpuscular Hemoglobin 35.5H, Mean Corpuscular Hemoglobin Concent 31.2L, Red Cell Distribution Width 18.9H, Platelet Count 315, Mean Platelet Volume 6.9, Neutrophils (%) (Auto) , Lymphocytes (%) (Auto) , Monocytes (%) (Auto) , Eosinophils (%) (Auto) , Basophils (%) (Auto) , Differential Total Cells Counted 100, Neutrophils % (Manual) 75, Lymphocytes % (Manual) 18L, Monocytes % (Manual) 5, Eosinophils % (Manual) 2, Basophils % (Manual) 0, Band Neutrophils 0, Platelet Estimate Adequate, Platelet Morphology Normal, Hypochromasia 1+, Anisocytosis 1+, Macrocytosis 1+, Sodium Level 139, Potassium Level 3.3L, Chloride Level 107, Carbon Dioxide Level 25, Anion Gap 7, Blood Urea Nitrogen 7, Creatinine 0.8, Estimat Glomerular Filtration Rate > 60, Glucose Level 95, Calcium Level 8.4L, Phosphorus Level 2.0L, Magnesium Level 1.8 Height (Feet): 5 Height (Inches): 4.00 Weight (Pounds): 120 Joanna Salgado M.D. Apr 20, 2020 18:30
[2020-04-20 20:00] VITALS: BP 101/68
[2020-04-20] MEDS: Dronabinol 2.5mg Cap ORAL SCH (20:25)
--- NOTE | 2020-04-20 21:15 | Cardiac Electrophysiology PN ---
Assessment/Plan Assessment/Plan 1. Atrial fibrillation rapid ventricular response. Etiology is not clear. White count is normal. Rate stable on metoprolol 50 mg b.i.d. and Eliquis 5 mg b.i.d. 2. Inferolateral ischemia on 12-lead EKG. Likely due to Atrial fibrillation with rapid ventricular response. First troponin is negative. Rule out for MS EF 55% 3. Failure to thrive. The patient may need PEG placement. 4. History of carotid artery aneurysm. 5. Hypertension. Continue on metoprolol. MYAH RN Subjective Subjective More alert in NAD. Daughter at bedside. Better urine out put on iv fluid at 100 cc/hr Objective Last 24 Hour Vital Signs Date Time Temp Pulse Resp B/P (MAP) Pulse Ox O2 Delivery O2 Flow Rate FiO2 04/20/20 20:27 64 101/68 04/20/20 16:00 78 04/20/20 16:00 97.7 83 18 119/76 (90) 99 04/20/20 12:00 68 04/20/20 12:00 98.2 78 18 101/57 (72) 98 04/20/20 09:38 72 111/76 04/20/20 09:00 Room Air 04/20/20 08:00 98.2 72 18 111/76 (88) 96 04/20/20 08:00 108 04/20/20 04:00 97.5 79 18 130/70 (90) 100 04/20/20 04:00 67 04/20/20 00:00 63 04/20/20 00:00 97.7 72 18 96/62 (73) 99 04/19/20 21:37 72 108/60 Intake and Output 04/19/20 04/20/20 19:00 07:00 Intake Total 195 ml 375 ml Balance 195 ml 375 ml Intake Oral 120 ml IV Total 75 ml 375 ml # Voids 1 # Bowel Movements 1 Laboratory Tests Test 04/20/20 08:10 White Blood Count 7.8 K/UL (4.8-10.8) Red Blood Count 3.38 M/UL (4.20-5.40) L Hemoglobin 12.0 G/DL (12.0-16.0) Hematocrit 38.5 % (37.0-47.0) Mean Corpuscular Volume 114 FL (80-99) H Mean Corpuscular Hemoglobin 35.5 PG (27.0-31.0) H Mean Corpuscular Hemoglobin Concent 31.2 G/DL (32.0-36.0) L Red Cell Distribution Width 18.9 % (11.6-14.8) H Platelet Count 315 K/UL (150-450) Mean Platelet Volume 6.9 FL (6.5-10.1) Neutrophils (%) (Auto) % (45.0-75.0) Lymphocytes (%) (Auto) % (20.0-45.0) Monocytes (%) (Auto) % (1.0-10.0) Eosinophils (%) (Auto) % (0.0-3.0) Basophils (%) (Auto) % (0.0-2.0) Differential Total Cells Counted 100 Neutrophils % (Manual) 75 % (45-75) Lymphocytes % (Manual) 18 % (20-45) L Monocytes % (Manual) 5 % (1-10) Eosinophils % (Manual) 2 % (0-3) Basophils % (Manual) 0 % (0-2) Band Neutrophils 0 % (0-8) Platelet Estimate Adequate Platelet Morphology Normal Hypochromasia 1+ Anisocytosis 1+ Macrocytosis 1+ Sodium Level 139 MMOL/L (136-145) Potassium Level 3.3 MMOL/L (3.5-5.1) L Chloride Level 107 MMOL/L (98-107) Carbon Dioxide Level 25 MMOL/L (21-32) Anion Gap 7 mmol/L (5-15) Blood Urea Nitrogen 7 mg/dL (7-18) Creatinine 0.8 MG/DL (0.55-1.30) Estimat Glomerular Filtration Rate > 60 mL/min (>60) Glucose Level 95 MG/DL (74-106) Calcium Level 8.4 MG/DL (8.5-10.1) L Phosphorus Level 2.0 MG/DL (2.5-4.9) L Magnesium Level 1.8 MG/DL (1.8-2.4) Microbiology Date/Time Source Procedure Growth Status 04/18/20 13:48 Rectum VRE Culture - Final NO VANCOMYCIN RESISTANT ENTEROCOCCUS ... Complete 04/18/20 13:48 Rectum - Final NO CARBAPENEM-RESISTANT ENTEROBACTERI... Complete 04/18/20 13:48 Urine,Clean Catch Urine Culture - Preliminary Gram Negative Arnol Resulted 04/18/20 13:48 Nasal Nares MRSA Culture - Final NO METHICILLIN RESISTANT STAPH AUREUS... Complete Objective HEAD AND NECK: No JVD. LUNGS: Clear. CARDIOVASCULAR: Irregular S1 and S2 with no gallop or murmur. ABDOMEN: Soft. EXTREMITIES: No pitting edema. Angel Calvo MD Apr 20, 2020 21:15
[2020-04-21] VITALS: BP 111/70
[2020-04-21 04:00] VITALS: BP 100/63
[2020-04-21] MEDS: D5 1/2NS w/KCl 20mEq 1,000 ML IV SCH ×2 (05:48→18:04)
[2020-04-21] MEDS ORDERED: Meropenem 1 GM in NS 55 ML IVPB SCH (07:30)
[2020-04-21 08:00] VITALS: BP 122/64
[2020-04-21 09:16] LABS: HEMOGLOBIN 12.4 G/DL (12.0-16.0); MEAN CORPUSCULAR VOLUME 115 FL (80-99); PLATELET COUNT 274 K/UL (150-450); RED BLOOD COUNT 3.49 M/UL (4.20-5.40); RED CELL DISTRIBUTION WIDTH 19.1 % (11.6-14.8)
--- NOTE | 2020-04-21 09:52 | Diagnostic Imaging Report ---
EXAM: XR Abdomen, 2 Views CLINICAL HISTORY: F/U TECHNIQUE: Frontal view of the abdomen/pelvis with upright view of the abdomen. COMPARISON: No relevant prior studies available. FINDINGS/IMPRESSION: Nonobstructed bowel gas pattern. MODERATE FECAL RETENTION WITH LARGE STOOL IN THE RECTUM, CORRELATE FOR FECAL IMPACTION. No free intraperitoneal air. The lung bases are clear. Cardiomegaly. Calcification projecting over the right kidney measuring 2.2 x 0.8 cm may represent a stone. Consider CT scan evaluation.
[2020-04-21 10:00] LABS: ALANINE AMINOTRANSFERASE 12 U/L (12-78); ALBUMIN 2.3 G/DL (3.4-5.0); ALBUMIN/GLOBULIN RATIO 0.6 (1.0-2.7); ALKALINE PHOSPHATASE 69 U/L (46-116); ANION GAP 9 mmol/L (5-15); ASPARTATE AMINO TRANSFERASE 18 U/L (15-37); BILIRUBIN,TOTAL 0.4 MG/DL (0.2-1.0); BLOOD UREA NITROGEN 4 mg/dL (7-18); CALCIUM 8.5 MG/DL (8.5-10.1); CARBON DIOXIDE 22 MMOL/L (21-32); CHLORIDE 111 MMOL/L (98-107); CREATININE 0.7 MG/DL (0.55-1.30); POTASSIUM 4.2 MMOL/L (3.5-5.1); SODIUM 142 MMOL/L (136-145)
[2020-04-21 10:01] LABS: PHOSPHORUS 2.8 MG/DL (2.5-4.9)
--- NOTE | 2020-04-21 10:06 | Pulmonology Progress Note ---
Subjective ROS Limited/Unobtainable: No Interval Events: None new Constitutional: Reports: no symptoms HEENT: Repors: no symptoms Respiratory: Reports: no symptoms Cardiovascular: Reports: no symptoms Gastrointestinal/Abdominal: Reports: no symptoms Allergies: Coded Allergies: ADHESIVE TAPE (Unverified Allergy, Unknown, 12/25/16) PENICILLINS (Unverified Allergy, Unknown, 12/25/16) Uncoded Allergies: PENICILLIN (Allergy, Unknown, 12/25/16) Objective Last 24 Hour Vital Signs Date Time Temp Pulse Resp B/P (MAP) Pulse Ox O2 Delivery O2 Flow Rate FiO2 04/21/20 04:00 77 04/21/20 04:00 98.8 68 18 100/63 (75) 95 04/21/20 00:00 98.1 74 18 111/70 (84) 96 04/21/20 00:00 78 04/20/20 21:00 Room Air 04/20/20 20:27 64 101/68 04/20/20 20:00 68 04/20/20 20:00 98.1 64 20 101/68 (79) 99 04/20/20 16:00 78 04/20/20 16:00 97.7 83 18 119/76 (90) 99 04/20/20 12:00 68 04/20/20 12:00 98.2 78 18 101/57 (72) 98 Intake and Output 04/20/20 04/21/20 19:00 07:00 Intake Total 270 ml 675 ml Balance 270 ml 675 ml Intake Oral 195 ml IV Total 75 ml 675 ml # Voids 1 General Appearance: no acute distress HEENT: normocephalic Respiratory: chest wall non-tender, lungs clear Cardiovascular: normal peripheral pulses Abdomen: normal bowel sounds Microbiology Date/Time Source Procedure Growth Status 04/18/20 13:48 Rectum VRE Culture - Final NO VANCOMYCIN RESISTANT ENTEROCOCCUS ... Complete 04/18/20 13:48 Rectum - Final NO CARBAPENEM-RESISTANT ENTEROBACTERI... Complete 04/18/20 13:48 Urine,Clean Catch Urine Culture - Final Escherichia Coli - Esbl Complete 04/18/20 13:48 Nasal Nares MRSA Culture - Final NO METHICILLIN RESISTANT STAPH AUREUS... Complete Laboratory Tests 04/21/20 08:05: White Blood Count 8.0, Red Blood Count 3.49L, Hemoglobin 12.4, Hematocrit 40.0, Mean Corpuscular Volume 115H, Mean Corpuscular Hemoglobin 35.4H, Mean Corpuscular Hemoglobin Concent 30.9L, Red Cell Distribution Width 19.1H, Platelet Count 274, Mean Platelet Volume 6.8, Neutrophils (%) (Auto) , Lymphocytes (%) (Auto) , Monocytes (%) (Auto) , Eosinophils (%) (Auto) , Basophils (%) (Auto) , Neutrophils % (Manual) [Pending], Lymphocytes % (Manual) [Pending], Platelet Estimate [Pending], Platelet Morphology [Pending], Sodium Level 142, Potassium Level 4.2, Chloride Level 111H, Carbon Dioxide Level 22, Anion Gap 9, Blood Urea Nitrogen 4L, Creatinine 0.7, Estimat Glomerular Filtration Rate > 60, Glucose Level 73L, Calcium Level 8.5, Phosphorus Level 2.8, Magnesium Level 1.7L, Total Bilirubin 0.4, Aspartate Amino Transf (AST/SGOT) 18, Alanine Aminotransferase (ALT/SGPT) 12, Alkaline Phosphatase 69, Troponin I 0.013, Total Protein 6.1L, Albumin 2.3L, Globulin 3.8, Albumin/Globulin Ratio 0.6L Current Medications Medications (Trade) Dose Ordered Sig/Chad Route PRN Reason Start Time Stop Time Status Last Admin Dose Admin Acetaminophen (Tylenol) 650 mg Q4H PRN ORAL Mild Pain (Pain Scale 1-3) 04/18/20 15:15 05/18/20 15:14 Acetaminophen (Tylenol) 650 mg Q4H PRN ORAL Temp >100.5 04/18/20 15:15 05/18/20 15:14 Al Hydroxide/Mg Hydroxide (Mylanta II) 30 ml Q6H PRN ORAL dyspepsia 04/18/20 15:15 05/18/20 15:14 Albuterol/ Ipratropium (Albuterol/ Ipratropium) 3 ml Q4H PRN HHN Shortness of Breath 04/18/20 15:15 04/23/20 15:14 Apixaban (Eliquis) 2.5 mg BID ORAL 04/18/20 18:00 07/17/20 17:59 04/20/20 18:26 Ascorbic Acid (Vitamin C) 500 mg TWICE A DAY ORAL 04/20/20 18:00 05/20/20 17:59 04/20/20 18:25 Dextrose (Dextrose 50%) 25 ml Q30M PRN IV Hypoglycemia 04/18/20 15:15 07/17/20 15:14 Dextrose (Dextrose 50%) 50 ml Q30M PRN IV Hypoglycemia 04/18/20 15:15 07/17/20 15:14 Dextrose/ Electrolytes 1,000 ml @ 75 mls/hr [id number] IV 04/19/20 11:00 05/19/20 10:59 04/21/20 05:48 Docusate Sodium (Colace) 100 mg EVERY 12 HOURS ORAL 04/18/20 21:00 05/18/20 20:59 04/20/20 20:25 Dronabinol (Marinol) 2.5 mg TID ORAL 04/20/20 19:30 07/19/20 19:29 04/20/20 20:25 Ertapenem 1 gm/ Sodium Chloride 55 ml @ 110 mls/hr Q24H IV 04/21/20 09:00 04/26/20 08:59 Folic Acid (Folate) 1 mg DAILY ORAL 04/19/20 09:00 05/19/20 08:59 04/20/20 09:37 Metoprolol Tartrate (Lopressor) 5 mg Q5M PRN IVP afib with RVR HR > 120 up 04/18/20 15:15 07/17/20 15:14 Metoprolol Tartrate (Lopressor) 50 mg Q12HR ORAL 04/18/20 21:00 07/17/20 20:59 04/20/20 09:38 Mirtazapine (Remeron) 15 mg BEDTIME ORAL 04/20/20 21:00 07/19/20 20:59 04/20/20 20:25 Multivitamins (Multivitamins) 1 tab DAILY ORAL 04/21/20 09:00 05/21/20 08:59 Nitroglycerin (Ntg) 0.4 mg Q5M PRN SL Prn Chest Pain 04/18/20 15:15 05/18/20 15:14 Zinc Sulfate (Zinc Sulfate) 220 mg DAILY ORAL 04/21/20 09:00 05/01/20 08:59 Assessment/Plan Assessment/Plan IMPRESSION: 1. AFib with RVR. 2. Mild dyspnea. 3. Hypertension. DISCUSSION: The patient is doing well from respiratory standpoint. Saturating well on RA Predominant care by Cardiology for rate control. I will follow as pull tab dealer. Randy Meyers M.D. Randy Meyers MD Apr 21, 2020 10:06
[2020-04-21] MEDS: Ertapenem 1gm in NS 55ml IV SCH (10:25)
[2020-04-21] MEDS: Dronabinol 2.5mg Cap ORAL SCH ×3 (10:26→18:01)
[2020-04-21] MEDS: Metoprolol Tartrate 50mg tab ORAL SCH ×2 (10:26→21:18)
[2020-04-21] MEDS: Ascorbic Acid 500mg tab ORAL SCH ×2 (10:26→18:01)
[2020-04-21] MEDS: Eliquis 2.5mg tablet ORAL SCH ×2 (10:27→18:01)
[2020-04-21] MEDS: Docusate 100mg cap ORAL SCH ×3 (10:27→18:01)
[2020-04-21] MEDS: Zinc Sulfate 220mg ORAL SCH (10:27)
[2020-04-21] MEDS ORDERED: Sennosides 8.6mg tab ORAL PRN (10:30)
[2020-04-21] MEDS ORDERED: Magnesium Oxide 400mg tab ORAL SCH (10:30)
--- NOTE | 2020-04-21 10:36 | General Progress Note ---
Subjective Constitutional: Denies: no symptoms, chills, diaphoresis, fever, malaise, weakness, other HEENT: Denies: no symptoms, eye pain, blurred vision, tearing, double vision, ear pain, ear discharge, nose pain, nose congestion, throat pain, throat swelling, mouth pain, mouth swelling, other Cardiovascular: Denies: no symptoms, chest pain, edema, irregular heart rate, lightheadedness, palpitations, syncope, other Respiratory: Denies: no symptoms, cough, orthopnea, shortness of breath, SOB with excertion, SOB at rest, sputum, stridor, wheezing, other Gastrointestinal/Abdominal: Denies: no symptoms, abdomen distended, abdominal pain, black stools, tarry stools, blood in stool, constipated, diarrhea, difficulty swallowing, nausea, poor appetite, poor fluid intake, rectal bleeding, vomiting, other Genitourinary: Denies: no symptoms, burning, discharge, frequency, flank pain, hematuria, incontinence, pain, urgency, other Neurologic/Psychiatric: Denies: no symptoms, anxiety, depressed, emotional problems, headache, numbness, paresthesia, pre-existing deficit, seizure, tingling, tremors, weakness, other Endocrine: Denies: no symptoms, excessive sweating, flushing, intolerance to cold, intolerance to heat, increased hunger, increased thirst, increased urine, unexplained weight gain, unexplained weight loss, other Hematologic/Lymphatic: Denies: no symptoms, anemia, easy bleeding, easy bruising, other Allergies: Coded Allergies: ADHESIVE TAPE (Unverified Allergy, Unknown, 12/25/16) PENICILLINS (Unverified Allergy, Unknown, 12/25/16) Uncoded Allergies: PENICILLIN (Allergy, Unknown, 12/25/16) Subjective No acute events overnight. Patient resting comfortably in bed. Noted to have decreased appetite. However does not want any PEG placement. No new complaints today. Objective Last 24 Hour Vital Signs Date Time Temp Pulse Resp B/P (MAP) Pulse Ox O2 Delivery O2 Flow Rate FiO2 04/21/20 10:26 91 122/64 04/21/20 04:00 77 04/21/20 04:00 98.8 68 18 100/63 (75) 95 04/21/20 00:00 98.1 74 18 111/70 (84) 96 04/21/20 00:00 78 04/20/20 21:00 Room Air 04/20/20 20:27 64 101/68 04/20/20 20:00 68 04/20/20 20:00 98.1 64 20 101/68 (79) 99 04/20/20 16:00 78 04/20/20 16:00 97.7 83 18 119/76 (90) 99 04/20/20 12:00 68 04/20/20 12:00 98.2 78 18 101/57 (72) 98 Intake and Output 04/20/20 04/21/20 19:00 07:00 Intake Total 270 ml 675 ml Balance 270 ml 675 ml Intake Oral 195 ml IV Total 75 ml 675 ml # Voids 1 Laboratory Tests 04/21/20 08:05: White Blood Count 8.0, Red Blood Count 3.49L, Hemoglobin 12.4, Hematocrit 40.0, Mean Corpuscular Volume 115H, Mean Corpuscular Hemoglobin 35.4H, Mean Corpuscul ar Hemoglobin Concent 30.9L, Red Cell Distribution Width 19.1H, Platelet Count 274, Mean Platelet Volume 6.8, Neutrophils (%) (Auto) , Lymphocytes (%) (Auto) , Monocytes (%) (Auto) , Eosinophils (%) (Auto) , Basophils (%) (Auto) , Neutrophils % (Manual) [Pending], Lymphocytes % (Manual) [Pending], Platelet Estimate [Pending], Platelet Morphology [Pending], Sodium Level 142, Potassium Level 4.2, Chloride Level 111H, Carbon Dioxide Level 22, Anion Gap 9, Blood Urea Nitrogen 4L, Creatinine 0.7, Estimat Glomerular Filtration Rate > 60, Glucose Level 73L, Calcium Level 8.5, Phosphorus Level 2.8, Magnesium Level 1.7L, Total Bilirubin 0.4, Aspartate Amino Transf (AST/SGOT) 18, Alanine Aminotransferase (ALT/SGPT) 12, Alkaline Phosphatase 69, Troponin I 0.013, Total Protein 6.1L, Albumin 2.3L, Globulin 3.8, Albumin/Globulin Ratio 0.6L Height (Feet): 5 Height (Inches): 4.00 Weight (Pounds): 120 General Appearance: no apparent distress, alert, alert oriented x3 EENT: PERRL/EOMI, normal ENT inspection Neck: non-tender, normal alignment Cardiovascular: normal rate, regular rhythm, no JVD Respiratory/Chest: lungs clear, normal breath sounds, respiratory distress Abdomen: non tender, soft, no mass Extremities: non-tender Edema: no edema noted Arm (L), no edema noted Arm (R), no edema noted Leg (L), no edema noted Leg (R), no edema noted Pedal (L), no edema noted Pedal (R), no edema noted Generalized Neurologic: pile trimmer II-XII grossly normal, alert Skin: normal pigmentation, warm/dry Assessment/Plan Assessment/Plan: Mrs. Tobar is an 80-year-old female past medical history of A. fib, hypertension, carotid artery aneurysm is presenting from SNF for generalized weakness. A: #Atrial fibrillation with rapid ventricular heart rate 2/2 possible infectious etiology #Failure to thrive #UTI with ESBL E. coli #Mild pulmonary hypertension possibly class I #Essential hypertension #Carotid artery aneurysm #Poor oral intake #Hypokalemia P: Currently hemodynamically stable Saturating well on room air, O2 saturations greater than 92%, monitor for increased O2 support Continue metoprolol 50 mg twice daily On Eliquis We will start ertapenem for ESBL E. coli today IVF Replace folic acid deficiency Nutritional consult Started on Remeron and Marinol Patient does not want to have PEG placement, however discussed with her at length that she will need to show that she can eat on her own to provide adequate nutrition, she agrees and will try to increase her oral intake colitis for We will start Colace, senna based off stool retention on abdominal ultrasound Consult Dr. Calvo, cardiology, recs appreciated Consult Dr. Salgado, nephrology, recs appreciated CM Code: DO NOT INTUBATE GI: None DVT prophylaxis: Eliquis Diet: Cardiac Dispo: Pending improvement of oral intake, discharge back to SNF Time spent on this encounter was 35 minutes which included 22 minutes of counseling and care coordination. I discussed with the nurse at bedside. Time of note may not reflect time patient was seen. Syd Yepez D.O Apr 21, 2020 10:36
[2020-04-21 12:00] VITALS: BP 148/76
--- NOTE | 2020-04-21 14:50 | Nephrology Progress Note ---
Assessment/Plan Plan #afib with RVR #UTI #Hypokalemia #Hypophos #failure to thrive #HTN #anemia - start drabaniolol - IVF - replete lytes - cardiology eval - ceftriaxone for UTI - meop 50 BID - apixaban 2.5mg BID - monitor lytes - monitor for bleeding time spent 35min Subjective ROS Limited/Unobtainable: No Constitutional: Reports: weakness HEENT: Denies: no symptoms, eye pain, blurred vision, tearing, double vision, ear pain, ear discharge, nose pain, nose congestion, throat pain, throat swelling, mouth pain, mouth swelling, other Genitourinary: Denies: no symptoms, burning, discharge, frequency, flank pain, hematuria, incontinence, pain, urgency, other Neurologic/Psychiatric: Denies: no symptoms, anxiety, depressed, emotional problems, headache, numbness, paresthesia, pre-existing deficit, seizure, tingling, tremors, weakness, other Subjective appitite poor refusing to eat will start dranabinol Objective Objective Last 24 Hour Vital Signs Date Time Temp Pulse Resp B/P (MAP) Pulse Ox O2 Delivery O2 Flow Rate FiO2 04/21/20 12:00 99.3 75 18 148/76 (100) 99 04/21/20 12:00 77 04/21/20 10:26 91 122/64 04/21/20 09:00 Room Air 04/21/20 08:00 99.1 91 18 122/64 (83) 100 04/21/20 08:00 89 04/21/20 04:00 77 04/21/20 04:00 98.8 68 18 100/63 (75) 95 04/21/20 00:00 98.1 74 18 111/70 (84) 96 04/21/20 00:00 78 04/20/20 21:00 Room Air 04/20/20 20:27 64 101/68 04/20/20 20:00 68 04/20/20 20:00 98.1 64 20 101/68 (79) 99 04/20/20 16:00 78 04/20/20 16:00 97.7 83 18 119/76 (90) 99 Intake and Output 04/20/20 04/21/20 19:00 07:00 Intake Total 270 ml 675 ml Balance 270 ml 675 ml Intake Oral 195 ml IV Total 75 ml 675 ml # Voids 1 Laboratory Tests 04/21/20 08:05: White Blood Count 8.0, Red Blood Count 3.49L, Hemoglobin 12.4, Hematocrit 40.0, Mean Corpuscular Volume 115H, Mean Corpuscular Hemoglobin 35.4H, Mean Corpuscular Hemoglobin Concent 30.9L, Red Cell Distribution Width 19.1H, Platelet Count 274, Mean Platelet Volume 6.8, Neutrophils (%) (Auto) , Lymphocytes (%) (Auto) , Monocytes (%) (Auto) , Eosinophils (%) (Auto) , Basophils (%) (Auto) , Differential Total Cells Counted 100, Neutrophils % (Manual) 72, Lymphocytes % (Manual) 19L, Monocytes % (Manual) 9, Eosinophils % (Manual) 0, Basophils % (Manual) 0, Band Neutrophils 0, Platelet Estimate Adequate, Platelet Morphology Normal, Hypochromasia 1+, Anisocytosis 2+, Macrocytosis 1+, Sodium Level 142, Potassium Level 4.2, Chloride Level 111H, Carbon Dioxide Level 22, Anion Gap 9, Blood Urea Nitrogen 4L, Creatinine 0.7, Estimat Glomerular Filtration Rate > 60, Glucose Level 73L, Calcium Level 8.5, P hosphorus Level 2.8, Magnesium Level 1.7L, Total Bilirubin 0.4, Aspartate Amino Transf (AST/SGOT) 18, Alanine Aminotransferase (ALT/SGPT) 12, Alkaline Phosphatase 69, Troponin I 0.013, Total Protein 6.1L, Albumin 2.3L, Globulin 3.8, Albumin/Globulin Ratio 0.6L Height (Feet): 5 Height (Inches): 4.00 Weight (Pounds): 120 Joanna Salgado M.D. Apr 21, 2020 14:50
[2020-04-21 16:00] VITALS: BP 130/70
--- NOTE | 2020-04-21 17:32 | Surgery Progress Note ---
Surgery Progress Note Subjective Additional Comments no acute events labs noted exam stable no n/v Objective Last 24 Hour Vital Signs Date Time Temp Pulse Resp B/P (MAP) Pulse Ox O2 Delivery O2 Flow Rate FiO2 04/21/20 12:00 99.3 75 18 148/76 (100) 99 04/21/20 12:00 77 04/21/20 10:26 91 122/64 04/21/20 09:00 Room Air 04/21/20 08:00 99.1 91 18 122/64 (83) 100 04/21/20 08:00 89 04/21/20 04:00 77 04/21/20 04:00 98.8 68 18 100/63 (75) 95 04/21/20 00:00 98.1 74 18 111/70 (84) 96 04/21/20 00:00 78 04/20/20 21:00 Room Air 04/20/20 20:27 64 101/68 04/20/20 20:00 68 04/20/20 20:00 98.1 64 20 101/68 (79) 99 I&O Intake and Output 04/20/20 04/21/20 19:00 07:00 Intake Total 270 ml 675 ml Balance 270 ml 675 ml Intake Oral 195 ml IV Total 75 ml 675 ml # Voids 1 Laboratory Tests Test 04/21/20 08:05 White Blood Count 8.0 K/UL (4.8-10.8) Red Blood Count 3.49 M/UL (4.20-5.40) L Hemoglobin 12.4 G/DL (12.0-16.0) Hematocrit 40.0 % (37.0-47.0) Mean Corpuscular Volume 115 FL (80-99) H Mean Corpuscular Hemoglobin 35.4 PG (27.0-31.0) H Mean Corpuscular Hemoglobin Concent 30.9 G/DL (32.0-36.0) L Red Cell Distribution Width 19.1 % (11.6-14.8) H Platelet Count 274 K/UL (150-450) Mean Platelet Volume 6.8 FL (6.5-10.1) Neutrophils (%) (Auto) % (45.0-75.0) Lymphocytes (%) (Auto) % (20.0-45.0) Monocytes (%) (Auto) % (1.0-10.0) Eosinophils (%) (Auto) % (0.0-3.0) Basophils (%) (Auto) % (0.0-2.0) Differential Total Cells Counted 100 Neutrophils % (Manual) 72 % (45-75) Lymphocytes % (Manual) 19 % (20-45) L Monocytes % (Manual) 9 % (1-10) Eosinophils % (Manual) 0 % (0-3) Basophils % (Manual) 0 % (0-2) Band Neutrophils 0 % (0-8) Platelet Estimate Adequate Platelet Morphology Normal Hypochromasia 1+ Anisocytosis 2+ Macrocytosis 1+ Sodium Level 142 MMOL/L (136-145) Potassium Level 4.2 MMOL/L (3.5-5.1) Chloride Level 111 MMOL/L (98-107) H Carbon Dioxide Level 22 MMOL/L (21-32) Anion Gap 9 mmol/L (5-15) Blood Urea Nitrogen 4 mg/dL (7-18) L Creatinine 0.7 MG/DL (0.55-1.30) Estimat Glomerular Filtration Rate > 60 mL/min (>60) Glucose Level 73 MG/DL (74-106) L Calcium Level 8.5 MG/DL (8.5-10.1) Phosphorus Level 2.8 MG/DL (2.5-4.9) Magnesium Level 1.7 MG/DL (1.8-2.4) L Total Bilirubin 0.4 MG/DL (0.2-1.0) Aspartate Amino Transf (AST/SGOT) 18 U/L (15-37) Alanine Aminotransferase (ALT/SGPT) 12 U/L (12-78) Alkaline Phosphatase 69 U/L (46-116) Troponin I 0.013 ng/mL (0.000-0.056) Total Protein 6.1 G/DL (6.4-8.2) L Albumin 2.3 G/DL (3.4-5.0) L Globulin 3.8 g/dL Albumin/Globulin Ratio 0.6 (1.0-2.7) L Plan Problems: (1) Decubitus skin ulcer Assessment & Plan: [address] [place] [address] facility presented on admission with multiple skin concerns. RIGHT BUTTOCK- STAGE IV PRESSURE ULCER MEASURES 3.0X2.0X0.8CM. WOUND BED WITH 40% YELLOW SLOUGH. NO ODOR. ISABELLA-WOUND SKIN WITH NOTED SCARRING. INTACT AT THIS TIME. RECOMMEND-CLEAN WITH SALINE, PAT DRY, APPLY THERAHONEY AND COVER WITH OPTIFOAM DRESSING. REPLACE DAILY. LEFT BUTTOCK-STAGE II PRESSURE ULCER MEASURES 1.0X1.5X0.2CM. WOUND BED PINK. ISABELLA-WOUND SKIN WITH NOTED SCARRING WELL. INTACT AT THIS TIME. RECOMMEND-CLEAN WITH SALINE, PAT DRY, APPLY TRIAD AND COVER WITH OPTIFOAM DRESSING. REPLACE EVERY OTHER DAY.. LEFT LATERAL HEEL- DARK BROWN ESCHAR MEASURES 2.0X1.0CM WITH DTI SURROUNDING IT. DTI MEASURES 2.5X2.0CM AREA DARK PURPLE IN COLOR AND BOGGY TO TOUCH. RECOMMEND- APPLY CAVILON SKIN PROTECTOR AND COVER WITH OPTIFOAM DRESSING. REPLACE EVERY 3 DAYS. RIGHT HEEL- DTI MEASURES 3.0X1.5CM AREA DARK PURPLE IN COLOR. RECOMMEND- APPLY CAVILON SKIN PROTECTOR AND COVER WITH OPTIFOAM DRESSING. REPLACE EVERY 3 DAYS. Turn Q2H OFF LOAD PRESSURE WITH PILLOWS AIR LOSS MATTRESS NUTRITIONAL OPTIMIZATION (2) Malnutrition Assessment & Plan: nutrition required for wound healing bmi 20 low alb diet as tolerated bowel regimen labs noted will follow with recs DAILY ESTIMATED NEEDS: Needs based on Wound, underweight/ 46.5kg 30-35 kcals/kg [id number] total kcals 1.25-1.5 g protein/kg 58-70 g total protein 25-30 mL/kg [id number] total fluid mLs NUTRITION DIAGNOSIS: * Increased kcal/prot needs R/T wound healing, underweight status as evidenced by admitted w/ multiple wounds, including stage 4 R buttock wound, stage 2 L buttock wound, DTI @ L lateral heel and R heel, pt @ 8% IBW w/ low BMI per guidelines, w/ poor and variable intake noted. * Swallowing difficulty R/T dysphagia as evidenced by pt on pureed texture INTERPRETER TRANSLATOR. CURRENT DIET:CARDIAC PO DIET RECOMMENDATIONS: Liberalized regular/ texture per AVIONICS REPAIR TECHNICIAN ADDITIONAL RECOMMENDATIONS: * Calibrated bedscale wt * Ensure Enlive TID w/ meals * AVIONICS REPAIR TECHNICIAN eval for appropriate texture and liquid consistency -> pt on pureed texture INTERPRETER TRANSLATOR, downgraded to pureed for now * Wound healing: MVI w/ min x1, Vit C 500mg BID, ZnSO4 220mg QD x 10days Saurav BID added to tray (3) UTI (urinary tract infection) (4) Atrial fibrillation with RVR (5) Low back pain (6) ACS (acute coronary syndrome) (7) Toxic metabolic encephalopathy (8) Abdominal distension Assessment & Plan: Nonobstructed bowel gas pattern. MODERATE FECAL RETENTION WITH LARGE STOOL IN THE RECTUM, CORRELATE FOR FECAL IMPACTION. No free intraperitoneal air. The lung bases are clear. Cardiomegaly. Calcification projecting over the right kidney measuring 2.2 x 0.8 cm may represent a stone. enema bowel regimen Refugio Maria Apr 21, 2020 17:32
[2020-04-21] MEDS ORDERED: Fleet's Enema 133ml RECTAL SCH (17:45)
[2020-04-21 20:00] VITALS: BP 121/78
[2020-04-22] VITALS: BP 123/77
[2020-04-22 04:00] VITALS: BP 123/74
[2020-04-22] MEDS: D5 1/2NS w/KCl 20mEq 1,000 ML IV SCH ×2 (06:27→21:40)
[2020-04-22 06:40] LABS: HEMATOCRIT 38.7 % (37.0-47.0); HEMOGLOBIN 11.9 G/DL (12.0-16.0); MEAN CORPUSCULAR VOLUME 115 FL (80-99); PLATELET COUNT 303 K/UL (150-450); RED BLOOD COUNT 3.37 M/UL (4.20-5.40); RED CELL DISTRIBUTION WIDTH 18.9 % (11.6-14.8); WHITE BLOOD COUNT 7.8 K/UL (4.8-10.8)
[2020-04-22 07:06] LABS: ALANINE AMINOTRANSFERASE 12 U/L (12-78); ALBUMIN 2.2 G/DL (3.4-5.0); ALBUMIN/GLOBULIN RATIO 0.6 (1.0-2.7); ALKALINE PHOSPHATASE 72 U/L (46-116); ANION GAP 7 mmol/L (5-15); ASPARTATE AMINO TRANSFERASE 23 U/L (15-37); BILIRUBIN,TOTAL 0.4 MG/DL (0.2-1.0); BLOOD UREA NITROGEN 3 mg/dL (7-18); CALCIUM 8.5 MG/DL (8.5-10.1); CARBON DIOXIDE 23 MMOL/L (21-32); CHLORIDE 110 MMOL/L (98-107); CREATININE 0.7 MG/DL (0.55-1.30); POTASSIUM 4.5 MMOL/L (3.5-5.1); SODIUM 140 MMOL/L (136-145)
[2020-04-22 08:00] VITALS: BP 135/75
--- NOTE | 2020-04-22 09:01 | General Progress Note ---
Subjective Constitutional: Denies: no symptoms, chills, diaphoresis, fever, malaise, weakness, other HEENT: Denies: no symptoms, eye pain, blurred vision, tearing, double vision, ear pain, ear discharge, nose pain, nose congestion, throat pain, throat swelling, mouth pain, mouth swelling, other Cardiovascular: Denies: no symptoms, chest pain, edema, irregular heart rate, lightheadedness, palpitations, syncope, other Respiratory: Denies: no symptoms, cough, orthopnea, shortness of breath, SOB with excertion, SOB at rest, sputum, stridor, wheezing, other Gastrointestinal/Abdominal: Denies: no symptoms, abdomen distended, abdominal pain, black stools, tarry stools, blood in stool, constipated, diarrhea, difficulty swallowing, nausea, poor appetite, poor fluid intake, rectal bleeding, vomiting, other Genitourinary: Denies: no symptoms, burning, discharge, frequency, flank pain, hematuria, incontinence, pain, urgency, other Neurologic/Psychiatric: Denies: no symptoms, anxiety, depressed, emotional problems, headache, numbness, paresthesia, pre-existing deficit, seizure, tingling, tremors, weakness, other Endocrine: Denies: no symptoms, excessive sweating, flushing, intolerance to cold, intolerance to heat, increased hunger, increased thirst, increased urine, unexplained weight gain, unexplained weight loss, other Hematologic/Lymphatic: Denies: no symptoms, anemia, easy bleeding, easy bruising, other Allergies: Coded Allergies: ADHESIVE TAPE (Unverified Allergy, Unknown, 12/25/16) PENICILLINS (Unverified Allergy, Unknown, 12/25/16) Uncoded Allergies: PENICILLIN (Allergy, Unknown, 12/25/16) Subjective No acute events overnight. Patient was Fleet enema yesterday for stool impaction. Patient feels better this morning, noted to have increased energy today. She notes her appetite has increased. She would only want to try solid foods nothing mashed up. Objective Last 24 Hour Vital Signs Date Time Temp Pulse Resp B/P (MAP) Pulse Ox O2 Delivery O2 Flow Rate FiO2 04/22/20 08:00 97.9 83 18 135/75 (95) 98 04/22/20 04:00 97.7 83 16 123/74 (90) 100 04/22/20 04:00 75 04/22/20 00:00 74 04/22/20 00:00 97.7 70 16 123/77 (92) 99 04/21/20 21:18 79 121/78 04/21/20 21:00 Room Air 04/21/20 20:00 97.5 79 20 121/78 (92) 99 04/21/20 20:00 68 04/21/20 16:00 99.0 74 18 130/70 (90) 100 04/21/20 16:00 73 04/21/20 12:00 99.3 75 18 148/76 (100) 99 04/21/20 12:00 77 04/21/20 10:26 91 122/64 04/21/20 09:00 Room Air Intake and Output 04/21/20 04/22/20 19:00 07:00 Intake Total 300 ml 675 ml Balance 300 ml 675 ml Intake Oral 225 ml IV Total 75 ml 675 ml # Voids 1 3 # Bowel Movements 1 2 Laboratory Tests 04/22/20 05:25: White Blood Count 7.8, Red Blood Count 3.37L, Hemoglobin 11.9L, Hematocrit 38.7, Mean Corpuscular Volume 115H, Mean Corpuscular Hemoglobin 35.4H, Mean Corpuscular Hemoglobin Concent 30.8L, Red Cell Distribution Width 18.9H, Platelet Count 303, Mean Platelet Volume 6.9, Neutrophils (%) (Auto) , L ymphocytes (%) (Auto) , Monocytes (%) (Auto) , Eosinophils (%) (Auto) , Basophils (%) (Auto) , Neutrophils % (Manual) [Pending], Lymphocytes % (Manual) [Pending], Platelet Estimate [Pending], Platelet Morphology [Pending], Sodium Level 140, Potassium Level 4.5, Chloride Level 110H, Carbon Dioxide Level 23, Anion Gap 7, Blood Urea Nitrogen 3L, Creatinine 0.7, Estimat Glomerular Filtration Rate > 60, Glucose Level 90, Calcium Level 8.5, Total Bilirubin 0.4, Aspartate Amino Transf (AST/SGOT) 23, Alanine Aminotransferase (ALT/SGPT) 12, Alkaline Phosphatase 72, Total Protein 6.0L, Albumin 2.2L, Globulin 3.8, Albumin/Globulin Ratio 0.6L Height (Feet): 5 Height (Inches): 4.00 Weight (Pounds): 120 General Appearance: no apparent distress, alert, alert oriented x3 EENT: PERRL/EOMI Neck: normal alignment, supple Cardiovascular: normal rate, regular rhythm, no JVD Respiratory/Chest: lungs clear, normal breath sounds, no respiratory distress Abdomen: normal bowel sounds, non tender, soft Extremities: non-tender Edema: no edema noted Arm (L), no edema noted Arm (R), no edema noted Leg (L), no edema noted Leg (R), no edema noted Pedal (L), no edema noted Pedal (R), no edema noted 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 Tobar is an 80-year-old female past medical history of A. fib, hypertension, carotid artery aneurysm is presenting from SNF for generalized weakness. A: #Atrial fibrillation with rapid ventricular heart rate 2/2 possible infectious etiology #Failure to thrive #UTI with ESBL E. coli #Mild pulmonary hypertension possibly class I #Essential hypertension #Carotid artery aneurysm #Poor oral intake #Constipation P: Currently hemodynamically stable Continue metoprolol 50 mg twice daily On Eliquis Continue ertapenem for ESBL E. coli UTI IVF Replace folic acid deficiency Nutritional consult Continue Remeron and Marinol Status post Fleet enema, which he now feels better with proved appetite, instructed nurse to give her regular food as at patient's request Patient does not want to have PEG placement, however discussed with her at length that she will need to show that she can eat on her own to provide adequate nutrition, she agrees and will try to increase her oral intake colitis for Continue Colace, senna Consult Dr. Calvo, cardiology, recs appreciated Consult Dr. Salgado, nephrology, recs appreciated CM Code: DO NOT INTUBATE GI: None DVT prophylaxis: Eliquis Diet: Cardiac Dispo: Possible discharge back to SNF tomorrow if patient shows increased oral intake today Time spent on this encounter was 35 minutes which included 21 minutes of counseling and care coordination. I discussed with the nurse at bedside. Time of note may not reflect time patient was seen. Syd Yepez D.O Apr 22, 2020 09:01
[2020-04-22] MEDS: Ascorbic Acid 500mg tab ORAL SCH ×2 (09:04→16:56)
[2020-04-22] MEDS: Ertapenem 1gm in NS 55ml IV SCH (09:04)
[2020-04-22] MEDS: Zinc Sulfate 220mg ORAL SCH (09:05)
[2020-04-22] MEDS: Dronabinol 2.5mg Cap ORAL SCH ×3 (09:05→16:56)
[2020-04-22] MEDS: Metoprolol Tartrate 50mg tab ORAL SCH ×2 (09:05→21:40)
[2020-04-22] MEDS: Docusate 100mg cap ORAL SCH ×2 (09:06→16:56)
[2020-04-22] MEDS: Eliquis 2.5mg tablet ORAL SCH ×2 (09:06→16:56)
--- NOTE | 2020-04-22 09:49 | Cardiac Electrophysiology PN ---
Assessment/Plan Assessment/Plan 1. Atrial fibrillation rapid ventricular response. Etiology is not clear. Continue metoprolol 50 mg b.i.d. and Eliquis 5 mg b.i.d. 2. Inferolateral ischemia on 12-lead EKG. Likely due to Atrial fibrillation with rapid ventricular response. Both troponins are negative. Ruled out for OK EF 55% 3. Failure to thrive. Refused PEG placement. 4. History of carotid artery aneurysm. 5. Hypertension. Continue on metoprolol. MYAH RN Subjective Subjective More alert in NAD. Is now being ruled out for Covid Objective Last 24 Hour Vital Signs Date Time Temp Pulse Resp B/P (MAP) Pulse Ox O2 Delivery O2 Flow Rate FiO2 04/22/20 09:05 83 135/75 04/22/20 08:00 97.9 83 18 135/75 (95) 98 04/22/20 04:00 97.7 83 16 123/74 (90) 100 04/22/20 04:00 75 04/22/20 00:00 74 04/22/20 00:00 97.7 70 16 123/77 (92) 99 04/21/20 21:18 79 121/78 04/21/20 21:00 Room Air 04/21/20 20:00 97.5 79 20 121/78 (92) 99 04/21/20 20:00 68 04/21/20 16:00 99.0 74 18 130/70 (90) 100 04/21/20 16:00 73 04/21/20 12:00 99.3 75 18 148/76 (100) 99 04/21/20 12:00 77 04/21/20 10:26 91 122/64 Intake and Output 04/21/20 04/22/20 19:00 07:00 Intake Total 300 ml 675 ml Balance 300 ml 675 ml Intake Oral 225 ml IV Total 75 ml 675 ml # Voids 1 3 # Bowel Movements 1 2 Laboratory Tests Test 04/22/20 05:25 White Blood Count 7.8 K/UL (4.8-10.8) Red Blood Count 3.37 M/UL (4.20-5.40) L Hemoglobin 11.9 G/DL (12.0-16.0) L Hematocrit 38.7 % (37.0-47.0) Mean Corpuscular Volume 115 FL (80-99) H Mean Corpuscular Hemoglobin 35.4 PG (27.0-31.0) H Mean Corpuscular Hemoglobin Concent 30.8 G/DL (32.0-36.0) L Red Cell Distribution Width 18.9 % (11.6-14.8) H Platelet Count 303 K/UL (150-450) Mean Platelet Volume 6.9 FL (6.5-10.1) Neutrophils (%) (Auto) % (45.0-75.0) Lymphocytes (%) (Auto) % (20.0-45.0) Monocytes (%) (Auto) % (1.0-10.0) Eosinophils (%) (Auto) % (0.0-3.0) Basophils (%) (Auto) % (0.0-2.0) Differential Total Cells Counted 100 Neutrophils % (Manual) 76 % (45-75) H Lymphocytes % (Manual) 19 % (20-45) L Monocytes % (Manual) 5 % (1-10) Eosinophils % (Manual) 0 % (0-3) Basophils % (Manual) 0 % (0-2) Band Neutrophils 0 % (0-8) Platelet Estimate Adequate Platelet Morphology Normal Hypochromasia 1+ Anisocytosis 1+ Macrocytosis 1+ Sodium Level 140 MMOL/L (136-145) Potassium Level 4.5 MMOL/L (3.5-5.1) Chloride Level 110 MMOL/L (98-107) H Carbon Dioxide Level 23 MMOL/L (21-32) Anion Gap 7 mmol/L (5-15) Blood Urea Nitrogen 3 mg/dL (7-18) L Creatinine 0.7 MG/DL (0.55-1.30) Estimat Glomerular Filtration Rate > 60 mL/min (>60) Glucose Level 90 MG/DL (74-106) Calcium Level 8.5 MG/DL (8.5-10.1) Total Bilirubin 0.4 MG/DL (0.2-1.0) Aspartate Amino Transf (AST/SGOT) 23 U/L (15-37) Alanine Aminotransferase (ALT/SGPT) 12 U/L (12-78) Alkaline Phosphatase 72 U/L (46-116) Total Protein 6.0 G/DL (6.4-8.2) L Albumin 2.2 G/DL (3.4-5.0) L Globulin 3.8 g/dL Albumin/Globulin Ratio 0.6 (1.0-2.7) L Objective HEAD AND NECK: No JVD. LUNGS: Clear. CARDIOVASCULAR: Irregular S1 and S2 with no gallop or murmur. ABDOMEN: Soft. EXTREMITIES: No pitting edema. Angel Calvo MD Apr 22, 2020 09:49
--- NOTE | 2020-04-22 10:12 | Pulmonology Progress Note ---
Subjective ROS Limited/Unobtainable: No Interval Events: None new Constitutional: Reports: no symptoms HEENT: Repors: no symptoms Respiratory: Reports: no symptoms Cardiovascular: Reports: no symptoms Gastrointestinal/Abdominal: Reports: no symptoms Allergies: Coded Allergies: ADHESIVE TAPE (Unverified Allergy, Unknown, 12/25/16) PENICILLINS (Unverified Allergy, Unknown, 12/25/16) Uncoded Allergies: PENICILLIN (Allergy, Unknown, 12/25/16) Objective Last 24 Hour Vital Signs Date Time Temp Pulse Resp B/P (MAP) Pulse Ox O2 Delivery O2 Flow Rate FiO2 04/22/20 09:05 83 135/75 04/22/20 08:00 97.9 83 18 135/75 (95) 98 04/22/20 04:00 97.7 83 16 123/74 (90) 100 04/22/20 04:00 75 04/22/20 00:00 74 04/22/20 00:00 97.7 70 16 123/77 (92) 99 04/21/20 21:18 79 121/78 04/21/20 21:00 Room Air 04/21/20 20:00 97.5 79 20 121/78 (92) 99 04/21/20 20:00 68 04/21/20 16:00 99.0 74 18 130/70 (90) 100 04/21/20 16:00 73 04/21/20 12:00 99.3 75 18 148/76 (100) 99 04/21/20 12:00 77 04/21/20 10:26 91 122/64 Intake and Output 04/21/20 04/22/20 19:00 07:00 Intake Total 300 ml 675 ml Balance 300 ml 675 ml Intake Oral 225 ml IV Total 75 ml 675 ml # Voids 1 3 # Bowel Movements 1 2 General Appearance: no acute distress HEENT: normocephalic Respiratory: chest wall non-tender, lungs clear Cardiovascular: normal peripheral pulses Abdomen: normal bowel sounds Laboratory Tests 04/22/20 05:25: White Blood Count 7.8, Red Blood Count 3.37L, Hemoglobin 11.9L, Hematocrit 38.7, Mean Corpuscular Volume 115H, Mean Corpuscular Hemoglobin 35.4H, Mean Corpuscular Hemoglobin Concent 30.8L, Red Cell Distribution Width 18.9H, Plat elet Count 303, Mean Platelet Volume 6.9, Neutrophils (%) (Auto) , Lymphocytes (%) (Auto) , Monocytes (%) (Auto) , Eosinophils (%) (Auto) , Basophils (%) (Auto) , Differential Total Cells Counted 100, Neutrophils % (Manual) 76H, Lymphocytes % (Manual) 19L, Monocytes % (Manual) 5, Eosinophils % (Manual) 0, Basophils % (Manual) 0, Band Neutrophils 0, Platelet Estimate Adequate, Platelet Morphology Normal, Hypochromasia 1+, Anisocytosis 1+, Macrocytosis 1+, Sodium Level 140, Potassium Level 4.5, Chloride Level 110H, Carbon Dioxide Level 23, Anion Gap 7, Blood Urea Nitrogen 3L, Creatinine 0.7, Estimat Glomerular Filtration Rate > 60, Glucose Level 90, Calcium Level 8.5, Total Bilirubin 0.4, Aspartate Amino Transf (AST/SGOT) 23, Alanine Aminotransferase (ALT/SGPT) 12, Alkaline Phosphatase 72, Total Protein 6.0L, Albumin 2.2L, Globulin 3.8, Albumin/Globulin Ratio 0.6L Current Medications Medications (Trade) Dose Ordered Sig/Chad Route PRN Reason Start Time Stop Time Status Last Admin Dose Admin Acetaminophen (Tylenol) 650 mg Q4H PRN ORAL Mild Pain (Pain Scale 1-3) 04/18/20 15:15 05/18/20 15:14 Acetaminophen (Tylenol) 650 mg Q4H PRN ORAL Temp >100.5 04/18/20 15:15 05/18/20 15:14 Al Hydroxide/Mg Hydroxide (Mylanta II) 30 ml Q6H PRN ORAL dyspepsia 04/18/20 15:15 05/18/20 15:14 Albuterol/ Ipratropium (Albuterol/ Ipratropium) 3 ml Q4H PRN HHN Shortness of Breath 04/18/20 15:15 04/23/20 15:14 Apixaban (Eliquis) 2.5 mg BID ORAL 04/18/20 18:00 07/17/20 17:59 04/22/20 09:06 Ascorbic Acid (Vitamin C) 500 mg TWICE A DAY ORAL 04/20/20 18:00 05/20/20 17:59 04/22/20 09:04 Dextrose (Dextrose 50%) 25 ml Q30M PRN IV Hypoglycemia 04/18/20 15:15 07/17/20 15:14 Dextrose (Dextrose 50%) 50 ml Q30M PRN IV Hypoglycemia 04/18/20 15:15 07/17/20 15:14 Dextrose/ Electrolytes 1,000 ml @ 75 mls/hr [id number] IV 04/19/20 11:00 05/19/20 10:59 04/22/20 06:27 Docusate Sodium (Colace) 100 mg TWICE A DAY ORAL 04/21/20 10:30 05/21/20 10:29 04/22/20 09:06 Dronabinol (Marinol) 2.5 mg TID ORAL 04/20/20 19:30 07/19/20 19:29 04/22/20 09:05 Ertapenem 1 gm/ Sodium Chloride 55 ml @ 110 mls/hr Q24H IV 04/21/20 09:00 04/26/20 08:59 04/22/20 09:04 Folic Acid (Folate) 1 mg DAILY ORAL 04/19/20 09:00 05/19/20 08:59 04/22/20 09:05 Metoprolol Tartrate (Lopressor) 5 mg Q5M PRN IVP afib with RVR HR > 120 up 04/18/20 15:15 07/17/20 15:14 Metoprolol Tartrate (Lopressor) 50 mg Q12HR ORAL 04/18/20 21:00 07/17/20 20:59 04/22/20 09:05 Mirtazapine (Remeron) 15 mg BEDTIME ORAL 04/20/20 21:00 07/19/20 20:59 04/21/20 21:05 Multivitamins (Multivitamins) 1 tab DAILY ORAL 04/21/20 09:00 05/21/20 08:59 04/22/20 09:04 Nitroglycerin (Ntg) 0.4 mg Q5M PRN SL Prn Chest Pain 04/18/20 15:15 05/18/20 15:14 Sennosides (Senokot) 8.6 mg DAILY PRN ORAL Constipation 04/21/20 10:30 05/21/20 10:29 Zinc Sulfate (Zinc Sulfate) 220 mg DAILY ORAL 04/21/20 09:00 05/01/20 08:59 04/22/20 09:05 Assessment/Plan Assessment/Plan IMPRESSION: 1. AFib with RVR. 2. Mild dyspnea. 3. Hypertension. DISCUSSION: The patient is doing well from respiratory standpoint. Saturating well on RA Predominant care by Cardiology for rate control. I will follow as desktop engineer. Vitaliy Pichardo Omar Syed MD Apr 22, 2020 10:12
--- NOTE | 2020-04-22 10:13 | Nephrology Progress Note ---
Assessment/Plan Plan #afib with RVR #UTI #Hypokalemia #Hypophos #failure to thrive #HTN #anemia - started drabaniolol - IVF - GI eval - replete lytes - cardiology eval - ertapenem for UTI - meop 50 BID - apixaban 2.5mg BID - monitor lytes - monitor for bleeding time spent 35min Subjective ROS Limited/Unobtainable: Yes Constitutional: Reports: weakness HEENT: Denies: no symptoms, eye pain, blurred vision, tearing, double vision, ear pain, ear discharge, nose pain, nose congestion, throat pain, throat swelling, mouth pain, mouth swelling, other Genitourinary: Denies: no symptoms, burning, discharge, frequency, flank pain, hematuria, incontinence, pain, urgency, other Neurologic/Psychiatric: Denies: no symptoms, anxiety, depressed, emotional problems, headache, numbness, paresthesia, pre-existing deficit, seizure, tingling, tremors, weakness, other Subjective appitite poor refusing to eat started drabinol Objective Objective Last 24 Hour Vital Signs Date Time Temp Pulse Resp B/P (MAP) Pulse Ox O2 Delivery O2 Flow Rate FiO2 04/22/20 09:05 83 135/75 04/22/20 08:00 97.9 83 18 135/75 (95) 98 04/22/20 04:00 97.7 83 16 123/74 (90) 100 04/22/20 04:00 75 04/22/20 00:00 74 04/22/20 00:00 97.7 70 16 123/77 (92) 99 04/21/20 21:18 79 121/78 04/21/20 21:00 Room Air 04/21/20 20:00 97.5 79 20 121/78 (92) 99 04/21/20 20:00 68 04/21/20 16:00 99.0 74 18 130/70 (90) 100 04/21/20 16:00 73 04/21/20 12:00 99.3 75 18 148/76 (100) 99 04/21/20 12:00 77 04/21/20 10:26 91 122/64 Intake and Output 04/21/20 04/22/20 19:00 07:00 Intake Total 300 ml 675 ml Balance 300 ml 675 ml Intake Oral 225 ml IV Total 75 ml 675 ml # Voids 1 3 # Bowel Movements 1 2 Laboratory Tests 04/22/20 05:25: White Blood Count 7.8, Red Blood Count 3.37L, Hemoglobin 11.9L, Hematocrit 38.7, Mean Corpuscular Volume 115H, Mean Corpuscular Hemoglobin 35.4H, Mean Corpuscular Hemoglobin Concent 30.8L, Red Cell Distribution Width 18.9H, Platelet Count 303, Mean Platelet Volume 6.9, Neutrophils (%) (Auto) , Lymphocytes (%) (Auto) , Monocytes (%) (Auto) , Eosinophils (%) (Auto) , Basophils (%) (Auto) , Differential Total Cells Counted 100, Neutrophils % (Manual) 76H, Lymphocytes % (Manual) 19L, Monocytes % (Manual) 5, Eosinophils % (Manual) 0, Basophils % (Manual) 0, Band Neutrophils 0, Platelet Estimate Adequate, Platelet Morphology Normal, Hypochromasia 1+, Anisocytosis 1+, Macrocytosis 1+, Sodium Level 140, Potassium Level 4.5, Chloride Level 110H, Carbon Dioxide Level 23, Anion Gap 7, Blood Urea Nitrogen 3L, Creatinine 0.7, Estimat Glomerular Filtration Rate > 60, Glucose Level 90, Calcium Level 8.5, Total Bilirubin 0.4, Aspartate Amino Transf (AST/SGOT) 23, Alanine Aminotransferase (ALT/SGPT) 12, Alkaline Phosphatase 72, Total Protein 6.0L, Albumin 2.2L, Globulin 3.8, Albumin/Globulin Ratio 0.6L Height (Feet): 5 Height (Inches): 4.00 Weight (Pounds): 120 General Appearance: no apparent distress, lethargic EENT: PERRL/EOMI, normal ENT inspection Neck: non-tender, normal alignment Cardiovascular: normal peripheral pulses, normal rate, regular rhythm Respiratory/Chest: chest wall non-tender, lungs clear Abdomen: normal bowel sounds, non tender, soft Extremities: normal range of motion, non-tender, normal inspection Joanna Salgado M.D. Apr 22, 2020 10:13
--- NOTE | 2020-04-22 10:50 | Cardiology Report ---
APPROVED REPORT EXAM: Two-dimensional and M-mode echocardiogram with Doppler and color Doppler. INDICATION Atrial Fibrillation M-Mode DIMENSIONS IVSd0.5 (0.7-1.1cm)Left Atrium (MM)3.2 (1.6-4.0cm) LVDd3.6 (3.5-5.6cm)Aortic Root3.2 (2.0-3.7cm) PWd0.7 (0.7-1.1cm)Aortic Cusp Exc.1.5 (1.5-2.0cm) IVSs1.0 cm LVDs2.6 (2.5-4.0cm) PWs0.7 cm <Conclusion> Technically difficult study due to pts resitance , patient requested to terminate the study. Normal left ventricular chamber size, systolic function and wall motion to extent visualized. Left ventricular ejection fraction estimated to be 55%. Mild left ventricular hypertrophy by 2-D. Anterior Echo-free space, may be due to pericardial fat or effusion. Mild bi-atrial enlargement. Right ventricular chamber size not well visualized. Moderate focal aortic valve sclerosis with borderline reduced cusp excursion. mitral valve leaflets with normal excursion. Mitral annulus and aortic root calcification. Pulmonic valve not well visualized. Normal tricuspid valve structure. IVC at normal size without physiologic collapse. A color flow and spectral Doppler study was performed and revealed: Trace aortic insufficiency. Peak aortic valve gradient of 14 mm Hg and a mean of 8 mmHg. Mild mitral regurgitation. Moderate to severe tricuspid regurgitation. Tricuspid systolic velocities suggests peak right ventricular systolic pressure of 43mmHg, consistent with mild pulmonary hypertension. No pulmonic insufficiency .
[2020-04-22 12:00] VITALS: BP 125/70
--- NOTE | 2020-04-22 13:45 | Surgery Progress Note ---
Surgery Progress Note Subjective Symptoms: improved, passing flatus, BM Additional Comments comfortable no acute events non/v Objective Last 24 Hour Vital Signs Date Time Temp Pulse Resp B/P (MAP) Pulse Ox O2 Delivery O2 Flow Rate FiO2 04/22/20 09:05 83 135/75 04/22/20 09:00 Room Air 04/22/20 08:00 97.9 83 18 135/75 (95) 98 04/22/20 08:00 88 04/22/20 04:00 97.7 83 16 123/74 (90) 100 04/22/20 04:00 75 04/22/20 00:00 74 04/22/20 00:00 97.7 70 16 123/77 (92) 99 04/21/20 21:18 79 121/78 04/21/20 21:00 Room Air 04/21/20 20:00 97.5 79 20 121/78 (92) 99 04/21/20 20:00 68 04/21/20 16:00 99.0 74 18 130/70 (90) 100 04/21/20 16:00 73 I&O Intake and Output 04/21/20 04/22/20 19:00 07:00 Intake Total 300 ml 675 ml Balance 300 ml 675 ml Intake Oral 225 ml IV Total 75 ml 675 ml # Voids 1 3 # Bowel Movements 1 2 Dressing: saturated Cardiovascular: RSR Respiratory: decreased breath sounds Abdomen: non-tender, present bowel sounds Extremities: no tenderness, no cyanosis Laboratory Tests Test 04/22/20 05:25 White Blood Count 7.8 K/UL (4.8-10.8) Red Blood Count 3.37 M/UL (4.20-5.40) L Hemoglobin 11.9 G/DL (12.0-16.0) L Hematocrit 38.7 % (37.0-47.0) Mean Corpuscular Volume 115 FL (80-99) H Mean Corpuscular Hemoglobin 35.4 PG (27.0-31.0) H Mean Corpuscular Hemoglobin Concent 30.8 G/DL (32.0-36.0) L Red Cell Distribution Width 18.9 % (11.6-14.8) H Platelet Count 303 K/UL (150-450) Mean Platelet Volume 6.9 FL (6.5-10.1) Neutrophils (%) (Auto) % (45.0-75.0) Lymphocytes (%) (Auto) % (20.0-45.0) Monocytes (%) (Auto) % (1.0-10.0) Eosinophils (%) (Auto) % (0.0-3.0) Basophils (%) (Auto) % (0.0-2.0) Differential Total Cells Counted 100 Neutrophils % (Manual) 76 % (45-75) H Lymphocytes % (Manual) 19 % (20-45) L Monocytes % (Manual) 5 % (1-10) Eosinophils % (Manual) 0 % (0-3) Basophils % (Manual) 0 % (0-2) Band Neutrophils 0 % (0-8) Platelet Estimate Adequate Platelet Morphology Normal Hypochromasia 1+ Anisocytosis 1+ Macrocytosis 1+ Sodium Level 140 MMOL/L (136-145) Potassium Level 4.5 MMOL/L (3.5-5.1) Chloride Level 110 MMOL/L (98-107) H Carbon Dioxide Level 23 MMOL/L (21-32) Anion Gap 7 mmol/L (5-15) Blood Urea Nitrogen 3 mg/dL (7-18) L Creatinine 0.7 MG/DL (0.55-1.30) Estimat Glomerular Filtration Rate > 60 mL/min (>60) Glucose Level 90 MG/DL (74-106) Calcium Level 8.5 MG/DL (8.5-10.1) Total Bilirubin 0.4 MG/DL (0.2-1.0) Aspartate Amino Transf (AST/SGOT) 23 U/L (15-37) Alanine Aminotransferase (ALT/SGPT) 12 U/L (12-78) Alkaline Phosphatase 72 U/L (46-116) Total Protein 6.0 G/DL (6.4-8.2) L Albumin 2.2 G/DL (3.4-5.0) L Globulin 3.8 g/dL Albumin/Globulin Ratio 0.6 (1.0-2.7) L Plan Problems: (1) Decubitus skin ulcer Assessment & Plan: [address] [place] [address] facility presented on admission with multiple skin concerns. RIGHT BUTTOCK- STAGE IV PRESSURE ULCER MEASURES 3.0X2.0X0.8CM. WOUND BED WITH 40% YELLOW SLOUGH. NO ODOR. ISABELLA-WOUND SKIN WITH NOTED SCARRING. INTACT AT THIS TIME. RECOMMEND-CLEAN WITH SALINE, PAT DRY, APPLY THERAHONEY AND COVER WITH OPTIFOAM DRESSING. REPLACE DAILY. LEFT BUTTOCK-STAGE II PRESSURE ULCER MEASURES 1.0X1.5X0.2CM. WOUND BED PINK. ISABELLA-WOUND SKIN WITH NOTED SCARRING WELL. INTACT AT THIS TIME. RECOMMEND-CLEAN WITH SALINE, PAT DRY, APPLY TRIAD AND COVER WITH OPTIFOAM DRESSING. REPLACE EVERY OTHER DAY.. LEFT LATERAL HEEL- DARK BROWN ESCHAR MEASURES 2.0X1.0CM WITH DTI SURROUNDING IT. DTI MEASURES 2.5X2.0CM AREA DARK PURPLE IN COLOR AND BOGGY TO TOUCH. RECOMMEND- APPLY CAVILON SKIN PROTECTOR AND COVER WITH OPTIFOAM DRESSING. REPLACE EVERY 3 DAYS. RIGHT HEEL- DTI MEASURES 3.0X1.5CM AREA DARK PURPLE IN COLOR. RECOMMEND- APPLY CAVILON SKIN PROTECTOR AND COVER WITH OPTIFOAM DRESSING. REPLACE EVERY 3 DAYS. Turn Q2H OFF LOAD PRESSURE WITH PILLOWS AIR LOSS MATTRESS NUTRITIONAL OPTIMIZATION (2) Malnutrition Assessment & Plan: nutrition required for wound healing bmi 20 low alb diet as tolerated bowel regimen labs noted will follow with recs DAILY ESTIMATED NEEDS: Needs based on Wound, underweight/ 46.5kg 30-35 kcals/kg 3389-0248 total kcals 1.25-1.5 g protein/kg 58-70 g total protein 25-30 mL/kg [id number] total fluid mLs NUTRITION DIAGNOSIS: * Increased kcal/prot needs R/T wound healing, underweight status as evidenced by admitted w/ multiple wounds, including stage 4 R buttock wound, stage 2 L buttock wound, DTI @ L lateral heel and R heel, pt @ 8% IBW w/ low BMI per guidelines, w/ poor and variable intake noted. * Swallowing difficulty R/T dysphagia as evidenced by pt on pureed texture GRADES 1 THROUGH 5 TEACHER. CURRENT DIET:CARDIAC PO DIET RECOMMENDATIONS: Liberalized regular/ texture per MAINFRAME DEVELOPER ADDITIONAL RECOMMENDATIONS: * Calibrated bedscale wt * Ensure Enlive TID w/ meals * MAINFRAME DEVELOPER eval for appropriate texture and liquid consistency -> pt on pureed texture GRADES 1 THROUGH 5 TEACHER, downgraded to pureed for now * Wound healing: MVI w/ min x1, Vit C 500mg BID, ZnSO4 220mg QD x 10days Saurav BID added to tray (3) UTI (urinary tract infection) (4) Atrial fibrillation with RVR (5) Low back pain (6) ACS (acute coronary syndrome) (7) Toxic metabolic encephalopathy (8) Abdominal distension Assessment & Plan: Nonobstructed bowel gas pattern. MODERATE FECAL RETENTION WITH LARGE STOOL IN THE RECTUM, CORRELATE FOR FECAL IMPACTION. No free intraperitoneal air. The lung bases are clear. Cardiomegaly. Calcification projecting over the right kidney measuring 2.2 x 0.8 cm may represent a stone. enema bowel regimen Refugio Maria Apr 22, 2020 13:45
[2020-04-22 16:00] VITALS: BP 122/72
[2020-04-22 20:00] VITALS: BP 125/75
[2020-04-23] VITALS: BP 111/61
--- NOTE | 2020-04-23 00:08 | Psychiatric Progress Note ---
Psychiatry Progress Note Psychiatry Progress Note Medications Current Medications Medications (Trade) Dose Ordered Sig/Chad Route PRN Reason Start Time Stop Time Status Last Admin Dose Admin Acetaminophen (Tylenol) 650 mg Q4H PRN ORAL Mild Pain (Pain Scale 1-3) 04/18/20 15:15 05/18/20 15:14 Acetaminophen (Tylenol) 650 mg Q4H PRN ORAL Temp >100.5 04/18/20 15:15 05/18/20 15:14 Al Hydroxide/Mg Hydroxide (Mylanta II) 30 ml Q6H PRN ORAL dyspepsia 04/18/20 15:15 05/18/20 15:14 Albuterol/ Ipratropium (Albuterol/ Ipratropium) 3 ml Q4H PRN HHN Shortness of Breath 04/18/20 15:15 04/23/20 15:14 Apixaban (Eliquis) 2.5 mg BID ORAL 04/18/20 18:00 07/17/20 17:59 04/22/20 16:56 Ascorbic Acid (Vitamin C) 500 mg TWICE A DAY ORAL 04/20/20 18:00 05/20/20 17:59 04/22/20 16:56 Dextrose (Dextrose 50%) 25 ml Q30M PRN IV Hypoglycemia 04/18/20 15:15 07/17/20 15:14 Dextrose (Dextrose 50%) 50 ml Q30M PRN IV Hypoglycemia 04/18/20 15:15 07/17/20 15:14 Dextrose/ Electrolytes 1,000 ml @ 75 mls/hr [id number] IV 04/19/20 11:00 05/19/20 10:59 04/22/20 21:40 Docusate Sodium (Colace) 100 mg TWICE A DAY ORAL 04/21/20 10:30 05/21/20 10:29 04/22/20 16:56 Dronabinol (Marinol) 2.5 mg TID ORAL 04/20/20 19:30 07/19/20 19:29 04/22/20 16:56 Ertapenem 1 gm/ Sodium Chloride 55 ml @ 110 mls/hr Q24H IV 04/21/20 09:00 04/26/20 08:59 04/22/20 09:04 Folic Acid (Folate) 1 mg DAILY ORAL 04/19/20 09:00 05/19/20 08:59 04/22/20 09:05 Metoprolol Tartrate (Lopressor) 5 mg Q5M PRN IVP afib with RVR HR > 120 up 04/18/20 15:15 07/17/20 15:14 Metoprolol Tartrate (Lopressor) 50 mg Q12HR ORAL 04/18/20 21:00 07/17/20 20:59 04/22/20 21:40 Mirtazapine (Remeron) 15 mg BEDTIME ORAL 04/20/20 21:00 07/19/20 20:59 04/22/20 21:40 Multivitamins (Multivitamins) 1 tab DAILY ORAL 04/21/20 09:00 05/21/20 08:59 04/22/20 09:04 Nitroglycerin (Ntg) 0.4 mg Q5M PRN SL Prn Chest Pain 04/18/20 15:15 05/18/20 15:14 Sennosides (Senokot) 8.6 mg DAILY PRN ORAL Constipation 04/21/20 10:30 05/21/20 10:29 Zinc Sulfate (Zinc Sulfate) 220 mg DAILY ORAL 04/21/20 09:00 05/01/20 08:59 04/22/20 09:05 Neurological/Psychiatric: Denies: no symptoms, anxiety, depressed, emotional problems, headache, numbness, paresthesia, pre-existing deficit, seizure, tingling, tremors, weakness, other Allergies: Coded Allergies: ADHESIVE TAPE (Unverified Allergy, Unknown, 12/25/16) PENICILLINS (Unverified Allergy, Unknown, 12/25/16) Uncoded Allergies: PENICILLIN (Allergy, Unknown, 12/25/16) Objective Data Height (Feet): 5 Height (Inches): 4.00 Weight (Pounds): 120 General Appearance: no apparent distress, alert, alert oriented x3 Esa De La Cruz MD Apr 23, 2020 00:08
[2020-04-23 04:00] VITALS: BP 115/63
[2020-04-23 07:08] LABS: ANION GAP 8 mmol/L (5-15); BLOOD UREA NITROGEN 3 mg/dL (7-18); CALCIUM 8.6 MG/DL (8.5-10.1); CARBON DIOXIDE 23 MMOL/L (21-32); CHLORIDE 110 MMOL/L (98-107); CREATININE 0.7 MG/DL (0.55-1.30); PHOSPHORUS 2.9 MG/DL (2.5-4.9); POTASSIUM 4.7 MMOL/L (3.5-5.1); SODIUM 141 MMOL/L (136-145)
--- NOTE | 2020-04-23 07:29 | Consultation ---
DATE OF CONSULTATION: 04/23/2020 CONSULTING PHYSICIAN: Sterling Christianson MD. REFERRING PHYSICIAN: Rafal Oliver MD. CHIEF COMPLAINT: Failure to thrive. HISTORY OF PRESENT ILLNESS: This 80-year-old intermediate patient was transferred to the hospital with complaint of weakness was found to be in atrial fibrillation. The patient is not eating, so GI consult requested for evaluation. PAST MEDICAL HISTORY: 1. Hypertension. 2. Atrial fibrillation. 3. Carotid artery aneurysm. ALLERGIES: Penicillin and adhesive tapes. MEDICATIONS: Please see medication reconciliation list. SOCIAL HISTORY: Currently lives in a intermediate. No recent history of tobacco, alcohol, or drug abuse. FAMILY HISTORY: Noncontributory. REVIEW OF SYSTEMS: Limited. PHYSICAL EXAMINATION: VITAL SIGNS: Temperature is 97.7, pulse 81, respirations 20, and blood pressure is 111/61. HEENT: Normocephalic, atraumatic. Sclerae anicteric. NECK: Supple. No evidence of obvious lymphadenopathy. CARDIOVASCULAR: Irregularly irregular. Plus S1, S2. LUNGS: Reveals some bilaterally diffusely on the supine exam. ABDOMEN: Soft, nontender. No rebound. No peritoneal sign. EXTREMITIES: No cyanosis, no clubbing, no edema. LABORATORY DATA: White count 7.8, hemoglobin 11.9, platelet count is 303. Chem-7, sodium 140, potassium 4.5, creatinine is 0.7. ASSESSMENT AND PLAN: This 80-year-old female with atrial fibrillation, carotid artery aneurysm, hypertension, admitted to the hospital with atrial fibrillation. She is not eating well, currently on the Remeron and Marinol 2.5 mg b.i.d. with still having a poor p.o. intake. According to the nurses at the bedside, the patient has been refusing to have food. Our plan will be to continue give her Remeron, increase the Marinol to 5 mg b.i.d., add Ensure 3 cans t.i.d. Monitor p.o. intake. Continue commutating the family regarding G-tube placement. Apparently, family refusing right now. If the family agrees for the patient to have a G-tube placement, we have to hold Eliquis for two days and then schedule it. Sterling Vitaliy Christianson DR: Vinny JOB#: [id number] CC: MARCIO
[2020-04-23 08:00] VITALS: BP 127/67
[2020-04-23] MEDS: Ertapenem 1gm in NS 55ml IV SCH (08:42)
[2020-04-23] MEDS: Dronabinol 2.5mg Cap ORAL SCH ×3 (08:43→18:00)
[2020-04-23] MEDS: Metoprolol Tartrate 50mg tab ORAL SCH ×2 (08:43→21:07)
[2020-04-23] MEDS: Docusate 100mg cap ORAL SCH ×2 (08:43→18:00)
[2020-04-23] MEDS: Ascorbic Acid 500mg tab ORAL SCH ×2 (08:43→18:00)
[2020-04-23] MEDS: Eliquis 2.5mg tablet ORAL SCH ×2 (08:43→18:00)
[2020-04-23] MEDS: Zinc Sulfate 220mg ORAL SCH (08:43)
--- NOTE | 2020-04-23 09:09 | General Progress Note ---
Subjective Date patient seen: Apr 23, 2020 ROS Limited/Unobtainable: No Allergies: Coded Allergies: ADHESIVE TAPE (Unverified Allergy, Unknown, 12/25/16) PENICILLINS (Unverified Allergy, Unknown, 12/25/16) Uncoded Allergies: PENICILLIN (Allergy, Unknown, 12/25/16) Subjective Constitutional: Denies: no symptoms, chills, diaphoresis, fever, malaise, weakness, other HEENT: Denies: no symptoms, eye pain, blurred vision, tearing, double vision, ear pain, ear discharge, nose pain, nose congestion, throat pain, throat swelling, mouth pain, mouth swelling, other Cardiovascular: Denies: no symptoms, chest pain, edema, irregular heart rate, lightheadedness, palpitations, syncope, other Respiratory: Denies: no symptoms, cough, orthopnea, shortness of breath, SOB with excertion, SOB at rest, sputum, stridor, wheezing, other Gastrointestinal/Abdominal: Denies: no symptoms, abdomen distended, abdominal pain, black stools, tarry stools, blood in stool, constipated, diarrhea, difficulty swallowing, nausea, poor appetite, poor fluid intake, rectal bleed ing, vomiting, other Genitourinary: Denies: no symptoms, burning, discharge, frequency, flank pain, hematuria, incontinence, pain, urgency, other Neurologic/Psychiatric: Denies: no symptoms, anxiety, depressed, emotional problems, headache, numbness, paresthesia, pre-existing deficit, seizure, tingling, tremors, weakness, other Endocrine: Denies: no symptoms, excessive sweating, flushing, intolerance to cold, intolerance to heat, increased hunger, increased thirst, increased urine, unexplained weight gain, unexplained weight loss, other Hematologic/Lymphatic: Denies: no symptoms, anemia, easy bleeding, easy bruising, other Interval events: no acute events overnight Today patient feels like she is eating enough food, but in discussion with nurse, reports that patient is eating less than 10% of meals. Patient unsure if she wants PEG, will consider after family discussion. Denies abdominal pain, chest pain, SOB, fever, chills, N/V/D. Objective Last 24 Hour Vital Signs Date Time Temp Pulse Resp B/P (MAP) Pulse Ox O2 Delivery O2 Flow Rate FiO2 04/23/20 08:43 65 127/67 11/24/20 08:00 97.4 65 20 127/67 (87) 97 04/23/20 04:00 97.7 79 18 115/63 (80) 98 04/23/20 04:00 81 04/23/20 00:00 97.7 81 20 111/61 (78) 98 04/23/20 00:00 77 04/22/20 21:40 80 125/75 04/22/20 21:00 Room Air 04/22/20 20:00 74 04/22/20 20:00 98.8 80 18 125/75 (92) 99 04/22/20 16:00 75 04/22/20 16:00 99.0 77 18 122/72 (89) 98 04/22/20 12:00 90 04/22/20 12:00 98.9 93 20 125/70 (88) 98 Intake and Output 04/22/20 04/23/20 19:00 07:00 Intake Total 180 ml 90 ml Balance 180 ml 90 ml Intake Oral 180 ml 90 ml # Voids 2 2 Laboratory Tests 04/23/20 06:00: Sodium Level 141, Potassium Level 4.7, Chloride Level 110H, Carbon Dioxide Level 23, Anion Gap 8, Blood Urea Nitrogen 3L, Creatinine 0.7, Estimat Glomerular Filtration Rate > 60, Glucose Level 90, Calcium Level 8.6, Phosphorus Level 2.9, Magnesium Level 1.8 Height (Feet): 5 Height (Inches): 4.00 Weight (Pounds): 120 Objective General Appearance: no apparent distress, alert, alert oriented x3, awake, conversant EENT: PERRL/EOMI Neck: normal alignment, supple Cardiovascular: normal rate, regular rhythm, no JVD Respiratory/Chest: lungs clear, normal breath sounds, no respiratory distress Abdomen: normal bowel sounds, non tender, soft Extremities: non-tender Edema: no edema noted Arm (L), no edema noted Arm (R), no edema noted Leg (L), no edema noted Leg (R), no edema noted Pedal (L), no edema noted Pedal (R), no edema noted Generalized Neurologic: retort unloader II-XII grossly normal, alert, oriented x 3 Skin: normal pigmentation, warm/dry Assessment/Plan Assessment/Plan: Mrs. Tobar is an 80-year-old female past medical history of A. fib, hypertension, carotid artery aneurysm is presenting from SNF for generalized weakness. A: #Atrial fibrillation with rapid ventricular heart rate 2/2 possible infectious etiology #Failure to thrive #UTI with ESBL E. coli #Mild pulmonary hypertension possibly class I #Essential hypertension #Carotid artery aneurysm #Poor oral intake #Constipation P: Currently hemodynamically stable Continue metoprolol 50 mg twice daily On Eliquis 2.5 mg BID Continue ertapenem for ESBL E. coli UTI IVF Replace folic acid deficiency Nutritional consult Continue Remeron and Marinol Status post Fleet enema Patient still considering PEG placement and there is discrepancy between patient's stated appetite for food and actual consumption of calories Continue Colace, senna Consult Dr. Calvo, cardiology, recs appreciated Consult Dr. Salgado, nephrology, recs appreciated - Consult Dr. Christianson, GI, recs appreciated CM Code: DO NOT INTUBATE GI: None DVT prophylaxis: Eliquis Diet: Cardiac Dispo: Possible discharge back to SNF tomorrow if patient shows increased oral intake today, pending decision on PEG Time spent on this encounter was 36 minutes which included 24 minutes of counseling and care coordination. I discussed with the nurse at bedside. Time of note may not reflect time patient was seen. Porter Jones M.D. Apr 23, 2020 09:09
--- NOTE | 2020-04-23 09:33 | Pulmonology Progress Note ---
Subjective ROS Limited/Unobtainable: No Interval Events: None new Constitutional: Reports: no symptoms HEENT: Repors: no symptoms Respiratory: Reports: no symptoms Cardiovascular: Reports: no symptoms Gastrointestinal/Abdominal: Reports: no symptoms Allergies: Coded Allergies: ADHESIVE TAPE (Unverified Allergy, Unknown, 12/25/16) PENICILLINS (Unverified Allergy, Unknown, 12/25/16) Uncoded Allergies: PENICILLIN (Allergy, Unknown, 12/25/16) Objective Last 24 Hour Vital Signs Date Time Temp Pulse Resp B/P (MAP) Pulse Ox O2 Delivery O2 Flow Rate FiO2 04/23/20 08:43 65 127/67 04/23/20 08:00 97.4 65 20 127/67 (87) 97 04/23/20 04:00 97.7 79 18 115/63 (80) 98 04/23/20 04:00 81 04/23/20 00:00 97.7 81 20 111/61 (78) 98 04/23/20 00:00 77 04/22/20 21:40 80 125/75 04/22/20 21:00 Room Air 04/22/20 20:00 74 04/22/20 20:00 98.8 80 18 125/75 (92) 99 04/22/20 16:00 75 04/22/20 16:00 99.0 77 18 122/72 (89) 98 04/22/20 12:00 90 04/22/20 12:00 98.9 93 20 125/70 (88) 98 Intake and Output 04/22/20 04/23/20 19:00 07:00 Intake Total 180 ml 90 ml Balance 180 ml 90 ml Intake Oral 180 ml 90 ml # Voids 2 2 General Appearance: no acute distress HEENT: normocephalic Respiratory: chest wall non-tender, lungs clear Cardiovascular: normal peripheral pulses Abdomen: normal bowel sounds Microbiology Date/Time Source Procedure Growth Status 04/21/20 15:47 Nasopharynx Coronavirus COVID-19 PCR ([facility]) - Final Complete Laboratory Tests 04/23/20 06:00: Sodium Level 141, Potassium Level 4.7, Chloride Level 110H, Carbon Dioxide Level 23, Anion Gap 8, Blood Urea Nitrogen 3L, Creatinine 0.7, Estimat Glomerular Filtration Rate > 60, Glucose Level 90, Calcium Level 8.6, Phosphorus Level 2.9, Magnesium Level 1.8 Current Medications Medications (Trade) Dose Ordered Sig/Chad Route PRN Reason Start Time Stop Time Status Last Admin Dose Admin Acetaminophen (Tylenol) 650 mg Q4H PRN ORAL Mild Pain (Pain Scale 1-3) 04/18/20 15:15 05/18/20 15:14 Acetaminophen (Tylenol) 650 mg Q4H PRN ORAL Temp >100.5 04/18/20 15:15 05/18/20 15:14 Al Hydroxide/Mg Hydroxide (Mylanta II) 30 ml Q6H PRN ORAL dyspepsia 04/18/20 15:15 05/18/20 15:14 Albuterol/ Ipratropium (Albuterol/ Ipratropium) 3 ml Q4H PRN HHN Shortness of Breath 04/18/20 15:15 04/23/20 15:14 Apixaban (Eliquis) 2.5 mg BID ORAL 04/18/20 18:00 07/17/20 17:59 04/23/20 08:43 Ascorbic Acid (Vitamin C) 500 mg TWICE A DAY ORAL 04/20/20 18:00 05/20/20 17:59 04/23/20 08:43 Dextrose (Dextrose 50%) 25 ml Q30M PRN IV Hypoglycemia 04/18/20 15:15 07/17/20 15:14 Dextrose (Dextrose 50%) 50 ml Q30M PRN IV Hypoglycemia 04/18/20 15:15 07/17/20 15:14 Dextrose/ Electrolytes 1,000 ml @ 75 mls/hr [id number] IV 04/19/20 11:00 05/19/20 10:59 04/22/20 21:40 Docusate Sodium (Colace) 100 mg TWICE A DAY ORAL 04/21/20 10:30 05/21/20 10:29 04/23/20 08:43 Dronabinol (Marinol) 5 mg TID ORAL 04/23/20 09:00 07/19/20 08:59 04/23/20 08:43 Ertapenem 1 gm/ Sodium Chloride 55 ml @ 110 mls/hr Q24H IV 04/21/20 09:00 04/23/20 23:59 04/23/20 08:42 Folic Acid (Folate) 1 mg DAILY ORAL 04/19/20 09:00 05/19/20 08:59 04/23/20 08:43 Metoprolol Tartrate (Lopressor) 5 mg Q5M PRN IVP afib with RVR HR > 120 up 04/18/20 15:15 07/17/20 15:14 Metoprolol Tartrate (Lopressor) 50 mg Q12HR ORAL 04/18/20 21:00 07/17/20 20:59 04/23/20 08:43 Mirtazapine (Remeron) 15 mg BEDTIME ORAL 04/20/20 21:00 07/19/20 20:59 04/22/20 21:40 Multivitamins (Multivitamins) 1 tab DAILY ORAL 04/21/20 09:00 05/21/20 08:59 04/23/20 08:43 Nitroglycerin (Ntg) 0.4 mg Q5M PRN SL Prn Chest Pain 04/18/20 15:15 05/18/20 15:14 Sennosides (Senokot) 8.6 mg DAILY PRN ORAL Constipation 04/21/20 10:30 05/21/20 10:29 Zinc Sulfate (Zinc Sulfate) 220 mg DAILY ORAL 04/21/20 09:00 05/01/20 08:59 04/23/20 08:43 Assessment/Plan Assessment/Plan IMPRESSION: 1. AFib with RVR. 2. Mild dyspnea. 3. Hypertension. DISCUSSION: The patient is doing well from respiratory standpoint. Saturating well on RA Predominant care by Cardiology for rate control. I will follow as manager resource. Vitaliy Pichardo Omar Syed MD Apr 23, 2020 09:33
[2020-04-23] MEDS: D5 1/2NS w/KCl 20mEq 1,000 ML IV SCH (10:54)
--- NOTE | 2020-04-23 10:55 | Surgery Progress Note ---
Surgery Progress Note Subjective Symptoms: improved, passing flatus, BM Objective Last 24 Hour Vital Signs Date Time Temp Pulse Resp B/P (MAP) Pulse Ox O2 Delivery O2 Flow Rate FiO2 04/23/20 08:43 65 127/67 04/23/20 08:00 97.4 65 20 127/67 (87) 97 04/23/20 07:18 85 16 100 Room Air 21 04/23/20 04:00 97.7 79 18 115/63 (80) 98 04/23/20 04:00 81 04/23/20 00:00 97.7 81 20 111/61 (78) 98 04/23/20 00:00 77 04/22/20 21:40 80 125/75 04/22/20 21:00 Room Air 04/22/20 20:00 74 04/22/20 20:00 98.8 80 18 125/75 (92) 99 04/22/20 16:00 75 04/22/20 16:00 99.0 77 18 122/72 (89) 98 04/22/20 12:00 90 04/22/20 12:00 98.9 93 20 125/70 (88) 98 I&O Intake and Output 04/22/20 04/23/20 19:00 07:00 Intake Total 180 ml 90 ml Balance 180 ml 90 ml Intake Oral 180 ml 90 ml # Voids 2 2 Dressing: saturated Cardiovascular: RSR Respiratory: clear, decreased breath sounds Abdomen: non-tender, present bowel sounds, non-distended Extremities: no tenderness, no cyanosis Laboratory Tests Test 04/23/20 06:00 Sodium Level 141 MMOL/L (136-145) Potassium Level 4.7 MMOL/L (3.5-5.1) Chloride Level 110 MMOL/L (98-107) H Carbon Dioxide Level 23 MMOL/L (21-32) Anion Gap 8 mmol/L (5-15) Blood Urea Nitrogen 3 mg/dL (7-18) L Creatinine 0.7 MG/DL (0.55-1.30) Estimat Glomerular Filtration Rate > 60 mL/min (>60) Glucose Level 90 MG/DL (74-106) Calcium Level 8.6 MG/DL (8.5-10.1) Phosphorus Level 2.9 MG/DL (2.5-4.9) Magnesium Level 1.8 MG/DL (1.8-2.4) Plan Problems: (1) Decubitus skin ulcer Assessment & Plan: [address] [place] [address] facility presented on admission with multiple skin concerns. RIGHT BUTTOCK- STAGE IV PRESSURE ULCER MEASURES 3.0X2.0X0.8CM. WOUND BED WITH 40% YELLOW SLOUGH. NO ODOR. ISABELLA-WOUND SKIN WITH NOTED SCARRING. INTACT AT THIS TIME. RECOMMEND-CLEAN WITH SALINE, PAT DRY, APPLY THERAHONEY AND COVER WITH OPTIFOAM DRESSING. REPLACE DAILY. LEFT BUTTOCK-STAGE II PRESSURE ULCER MEASURES 1.0X1.5X0.2CM. WOUND BED PINK. ISABELLA-WOUND SKIN WITH NOTED SCARRING WELL. INTACT AT THIS TIME. RECOMMEND-CLEAN WITH SALINE, PAT DRY, APPLY TRIAD AND COVER WITH OPTIFOAM DRESSING. REPLACE EVERY OTHER DAY.. LEFT LATERAL HEEL- DARK BROWN ESCHAR MEASURES 2.0X1.0CM WITH DTI SURROUNDING IT. DTI MEASURES 2.5X2.0CM AREA DARK PURPLE IN COLOR AND BOGGY TO TOUCH. RECOMMEND- APPLY CAVILON SKIN PROTECTOR AND COVER WITH OPTIFOAM DRESSING. REPLACE EVERY 3 DAYS. RIGHT HEEL- DTI MEASURES 3.0X1.5CM AREA DARK PURPLE IN COLOR. RECOMMEND- APPLY CAVILON SKIN PROTECTOR AND COVER WITH OPTIFOAM DRESSING. REPLACE EVERY 3 DAYS. Turn Q2H OFF LOAD PRESSURE WITH PILLOWS AIR LOSS MATTRESS NUTRITIONAL OPTIMIZATION (2) Malnutrition Assessment & Plan: nutrition required for wound healing bmi 20 low alb diet as tolerated bowel regimen labs noted will follow with recs DAILY ESTIMATED NEEDS: Needs based on Wound, underweight/ 46.5kg 30-35 kcals/kg 4061-0649 total kcals 1.25-1.5 g protein/kg 58-70 g total protein 25-30 mL/kg 4265-1384 total fluid mLs NUTRITION DIAGNOSIS: * Increased kcal/prot needs R/T wound healing, underweight status as evidenced by admitted w/ multiple wounds, including stage 4 R buttock wound, stage 2 L buttock wound, DTI @ L lateral heel and R heel, pt @ 8% IBW w/ low BMI per guidelines, w/ poor and variable intake noted. * Swallowing difficulty R/T dysphagia as evidenced by pt on pureed texture INFANTRY UNIT LEADER. CURRENT DIET:CARDIAC PO DIET RECOMMENDATIONS: Liberalized regular/ texture per CLAM TREADER ADDITIONAL RECOMMENDATIONS: * Calibrated bedscale wt * Ensure Enlive TID w/ meals * CLAM TREADER eval for appropriate texture and liquid consistency -> pt on pureed texture INFANTRY UNIT LEADER, downgraded to pureed for now * Wound healing: MVI w/ min x1, Vit C 500mg BID, ZnSO4 220mg QD x 10days Saurav BID added to tray (3) UTI (urinary tract infection) (4) Atrial fibrillation with RVR (5) Low back pain (6) ACS (acute coronary syndrome) (7) Toxic metabolic encephalopathy (8) Abdominal distension Assessment & Plan: Nonobstructed bowel gas pattern. MODERATE FECAL RETENTION WITH LARGE STOOL IN THE RECTUM, CORRELATE FOR FECAL IMPACTION. No free intraperitoneal air. The lung bases are clear. Cardiomegaly. Calcification projecting over the right kidney measuring 2.2 x 0.8 cm may represent a stone. enema bowel regimen Refugio Maria Apr 23, 2020 10:55
[2020-04-23 12:00] VITALS: BP 121/88
--- NOTE | 2020-04-23 12:26 | Cardiac Electrophysiology PN ---
Assessment/Plan Assessment/Plan 1. Atrial fibrillation rapid ventricular response. Etiology is not clear. Continue metoprolol 50 mg b.i.d. and Eliquis 5 mg b.i.d. 2. Inferolateral ischemia on 12-lead EKG. Likely due to Atrial fibrillation with rapid ventricular response. Ruled out for GA EF 55% 3. Failure to thrive. Refused PEG placement. 4. History of carotid artery aneurysm. 5. Hypertension. Continue on metoprolol. MYAH RN Subjective Subjective More alert in NAD. Off isolation. No restraints. Poor intake on RA Objective Last 24 Hour Vital Signs Date Time Temp Pulse Resp B/P (MAP) Pulse Ox O2 Delivery O2 Flow Rate FiO2 04/23/20 08:43 65 127/67 04/23/20 08:00 97.4 65 20 127/67 (87) 97 04/23/20 07:18 85 16 100 Room Air 21 04/23/20 04:00 97.7 79 18 115/63 (80) 98 04/23/20 04:00 81 04/23/20 00:00 97.7 81 20 111/61 (78) 98 04/23/20 00:00 77 04/22/20 21:40 80 125/75 04/22/20 21:00 Room Air 04/22/20 20:00 74 04/22/20 20:00 98.8 80 18 125/75 (92) 99 04/22/20 16:00 75 04/22/20 16:00 99.0 77 18 122/72 (89) 98 Intake and Output 04/22/20 04/23/20 19:00 07:00 Intake Total 180 ml 90 ml Balance 180 ml 90 ml Intake Oral 180 ml 90 ml # Voids 2 2 Laboratory Tests Test 04/23/20 06:00 Sodium Level 141 MMOL/L (136-145) Potassium Level 4.7 MMOL/L (3.5-5.1) Chloride Level 110 MMOL/L (98-107) H Carbon Dioxide Level 23 MMOL/L (21-32) Anion Gap 8 mmol/L (5-15) Blood Urea Nitrogen 3 mg/dL (7-18) L Creatinine 0.7 MG/DL (0.55-1.30) Estimat Glomerular Filtration Rate > 60 mL/min (>60) Glucose Level 90 MG/DL (74-106) Calcium Level 8.6 MG/DL (8.5-10.1) Phosphorus Level 2.9 MG/DL (2.5-4.9) Magnesium Level 1.8 MG/DL (1.8-2.4) Microbiology Date/Time Source Procedure Growth Status 04/21/20 15:47 Nasopharynx Coronavirus COVID-19 PCR ([facility]) - Final Complete Objective HEAD AND NECK: No JVD. LUNGS: Clear. CARDIOVASCULAR: Irregular S1 and S2 with no gallop or murmur. ABDOMEN: Soft. EXTREMITIES: No pitting edema. Angel Calvo MD Apr 23, 2020 12:26
--- NOTE | 2020-04-23 13:16 | Nephrology Progress Note ---
Assessment/Plan Plan #afib with RVR #UTI #Hypokalemia #Hypophos #failure to thrive #HTN #anemia - started drabaniolol - IVF - GI eval - replete lytes - cardiology eval - ertapenem for UTI - meop 50 BID - apixaban 2.5mg BID - monitor lytes - monitor for bleeding time spent 35min Subjective ROS Limited/Unobtainable: No Constitutional: Reports: weakness HEENT: Denies: no symptoms, eye pain, blurred vision, tearing, double vision, ear pain, ear discharge, nose pain, nose congestion, throat pain, throat swelling, mouth pain, mouth swelling, other Genitourinary: Denies: no symptoms, burning, discharge, frequency, flank pain, hematuria, incontinence, pain, urgency, other Neurologic/Psychiatric: Denies: no symptoms, anxiety, depressed, emotional problems, headache, numbness, paresthesia, pre-existing deficit, seizure, tingling, tremors, weakness, other Subjective appitite poor refusing to eat started drabinol Objective Objective Last 24 Hour Vital Signs Date Time Temp Pulse Resp B/P (MAP) Pulse Ox O2 Delivery O2 Flow Rate FiO2 04/23/20 12:00 84 04/23/20 08:43 65 127/67 04/23/20 08:00 97.4 65 20 127/67 (87) 97 04/23/20 08:00 77 04/23/20 07:18 85 16 100 Room Air 21 04/23/20 04:00 97.7 79 18 115/63 (80) 98 04/23/20 04:00 81 04/23/20 00:00 97.7 81 20 111/61 (78) 98 04/23/20 00:00 77 04/22/20 21:40 80 125/75 04/22/20 21:00 Room Air 04/22/20 20:00 74 04/22/20 20:00 98.8 80 18 125/75 (92) 99 04/22/20 16:00 75 04/22/20 16:00 99.0 77 18 122/72 (89) 98 Intake and Output 04/22/20 04/23/20 19:00 07:00 Intake Total 180 ml 90 ml Balance 180 ml 90 ml Intake Oral 180 ml 90 ml # Voids 2 2 Laboratory Tests 04/23/20 06:00: Sodium Level 141, Potassium Level 4.7, Chloride Level 110H, Carbon Dioxide Level 23, Anion Gap 8, Blood Urea Nitrogen 3L, Creatinine 0.7, Estimat Glomerular Filtration Rate > 60, Glucose Level 90, Calcium Level 8.6, Phosphorus Level 2.9, Magnesium Level 1.8 Height (Feet): 5 Height (Inches): 4.00 Weight (Pounds): 120 Joanna Salgado M.D. Apr 23, 2020 13:16
[2020-04-23 16:00] VITALS: BP 102/58
[2020-04-23 20:00] VITALS: BP 102/63
[2020-04-24] VITALS: BP 105/62
[2020-04-24] MEDS: D5 1/2NS w/KCl 20mEq 1,000 ML IV SCH ×2 (00:57→12:28)
[2020-04-24 04:00] VITALS: BP 99/66
[2020-04-24 08:00] VITALS: BP 114/61
--- NOTE | 2020-04-24 09:20 | General Progress Note ---
Subjective ROS Limited/Unobtainable: No Allergies: Coded Allergies: ADHESIVE TAPE (Unverified Allergy, Unknown, 12/25/16) PENICILLINS (Unverified Allergy, Unknown, 12/25/16) Uncoded Allergies: PENICILLIN (Allergy, Unknown, 12/25/16) Objective Last 24 Hour Vital Signs Date Time Temp Pulse Resp B/P (MAP) Pulse Ox O2 Delivery O2 Flow Rate FiO2 04/24/20 08:00 97.9 70 18 114/61 (78) 91 04/24/20 04:00 98.7 70 18 99/66 (77) 91 04/24/20 04:00 78 04/24/20 00:00 75 04/24/20 00:00 98.5 71 20 105/62 (76) 93 04/23/20 21:07 72 102/63 04/23/20 21:00 Room Air 04/23/20 20:00 75 04/23/20 20:00 97.9 74 22 102/63 (76) 100 04/23/20 19:00 83 16 100 Room Air 21 04/23/20 16:00 97.9 64 20 102/58 (73) 100 04/23/20 16:00 88 04/23/20 12:00 84 04/23/20 12:00 97.5 94 20 121/88 (99) 100 Intake and Output 04/23/20 04/24/20 19:00 07:00 Intake Total 75 ml 828.75 ml Balance 75 ml 828.75 ml IV Total 75 ml 828.75 ml Height (Feet): 5 Height (Inches): 4.00 Weight (Pounds): 120 General Appearance: alert EENT: normal ENT inspection Neck: normal alignment Cardiovascular: normal rate Respiratory/Chest: decreased breath sounds Abdomen: hypoactive bowel sounds Extremities: non-tender Assessment/Plan Assessment/Plan: afib with RVR UTI Hypokalemia failure to thrive HTN anemia on marinol and remeron still very poor po intake spoke with her daughter, she is almost sad yes to PEG but wants to talk to the rest of family Sterling Christianson MD Apr 24, 2020 09:20
[2020-04-24] MEDS: Zinc Sulfate 220mg ORAL SCH (09:50)
[2020-04-24] MEDS: Eliquis 2.5mg tablet ORAL SCH (09:50)
[2020-04-24] MEDS: Metoprolol Tartrate 50mg tab ORAL SCH ×2 (09:50→22:01)
[2020-04-24] MEDS: Docusate 100mg cap ORAL SCH ×2 (09:50→18:03)
[2020-04-24] MEDS: Dronabinol 2.5mg Cap ORAL SCH ×3 (09:51→18:04)
[2020-04-24] MEDS: Ascorbic Acid 500mg tab ORAL SCH ×2 (09:51→18:04)
--- NOTE | 2020-04-24 10:01 | Pulmonology Progress Note ---
Subjective ROS Limited/Unobtainable: No Interval Events: None new Constitutional: Reports: no symptoms HEENT: Repors: no symptoms Respiratory: Reports: no symptoms Cardiovascular: Reports: no symptoms Gastrointestinal/Abdominal: Reports: no symptoms Allergies: Coded Allergies: ADHESIVE TAPE (Unverified Allergy, Unknown, 12/25/16) PENICILLINS (Unverified Allergy, Unknown, 12/25/16) Uncoded Allergies: PENICILLIN (Allergy, Unknown, 12/25/16) Objective Last 24 Hour Vital Signs Date Time Temp Pulse Resp B/P (MAP) Pulse Ox O2 Delivery O2 Flow Rate FiO2 04/24/20 09:50 70 114/61 04/24/20 08:00 97.9 70 18 114/61 (78) 91 04/24/20 04:00 98.7 70 18 99/66 (77) 91 04/24/20 04:00 78 04/24/20 00:00 75 04/24/20 00:00 98.5 71 20 105/62 (76) 93 04/23/20 21:07 72 102/63 04/23/20 21:00 Room Air 04/23/20 20:00 75 04/23/20 20:00 97.9 74 22 102/63 (76) 100 04/23/20 19:00 83 16 100 Room Air 21 04/23/20 16:00 97.9 64 20 102/58 (73) 100 04/23/20 16:00 88 04/23/20 12:00 84 04/23/20 12:00 97.5 94 20 121/88 (99) 100 Intake and Output 04/23/20 04/24/20 19:00 07:00 Intake Total 75 ml 828.75 ml Balance 75 ml 828.75 ml IV Total 75 ml 828.75 ml General Appearance: no acute distress HEENT: normocephalic Respiratory: chest wall non-tender, lungs clear Cardiovascular: normal peripheral pulses Abdomen: normal bowel sounds Microbiology Date/Time Source Procedure Growth Status 04/21/20 15:47 Nasopharynx Coronavirus COVID-19 PCR ([facility]) - Final Complete Current Medications Medications (Trade) Dose Ordered Sig/Chad Route PRN Reason Start Time Stop Time Status Last Admin Dose Admin Acetaminophen (Tylenol) 650 mg Q4H PRN ORAL Mild Pain (Pain Scale 1-3) 04/18/20 15:15 05/18/20 15:14 Acetaminophen (Tylenol) 650 mg Q4H PRN ORAL Temp >100.5 04/18/20 15:15 05/18/20 15:14 Al Hydroxide/Mg Hydroxide (Mylanta II) 30 ml Q6H PRN ORAL dyspepsia 04/18/20 15:15 05/18/20 15:14 Apixaban (Eliquis) 2.5 mg BID ORAL 04/18/20 18:00 07/17/20 17:59 04/24/20 09:50 Ascorbic Acid (Vitamin C) 500 mg TWICE A DAY ORAL 04/20/20 18:00 05/20/20 17:59 04/24/20 09:51 Dextrose (Dextrose 50%) 25 ml Q30M PRN IV Hypoglycemia 04/18/20 15:15 07/17/20 15:14 Dextrose (Dextrose 50%) 50 ml Q30M PRN IV Hypoglycemia 04/18/20 15:15 07/17/20 15:14 Dextrose/ Electrolytes 1,000 ml @ 75 mls/hr [id number] IV 04/19/20 11:00 05/19/20 10:59 04/24/20 00:57 Docusate Sodium (Colace) 100 mg TWICE A DAY ORAL 04/21/20 10:30 05/21/20 10:29 04/24/20 09:50 Dronabinol (Marinol) 5 mg TID ORAL 04/23/20 09:00 07/19/20 08:59 04/24/20 09:51 Folic Acid (Folate) 1 mg DAILY ORAL 04/19/20 09:00 05/19/20 08:59 04/24/20 09:50 Metoprolol Tartrate (Lopressor) 5 mg Q5M PRN IVP afib with RVR HR > 120 up 04/18/20 15:15 07/17/20 15:14 Metoprolol Tartrate (Lopressor) 50 mg Q12HR ORAL 04/18/20 21:00 07/17/20 20:59 04/24/20 09:50 Mirtazapine (Remeron) 15 mg BEDTIME ORAL 04/20/20 21:00 07/19/20 20:59 04/23/20 21:07 Multivitamins (Multivitamins) 1 tab DAILY ORAL 04/21/20 09:00 05/21/20 08:59 04/24/20 09:51 Nitroglycerin (Ntg) 0.4 mg Q5M PRN SL Prn Chest Pain 04/18/20 15:15 05/18/20 15:14 Sennosides (Senokot) 8.6 mg DAILY PRN ORAL Constipation 04/21/20 10:30 05/21/20 10:29 Zinc Sulfate (Zinc Sulfate) 220 mg DAILY ORAL 04/21/20 09:00 05/01/20 08:59 04/24/20 09:50 Assessment/Plan Assessment/Plan IMPRESSION: 1. AFib with RVR. 2. Mild dyspnea. 3. Hypertension. DISCUSSION: The patient is doing well from respiratory standpoint. Saturating well on RA; currently 91% Predominant care by Cardiology for rate control. I will follow as pediatric radiologist. Vitaliy Pichardo Omar Syed MD Apr 24, 2020 10:01
[2020-04-24 12:00] VITALS: BP 139/79
[2020-04-24] MEDS ORDERED: Dronabinol ORAL (12:43)
[2020-04-24] MEDS ORDERED: MULTIVITAMINS1 EAC2 ORAL (12:43)
[2020-04-24] MEDS ORDERED: NITRO0.4 SL (12:43)
[2020-04-24] MEDS ORDERED: ZINC SULFATE220 M2 ORAL (12:43)
[2020-04-24] MEDS ORDERED: MIRTAZAPINE15 M3 ORAL (12:43)
[2020-04-24] MEDS ORDERED: FOLIC ACID1 MG ORAL (12:43)
[2020-04-24] MEDS ORDERED: METOPROLOL TART50 MG ORAL (12:43)
[2020-04-24] MEDS ORDERED: INVANZ1 G1 IM (12:43)
--- NOTE | 2020-04-24 12:47 | Discharge Instructions ---
Discharge Instructions Discharge Instructions Follow up with: PCP and GI Dr. Christianson for PEG Call MD/Return to Hospital if: symptoms worsen or fail to improve Services at Discharge: physical therapy, occupational therapy Diet: regular Activity: as tolerated Special Instructions Follow up with primary care physician and with GI Dr. Christianson for further plann ing regarding PEG tube procedure. Continue IV ertapenem for 4 more days and have follow up urinalysis and urine culture after treatment course completed. Supplement patient's diet with nutritional shakes like Ensure. For Congestive Heart Failure Reminder Report to your physician any weight gain of 5 pounds or more in one week. Porter Jones M.D. Apr 24, 2020 12:47
--- NOTE | 2020-04-24 12:50 | Discharge Summary ---
Discharge Summary Hospital Course Date of Admission Apr 18, 2020 at 12:47 Date of Discharge Apr 24, 2020 Admitting Diagnosis weakness, failure to thrive HPI Almita Tobar is a 80 year old female who was admitted on Apr 18, 2020 at 12:47 for weakness Consultations Cardiology Dr. Calvo Nephrology Dr. Salgado Pulmonology Dr. Meyers Surgery Dr. Maria Procedures Chest X-ray, Abdominal X-ray, Echocardiogram Discharge Medications New Medications: Ertapenem (Invanz) 1 Gm Vial 1 GM IM DAILY for 4 Days, VIAL [Dronabinol] () 2.5 MG CAP 5 MG ORAL TID Folic Acid* (Folic Acid*) 1 Mg Tablet 1 MG ORAL DAILY for 30 Days, TAB Metoprolol Tartrate* (Metoprolol Tartrate*) 50 Mg Tablet 50 MG ORAL Q12HR for 30 Days, TAB Mirtazapine* (Mirtazapine*) 15 Mg Tablet 15 MG ORAL BEDTIME for 30 Days, TAB Multivitamins* (Multivitamins*) 1 Each Tablet 1 TAB ORAL DAILY for 30 Days, TAB Nitroglycerin 0.4MG table* (Nitroglycerin*) 0.4 Mg Tab.subl 0.4 MG SL Q5M PRN for 30 Days, TAB Zinc Sulfate (Zinc Sulfate) 220 Mg Tablet 220 MG ORAL DAILY for 30 Days, TAB Continued Medications: Amino Acids/Protein Hydrolys (Pro-Stat Liquid) 30 Ml Liquid.pkt 30 ML ORAL DAILY for SUPPLEMENT Apixaban (Eliquis*) 2.5 Mg Tablet 2.5 MG ORAL BID for Anticoagulant, TAB Ascorbic Acid* (Ascorbic Acid*) 500 Mg Tablet 500 MG ORAL DAILY, TAB Cranberry Fruit Concentrate (Cranberry) 450 Mg Capsule 450 MG PO DAILY for , CAP Dextran 70/Hypromellose (Artificial Tears Eye Drops*) 15 Ml Drops 1 DROP BOTH EYES DAILY for DRY EYE Docusate Sodium* (Docusate Sodium*) 100 Mg Capsule 100 MG ORAL TWICE A DAY, CAP Dorzolamide Hcl/Timolol Maleat (Cosopt Eye Drops) 10 Ml Drops 1 DROP OP BID for GLAUCOMA Hydrocodone Bit/Acetaminophen 5-325* ([place] 5-325 Tablet*) 1 Each Tablet 1 TAB ORAL Q4H PRN for For Pain, #10 TAB Lidocaine Patch* (Lidoderm Patch*) 1 Each Adh..patch 1 PATCH TOPIC DAILY for Patch(es) may remain in place for up to 12 hours in any 24-hour period. Magnesium Hydroxide* (Milk Of Magnesia*) 400 Mg/5 Ml Oral.susp 30 ML ORAL DAILY PRN for Constipation, ML Sennosides (Senna) 8.6 Mg Tablet 17.2 MG PO BEDTIME for BOWEL MANAGEMENT Simethicone (Simethicone) 80 Mg Tab.chew 80 MG PO Q6HR PRN for GAS Discontinued Medications: Aspirin* (Aspirin Ec*) 325 Mg Tablet. 325 MG ORAL DAILY for Antiplatelet, TAB Discharge Discharge Vital Signs Last Vital Signs Date Time Temp Pulse Resp B/P (MAP) Pulse Ox O2 Delivery O2 Flow Rate FiO2 04/24/20 12:00 97.2 63 20 139/79 (99) 98 04/24/20 09:00 Room Air 04/23/20 19:00 21 Discharge Disposition Patient was discharged to Discharge Instructions Discharge Instructions Follow up with: PCP and GI Dr. Christianson for PEG Call MD/Return to Hospital if: symptoms worsen or fail to improve Services Upon Discharge: physical therapy, occupational therapy Activity: as tolerated Porter Jones M.D. Apr 24, 2020 12:50
--- NOTE | 2020-04-24 13:05 | Cardiac Electrophysiology PN ---
Assessment/Plan Assessment/Plan 1. Atrial fibrillation rapid ventricular response. Continue metoprolol 50 mg b.i.d. and Eliquis 5 mg b.i.d. 2. Inferolateral ischemia on 12-lead EKG. Likely due to Atrial fibrillation with rapid ventricular response. Ruled out for DC EF 55% 3. Failure to thrive. PEG placement pending family consent 4. History of carotid artery aneurysm. 5. Hypertension. On metoprolol. MYAH RN Subjective Subjective More alert in NAD. Off isolation. No restraints. Awaiting consent for PEG placement. Objective Last 24 Hour Vital Signs Date Time Temp Pulse Resp B/P (MAP) Pulse Ox O2 Delivery O2 Flow Rate FiO2 04/24/20 12:00 97.2 63 20 139/79 (99) 98 04/24/20 12:00 81 04/24/20 09:50 70 114/61 04/24/20 09:00 Room Air 04/24/20 08:00 97.9 70 18 114/61 (78) 91 04/24/20 08:00 102 04/24/20 04:00 98.7 70 18 99/66 (77) 91 04/24/20 04:00 78 04/24/20 00:00 75 04/24/20 00:00 98.5 71 20 105/62 (76) 93 04/23/20 21:07 72 102/63 04/23/20 21:00 Room Air 04/23/20 20:00 75 04/23/20 20:00 97.9 74 22 102/63 (76) 100 04/23/20 19:00 83 16 100 Room Air 21 04/23/20 16:00 97.9 64 20 102/58 (73) 100 04/23/20 16:00 88 Intake and Output 04/23/20 04/24/20 19:00 07:00 Intake Total 75 ml 828.75 ml Balance 75 ml 828.75 ml IV Total 75 ml 828.75 ml Microbiology Date/Time Source Procedure Growth Status 04/21/20 15:47 Nasopharynx Coronavirus COVID-19 PCR ([facility]) - Final Complete Objective HEAD AND NECK: No JVD. LUNGS: Clear. CARDIOVASCULAR: Irregular S1 and S2 with no gallop or murmur. ABDOMEN: Soft. EXTREMITIES: No pitting edema. Angel Calvo MD Apr 24, 2020 13:05
[2020-04-24 16:00] VITALS: BP 126/68
--- NOTE | 2020-04-24 17:19 | General Progress Note ---
Subjective Date patient seen: Apr 24, 2020 ROS Limited/Unobtainable: No Allergies: Coded Allergies: ADHESIVE TAPE (Unverified Allergy, Unknown, 12/25/16) PENICILLINS (Unverified Allergy, Unknown, 12/25/16) Uncoded Allergies: PENICILLIN (Allergy, Unknown, 12/25/16) Subjective Constitutional: Denies: no symptoms, chills, diaphoresis, fever, malaise, weakness, other HEENT: Denies: no symptoms, eye pain, blurred vision, tearing, double vision, ear pain, ear discharge, nose pain, nose congestion, throat pain, throat swelling, mouth pain, mouth swelling, other Cardiovascular: Denies: no symptoms, chest pain, edema, irregular heart rate, lightheadedness, palpitations, syncope, other Respiratory: Denies: no symptoms, cough, orthopnea, shortness of breath, SOB with excertion, SOB at rest, sputum, stridor, wheezing, other Gastrointestinal/Abdominal: Denies: no symptoms, abdomen distended, abdominal pain, black stools, tarry stools, blood in stool, constipated, diarrhea, difficulty swallowing, nausea, poor appetite, poor fluid intake, rectal bleed ing, vomiting, other Genitourinary: Denies: no symptoms, burning, discharge, frequency, flank pain, hematuria, incontinence, pain, urgency, other Neurologic/Psychiatric: Denies: no symptoms, anxiety, depressed, emotional problems, headache, numbness, paresthesia, pre-existing deficit, seizure, tingling, tremors, weakness, other Endocrine: Denies: no symptoms, excessive sweating, flushing, intolerance to cold, intolerance to heat, increased hunger, increased thirst, increased urine, unexplained weight gain, unexplained weight loss, other Hematologic/Lymphatic: Denies: no symptoms, anemia, easy bleeding, easy bruising, other Interval events: no acute events overnight Today patient feels tired, but otherwise no complaints. Still state she feels she is eating enough, but again per nurse report, patient is not consuming majority of her meal to obtain enough calories. Objective Last 24 Hour Vital Signs Date Time Temp Pulse Resp B/P (MAP) Pulse Ox O2 Delivery O2 Flow Rate FiO2 04/24/20 12:00 97.2 63 20 139/79 (99) 98 04/24/20 12:00 81 04/24/20 09:50 70 114/61 04/24/20 09:00 Room Air 04/24/20 08:00 97.9 70 18 114/61 (78) 91 04/24/20 08:00 102 04/24/20 04:00 98.7 70 18 99/66 (77) 91 04/24/20 04:00 78 04/24/20 00:00 75 04/24/20 00:00 98.5 71 20 105/62 (76) 93 04/23/20 21:07 72 102/63 04/23/20 21:00 Room Air 04/23/20 20:00 75 04/23/20 20:00 97.9 74 22 102/63 (76) 100 04/23/20 19:00 83 16 100 Room Air 21 Intake and Output 04/23/20 04/24/20 19:00 07:00 Intake Total 75 ml 828.75 ml Balance 75 ml 828.75 ml IV Total 75 ml 828.75 ml Height (Feet): 5 Height (Inches): 4.00 Weight (Pounds): 120 Objective General Appearance: no apparent distress, alert, alert oriented x3, tired appearing, conversant EENT: PERRL/EOMI Neck: normal alignment, supple Cardiovascular: normal rate, regular rhythm, no JVD Respiratory/Chest: lungs clear, normal breath sounds, no respiratory distress Abdomen: normal bowel sounds, non tender, soft Extremities: non-tender Edema: no edema noted Arm (L), no edema noted Arm (R), no edema noted Leg (L), no edema noted Leg (R), no edema noted Pedal (L), no edema noted Pedal (R), no edema noted Generalized Neurologic: skin diver II-XII grossly normal, alert, oriented x 3 Skin: normal pigmentation, warm/dry Assessment/Plan Assessment/Plan: Mrs. Tobar is an 80-year-old female past medical history of A. fib, hypertension, carotid artery aneurysm is presenting from [facility] for generalized weakness. A: #Atrial fibrillation with rapid ventricular heart rate 2/2 possible infectious etiology #Failure to thrive #UTI with ESBL E. coli #Mild pulmonary hypertension possibly class I #Essential hypertension #Carotid artery aneurysm #Poor oral intake #Constipation P: Currently hemodynamically stable Continue metoprolol 50 mg twice daily On Eliquis 2.5 mg BID Continue ertapenem for ESBL E. coli UTI IVF Replace folic acid deficiency Nutritional consult Continue Remeron and Marinol Status post Fleet enema Plan for PEG placement Wednesday Continue Becky, farana Consult Dr. Calvo, cardiology, recs appreciated Consult Dr. Salgado, nephrology, recs appreciated - Consult Dr. Christianson, GI, recs appreciated CM Code: DO NOT INTUBATE GI: None DVT prophylaxis: Eliquis Diet: Cardiac Dispo: Pending PEG placement Wednesday, then plan to go back to SNF Time spent on this encounter was 38 minutes which included 25 minutes of counseling and care coordination, discussion with patient regarding PEG tube, GI consult discussion. I discussed with the nurse at bedside. Time of note may not reflect time patient was seen. Porter Jones M.D. Apr 24, 2020 17:19
--- NOTE | 2020-04-24 17:45 | Surgery Progress Note ---
Surgery Progress Note Subjective Symptoms: improved, tolerating diet, passing flatus, BM Objective Last 24 Hour Vital Signs Date Time Temp Pulse Resp B/P (MAP) Pulse Ox O2 Delivery O2 Flow Rate FiO2 04/24/20 12:00 97.2 63 20 139/79 (99) 98 04/24/20 12:00 81 04/24/20 09:50 70 114/61 04/24/20 09:00 Room Air 04/24/20 08:00 97.9 70 18 114/61 (78) 91 04/24/20 08:00 102 04/24/20 04:00 98.7 70 18 99/66 (77) 91 04/24/20 04:00 78 04/24/20 00:00 75 04/24/20 00:00 98.5 71 20 105/62 (76) 93 04/23/20 21:07 72 102/63 04/23/20 21:00 Room Air 04/23/20 20:00 75 04/23/20 20:00 97.9 74 22 102/63 (76) 100 04/23/20 19:00 83 16 100 Room Air 21 I&O Intake and Output 04/23/20 04/24/20 19:00 07:00 Intake Total 75 ml 828.75 ml Balance 75 ml 828.75 ml IV Total 75 ml 828.75 ml Dressing: saturated Cardiovascular: RSR Respiratory: clear, decreased breath sounds Abdomen: soft, non-tender, present bowel sounds Extremities: no edema, no tenderness, no cyanosis Plan Problems: (1) Decubitus skin ulcer Assessment & Plan: [address] [place] [address] facility presented on admission with multiple skin concerns. RIGHT BUTTOCK- STAGE IV PRESSURE ULCER MEASURES 3.0X2.0X0.8CM. WOUND BED WITH 40% YELLOW SLOUGH. NO ODOR. ISABELLA-WOUND SKIN WITH NOTED SCARRING. INTACT AT THIS TIME. RECOMMEND-CLEAN WITH SALINE, PAT DRY, APPLY THERAHONEY AND COVER WITH OPTIFOAM DRESSING. REPLACE DAILY. LEFT BUTTOCK-STAGE II PRESSURE ULCER MEASURES 1.0X1.5X0.2CM. WOUND BED PINK. ISABELLA-WOUND SKIN WITH NOTED SCARRING WELL. INTACT AT THIS TIME. RECOMMEND-CLEAN WITH SALINE, PAT DRY, APPLY TRIAD AND COVER WITH OPTIFOAM DRESSING. REPLACE EVERY OTHER DAY.. LEFT LATERAL HEEL- DARK BROWN ESCHAR MEASURES 2.0X1.0CM WITH DTI SURROUNDING IT. DTI MEASURES 2.5X2.0CM AREA DARK PURPLE IN COLOR AND BOGGY TO TOUCH. RECOMMEND- APPLY CAVILON SKIN PROTECTOR AND COVER WITH OPTIFOAM DRESSING. REPLACE EVERY 3 DAYS. RIGHT HEEL- DTI MEASURES 3.0X1.5CM AREA DARK PURPLE IN COLOR. RECOMMEND- APPLY CAVILON SKIN PROTECTOR AND COVER WITH OPTIFOAM DRESSING. REPLACE EVERY 3 DAYS. Turn Q2H OFF LOAD PRESSURE WITH PILLOWS AIR LOSS MATTRESS NUTRITIONAL OPTIMIZATION (2) Malnutrition Assessment & Plan: nutrition required for wound healing bmi 20 low alb diet as tolerated bowel regimen labs noted will follow with recs DAILY ESTIMATED NEEDS: Needs based on Wound, underweight/ 46.5kg 30-35 kcals/kg 9650-0215 total kcals 1.25-1.5 g protein/kg 58-70 g total protein 25-30 mL/kg 5417-7837 total fluid mLs NUTRITION DIAGNOSIS: * Increased kcal/prot needs R/T wound healing, underweight status as evidenced by admitted w/ multiple wounds, including stage 4 R buttock wound, stage 2 L buttock wound, DTI @ L lateral heel and R heel, pt @ 8% IBW w/ low BMI per guidelines, w/ poor and variable intake noted. * Swallowing difficulty R/T dysphagia as evidenced by pt on pureed texture SAFETY LEADER. CURRENT DIET:CARDIAC PO DIET RECOMMENDATIONS: Liberalized regular/ texture per SPA CONCIERGE ADDITIONAL RECOMMENDATIONS: * Calibrated bedscale wt * Ensure Enlive TID w/ meals * S[facility]ER[facility] eval for appropriate texture and liquid consistency -> pt on pureed texture SAFETY LEADER, downgraded to pureed for now * Wound healing: MVI w/ min x1, Vit C 500mg BID, ZnSO4 220mg QD x 10days Saurav BID added to tray (3) UTI (urinary tract infection) (4) Atrial fibrillation with RVR (5) Low back pain (6) ACS (acute coronary syndrome) (7) Toxic metabolic encephalopathy (8) Abdominal distension Assessment & Plan: Nonobstructed bowel gas pattern. MODERATE FECAL RETENTION WITH LARGE STOOL IN THE RECTUM, CORRELATE FOR FECAL IMPACTION. No free intraperitoneal air. The lung bases are clear. Cardiomegaly. Calcification projecting over the right kidney measuring 2.2 x 0.8 cm may represent a stone. enema bowel regimen Additional Comments d/c planning diet as tolerated Refugio Maria Apr 24, 2020 17:45
--- NOTE | 2020-04-24 18:46 | Nephrology Progress Note ---
Assessment/Plan Plan #afib with RVR #UTI #Hypokalemia #Hypophos #failure to thrive #HTN #anemia - GI eval -discussed with daughter -plan for PEG on wednesday - replete lytes - cardiology eval - ertapenem for UTI - meop 50 BID - apixaban 2.5mg BID - monitor lytes - monitor for bleeding time spent 35min Subjective ROS Limited/Unobtainable: No Constitutional: Reports: weakness HEENT: Denies: no symptoms, eye pain, blurred vision, tearing, double vision, ear pain, ear discharge, nose pain, nose congestion, throat pain, throat swelling, mouth pain, mouth swelling, other Genitourinary: Denies: no symptoms, burning, discharge, frequency, flank pain, hematuria, incontinence, pain, urgency, other Neurologic/Psychiatric: Denies: no symptoms, anxiety, depressed, emotional problems, headache, numbness, paresthesia, pre-existing deficit, seizure, tingling, tremors, weakness, other Subjective appitite poor refusing to eat started drabinol discussed with daughter -plan for PEG on wednesday Objective Objective Last 24 Hour Vital Signs Date Time Temp Pulse Resp B/P (MAP) Pulse Ox O2 Delivery O2 Flow Rate FiO2 04/24/20 16:00 97.9 65 18 126/68 (87) 95 04/24/20 16:00 84 04/24/20 12:00 97.2 63 20 139/79 (99) 98 04/24/20 12:00 81 04/24/20 09:50 70 114/61 04/24/20 09:00 Room Air 04/24/20 08:00 97.9 70 18 114/61 (78) 91 04/24/20 08:00 102 04/24/20 04:00 98.7 70 18 99/66 (77) 91 04/24/20 04:00 78 04/24/20 00:00 75 04/24/20 00:00 98.5 71 20 105/62 (76) 93 04/23/20 21:07 72 102/63 04/23/20 21:00 Room Air 04/23/20 20:00 75 04/23/20 20:00 97.9 74 22 102/63 (76) 100 04/23/20 19:00 83 16 100 Room Air 21 Intake and Output 04/23/20 04/24/20 19:00 07:00 Intake Total 75 ml 828.75 ml Balance 75 ml 828.75 ml IV Total 75 ml 828.75 ml Height (Feet): 5 Height (Inches): 4.00 Weight (Pounds): 120 Joanna Salgado M.D. Apr 24, 2020 18:46
[2020-04-24 20:00] VITALS: BP 125/71
--- NOTE | 2020-04-24 23:44 | Consultation ---
DATE OF CONSULTATION: 04/24/2020 CONSULTING PHYSICIAN: Esa De La Cruz MD HISTORY OF PRESENT ILLNESS: This is an 80-year-old female with a history of hypertension, AFib, carotid artery aneurysm who has been admitted to the hospital due to weakness. Patient is weak , low appetite, decreased energy, depressed mood, poor memory. PAST PSYCHIATRIC HISTORY: Depression, anxiety, cognitive impairment. PAST MEDICAL HISTORY: Anemia, low appetite, dementia. ALLERGIES: Penicillin. SUBSTANCE ABUSE HISTORY: No known history of illicit drug use or alcohol. MENTAL STATUS EXAMINATION: Patient is awake, disoriented. Mood is anxious. Affect is blunted, congruent with mood. Thought process is concrete. Thought content, no suicidal or homicidal ideation. Cognition is impaired. Insight and judgment is impaired. ASSESSMENT: Clarence I Toxic encephalopathy. Dementia. Clarence II Deferred. Clarence III Failure to thrive. Clarence IV Low. Clarence V 20. PLAN: 1. Mirtazapine 50 mg at bedtime. 2. Continue to follow and readjust the medications. Esa De La Cruz M.D. DR: MILADY JOB#: [id number] CC:
[2020-04-25] VITALS: BP 116/52
[2020-04-25] MEDS: D5 1/2NS w/KCl 20mEq 1,000 ML IV SCH ×2 (02:08→16:46)
[2020-04-25 04:00] VITALS: BP 131/84
--- NOTE | 2020-04-25 06:39 | General Progress Note ---
Subjective ROS Limited/Unobtainable: No Allergies: Coded Allergies: ADHESIVE TAPE (Unverified Allergy, Unknown, 12/25/16) PENICILLINS (Unverified Allergy, Unknown, 12/25/16) Uncoded Allergies: PENICILLIN (Allergy, Unknown, 12/25/16) Objective Last 24 Hour Vital Signs Date Time Temp Pulse Resp B/P (MAP) Pulse Ox O2 Delivery O2 Flow Rate FiO2 04/25/20 04:00 98.1 85 17 131/84 (100) 96 04/25/20 03:35 82 04/25/20 00:00 98.4 92 18 116/52 (73) 96 04/24/20 23:32 83 04/24/20 22:01 71 169/92 04/24/20 21:00 Room Air 04/24/20 20:14 78 18 96 Room Air 21 04/24/20 20:00 98.7 80 18 125/71 (89) 95 04/24/20 20:00 99 04/24/20 16:00 97.9 65 18 126/68 (87) 95 04/24/20 16:00 84 04/24/20 12:00 97.2 63 20 139/79 (99) 98 04/24/20 12:00 81 04/24/20 09:50 70 114/61 04/24/20 09:00 Room Air 04/24/20 08:00 97.9 70 18 114/61 (78) 91 04/24/20 08:00 102 Intake and Output 04/24/20 04/25/20 18:59 06:59 Intake Total 75 ml 654 ml Balance 75 ml 654 ml Intake Oral 120 ml IV Total 75 ml 534 ml # Voids 5 2 # Bowel Movements 2 Height (Feet): 5 Height (Inches): 4.00 Weight (Pounds): 120 General Appearance: no apparent distress EENT: normal ENT inspection Neck: supple Cardiovascular: normal rate Respiratory/Chest: decreased breath sounds Abdomen: normal bowel sounds, non tender, soft Extremities: non-tender Assessment/Plan Assessment/Plan: afib with RVR UTI Hypokalemia failure to thrive HTN anemia on marinol and remeron still very poor po intake spoke with her daughter, she agreed to PEG plan for tomorrow Sterling Christianson MD Apr 25, 2020 06:39
[2020-04-25 08:00] VITALS: BP 121/73
--- NOTE | 2020-04-25 08:25 | Pulmonology Progress Note ---
Subjective ROS Limited/Unobtainable: No Interval Events: None new Constitutional: Reports: no symptoms HEENT: Repors: no symptoms Respiratory: Reports: no symptoms Cardiovascular: Reports: no symptoms Gastrointestinal/Abdominal: Reports: no symptoms Allergies: Coded Allergies: ADHESIVE TAPE (Unverified Allergy, Unknown, 12/25/16) PENICILLINS (Unverified Allergy, Unknown, 12/25/16) Uncoded Allergies: PENICILLIN (Allergy, Unknown, 12/25/16) Objective Last 24 Hour Vital Signs Date Time Temp Pulse Resp B/P (MAP) Pulse Ox O2 Delivery O2 Flow Rate FiO2 04/25/20 04:00 98.1 85 17 131/84 (100) 96 04/25/20 03:35 82 04/25/20 00:00 98.4 92 18 116/52 (73) 96 04/24/20 23:32 83 04/24/20 22:01 71 169/92 04/24/20 21:00 Room Air 04/24/20 20:14 78 18 96 Room Air 21 04/24/20 20:00 98.7 80 18 125/71 (89) 95 04/24/20 20:00 99 04/24/20 16:00 97.9 65 18 126/68 (87) 95 04/24/20 16:00 84 04/24/20 12:00 97.2 63 20 139/79 (99) 98 04/24/20 12:00 81 04/24/20 09:50 70 114/61 04/24/20 09:00 Room Air Intake and Output 04/24/20 04/25/20 19:00 07:00 Intake Total 944 ml Balance 944 ml Intake Oral 120 ml IV Total 824 ml # Voids 5 2 # Bowel Movements 2 General Appearance: no acute distress HEENT: normocephalic Respiratory: chest wall non-tender, lungs clear Cardiovascular: normal peripheral pulses Abdomen: normal bowel sounds Current Medications Medications (Trade) Dose Ordered Sig/Chad Route PRN Reason Start Time Stop Time Status Last Admin Dose Admin Acetaminophen (Tylenol) 650 mg Q4H PRN ORAL Mild Pain (Pain Scale 1-3) 04/18/20 15:15 05/18/20 15:14 Acetaminophen (Tylenol) 650 mg Q4H PRN ORAL Temp >100.5 04/18/20 15:15 05/18/20 15:14 Al Hydroxide/Mg Hydroxide (Mylanta II) 30 ml Q6H PRN ORAL dyspepsia 04/18/20 15:15 05/18/20 15:14 Ascorbic Acid (Vitamin C) 500 mg TWICE A DAY ORAL 04/20/20 18:00 05/20/20 17:59 04/24/20 18:04 Dextrose (Dextrose 50%) 25 ml Q30M PRN IV Hypoglycemia 04/18/20 15:15 07/17/20 15:14 Dextrose (Dextrose 50%) 50 ml Q30M PRN IV Hypoglycemia 04/18/20 15:15 07/17/20 15:14 Dextrose/ Electrolytes 1,000 ml @ 75 mls/hr [id number] IV 04/19/20 11:00 05/19/20 10:59 04/25/20 02:08 Docusate Sodium (Colace) 100 mg TWICE A DAY ORAL 04/21/20 10:30 05/21/20 10:29 04/24/20 18:03 Folic Acid (Folate) 1 mg DAILY ORAL 04/19/20 09:00 05/19/20 08:59 04/24/20 09:50 Metoprolol Tartrate (Lopressor) 5 mg Q5M PRN IVP afib with RVR HR > 120 up 04/18/20 15:15 07/17/20 15:14 Metoprolol Tartrate (Lopressor) 50 mg Q12HR ORAL 04/18/20 21:00 07/17/20 20:59 04/24/20 22:01 Multivitamins (Multivitamins) 1 tab DAILY ORAL 04/21/20 09:00 05/21/20 08:59 04/24/20 09:51 Nitroglycerin (Ntg) 0.4 mg Q5M PRN SL Prn Chest Pain 04/18/20 15:15 05/18/20 15:14 Sennosides (Senokot) 8.6 mg DAILY PRN ORAL Constipation 04/21/20 10:30 05/21/20 10:29 Zinc Sulfate (Zinc Sulfate) 220 mg DAILY ORAL 04/21/20 09:00 05/01/20 08:59 04/24/20 09:50 Assessment/Plan Assessment/Plan IMPRESSION: 1. AFib with RVR. 2. Mild dyspnea. 3. Hypertension. DISCUSSION: The patient is doing well from respiratory standpoint. Saturating well on RA; currently 96% Predominant care by Cardiology for rate control. 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 Randy Meyers M.D. Randy Meyers MD Apr 25, 2020 08:25
[2020-04-25] MEDS: Zinc Sulfate 220mg ORAL SCH (09:18)
[2020-04-25] MEDS: Docusate 100mg cap ORAL SCH ×2 (09:18→16:46)
[2020-04-25] MEDS: Ascorbic Acid 500mg tab ORAL SCH ×2 (09:18→16:46)
[2020-04-25] MEDS: Metoprolol Tartrate 50mg tab ORAL SCH ×2 (09:22→22:01)
--- NOTE | 2020-04-25 10:29 | Cardiac Electrophysiology PN ---
Assessment/Plan Assessment/Plan 1. Atrial fibrillation rapid ventricular response. Continue metoprolol 50 mg b.i.d. and Eliquis 5 mg b.i.d. 2. Inferolateral ischemia on 12-lead EKG due to Atrial fibrillation with rapid ventricular response. Ruled out for [place] EF 55% 3. Failure to thrive. PEG placement pending tomorrow 4. History of carotid artery aneurysm. 5. Hypertension. On metoprolol. MYAH RN Subjective Subjective Alert in NAD. Off isolation. No restraints. PEG scheduled for tomorrow Objective Last 24 Hour Vital Signs Date Time Temp Pulse Resp B/P (MAP) Pulse Ox O2 Delivery O2 Flow Rate FiO2 04/25/20 09:22 91 121/73 04/25/20 08:00 97.9 91 20 121/73 (89) 95 04/25/20 08:00 84 04/25/20 04:00 98.1 85 17 131/84 (100) 96 04/25/20 03:35 82 04/25/20 00:00 98.4 92 18 116/52 (73) 96 04/24/20 23:32 83 04/24/20 22:01 71 169/92 04/24/20 21:00 Room Air 04/24/20 20:14 78 18 96 Room Air 21 04/24/20 20:00 98.7 80 18 125/71 (89) 95 04/24/20 20:00 99 04/24/20 16:00 97.9 65 18 126/68 (87) 95 04/24/20 16:00 84 04/24/20 12:00 97.2 63 20 139/79 (99) 98 04/24/20 12:00 81 Intake and Output 04/24/20 04/25/20 19:00 07:00 Intake Total 944 ml Balance 944 ml Intake Oral 120 ml IV Total 824 ml # Voids 5 2 # Bowel Movements 2 Objective HEAD AND NECK: No JVD. LUNGS: Clear. CARDIOVASCULAR: Irregular S1 and S2 with no gallop or murmur. ABDOMEN: Soft. EXTREMITIES: No pitting edema. Angel Calvo MD Apr 25, 2020 10:29
--- NOTE | 2020-04-25 11:26 | Surgery Progress Note ---
Surgery Progress Note Subjective Additional Comments comfortable stable no complaints no n/v labs noted exam stable Objective Last 24 Hour Vital Signs Date Time Temp Pulse Resp B/P (MAP) Pulse Ox O2 Delivery O2 Flow Rate FiO2 04/25/20 09:22 91 121/73 04/25/20 08:00 97.9 91 20 121/73 (89) 95 04/25/20 08:00 84 04/25/20 04:00 98.1 85 17 131/84 (100) 96 04/25/20 03:35 82 04/25/20 00:00 98.4 92 18 116/52 (73) 96 04/24/20 23:32 83 04/24/20 22:01 71 169/92 04/24/20 21:00 Room Air 04/24/20 20:14 78 18 96 Room Air 21 04/24/20 20:00 98.7 80 18 125/71 (89) 95 04/24/20 20:00 99 04/24/20 16:00 97.9 65 18 126/68 (87) 95 04/24/20 16:00 84 04/24/20 12:00 97.2 63 20 139/79 (99) 98 04/24/20 12:00 81 I&O Intake and Output 04/24/20 04/25/20 19:00 07:00 Intake Total 944 ml Balance 944 ml Intake Oral 120 ml IV Total 824 ml # Voids 5 2 # Bowel Movements 2 Cardiovascular: RSR Respiratory: decreased breath sounds Abdomen: present bowel sounds Extremities: no edema, no tenderness, no cyanosis Plan Problems: (1) Decubitus skin ulcer Assessment & Plan: [address] [place] [address] facility presented on admission with multiple skin concerns. RIGHT BUTTOCK- STAGE IV PRESSURE ULCER MEASURES 3.0X2.0X0.8CM. WOUND BED WITH 40% YELLOW SLOUGH. NO ODOR. ISABELLA-WOUND SKIN WITH NOTED SCARRING. INTACT AT THIS TIME. RECOMMEND-CLEAN WITH SALINE, PAT DRY, APPLY THERAHONEY AND COVER WITH OPTIFOAM DRESSING. REPLACE DAILY. LEFT BUTTOCK-STAGE II PRESSURE ULCER MEASURES 1.0X1.5X0.2CM. WOUND BED PINK. ISBAELLA-WOUND SKIN WITH NOTED SCARRING WELL. INTACT AT THIS TIME. RECOMMEND-CLEAN WITH SALINE, PAT DRY, APPLY TRIAD AND COVER WITH OPTIFOAM DRESSING. REPLACE EVERY OTHER DAY.. LEFT LATERAL HEEL- DARK BROWN ESCHAR MEASURES 2.0X1.0CM WITH DTI SURROUNDING IT. DTI MEASURES 2.5X2.0CM AREA DARK PURPLE IN COLOR AND BOGGY TO TOUCH. RECOMMEND- APPLY CAVILON SKIN PROTECTOR AND COVER WITH OPTIFOAM DRESSING. REPL COLE EVERY 3 DAYS. RIGHT HEEL- DTI MEASURES 3.0X1.5CM AREA DARK PURPLE IN COLOR. RECOMMEND- APPLY CAVILON SKIN PROTECTOR AND COVER WITH OPTIFOAM DRESSING. REPLACE EVERY 3 DAYS. Turn Q2H OFF LOAD PRESSURE WITH PILLOWS AIR LOSS MATTRESS NUTRITIONAL OPTIMIZATION (2) Malnutrition Assessment & Plan: nutrition required for wound healing bmi 20 low alb diet as tolerated bowel regimen labs noted will follow with recs DAILY ESTIMATED NEEDS: Needs based on Wound, underweight/ 46.5kg 30-35 kcals/kg 1501-0623 total kcals 1.25-1.5 g protein/kg 58-70 g total protein 25-30 mL/kg 6617-8087 total fluid mLs NUTRITION DIAGNOSIS: * Increased kcal/prot needs R/T wound healing, underweight status as evidenced by admitted w/ multiple wounds, including stage 4 R buttock wound, stage 2 L buttock wound, DTI @ L lateral heel and R heel, pt @ 8% IBW w/ low BMI per guidelines, w/ poor and variable intake noted. * Swallowing difficulty R/T dysphagia as evidenced by pt on pureed texture BOX CUTTER. CURRENT DIET:CARDIAC PO DIET RECOMMENDATIONS: Liberalized regular/ texture per CLERK ENTRY LEVEL ADDITIONAL RECOMMENDATIONS: * Calibrated bedscale wt * Ensure Enlive TID w/ meals * CLERK ENTRY LEVEL eval for appropriate texture and liquid consistency -> pt on pureed texture BOX CUTTER, downgraded to pureed for now * Wound healing: MVI w/ min x1, Vit C 500mg BID, ZnSO4 220mg QD x 10days Saurav BID added to tray (3) UTI (urinary tract infection) (4) Atrial fibrillation with RVR (5) Low back pain (6) ACS (acute coronary syndrome) (7) Toxic metabolic encephalopathy (8) Abdominal distension Assessment & Plan: Nonobstructed bowel gas pattern. MODERATE FECAL RETENTION WITH LARGE STOOL IN THE RECTUM, CORRELATE FOR FECAL IMPACTION. No free intraperitoneal air. The lung bases are clear. Cardiomegaly. Calcification projecting over the right kidney measuring 2.2 x 0.8 cm may represent a stone. enema bowel regimen Refugio Maria Apr 25, 2020 11:26
[2020-04-25 12:00] VITALS: BP 128/75
--- NOTE | 2020-04-25 12:26 | Nephrology Progress Note ---
Assessment/Plan Plan #afib with RVR #UTI #Hypokalemia #Hypophos #failure to thrive #HTN #anemia - GI eval -discussed with daughter -plan for PEG on wednesday - replete lytes - cardiology eval - ertapenem for UTI - meop 50 BID - apixaban 2.5mg BID - monitor lytes - monitor for bleeding time spent 35min Subjective ROS Limited/Unobtainable: No Constitutional: Reports: weakness Subjective appitite poor refusing to eat started drabinol discussed with daughter -plan for PEG on wednesday Objective Objective Last 24 Hour Vital Signs Date Time Temp Pulse Resp B/P (MAP) Pulse Ox O2 Delivery O2 Flow Rate FiO2 04/25/20 09:22 91 121/73 04/25/20 09:00 Room Air 04/25/20 08:36 82 18 97 Room Air 21 04/25/20 08:00 97.9 91 20 121/73 (89) 95 04/25/20 08:00 84 04/25/20 04:00 98.1 85 17 131/84 (100) 96 04/25/20 03:35 82 04/25/20 00:00 98.4 92 18 116/52 (73) 96 04/24/20 23:32 83 04/24/20 22:01 71 169/92 04/24/20 21:00 Room Air 04/24/20 20:14 78 18 96 Room Air 21 04/24/20 20:00 98.7 80 18 125/71 (89) 95 04/24/20 20:00 99 04/24/20 16:00 97.9 65 18 126/68 (87) 95 04/24/20 16:00 84 Intake and Output 04/24/20 04/25/20 19:00 07:00 Intake Total 944 ml Balance 944 ml Intake Oral 120 ml IV Total 824 ml # Voids 5 2 # Bowel Movements 2 Height (Feet): 5 Height (Inches): 4.00 Weight (Pounds): 120 Joanna Salgado M.D. Apr 25, 2020 12:26
[2020-04-25 16:00] VITALS: BP 136/62
--- NOTE | 2020-04-25 19:27 | General Progress Note ---
Subjective Date patient seen: Apr 25, 2020 ROS Limited/Unobtainable: No Allergies: Coded Allergies: ADHESIVE TAPE (Unverified Allergy, Unknown, 12/25/16) PENICILLINS (Unverified Allergy, Unknown, 12/25/16) Uncoded Allergies: PENICILLIN (Allergy, Unknown, 12/25/16) Subjective Constitutional: Denies: no symptoms, chills, diaphoresis, fever, malaise, weakness, other HEENT: Denies: no symptoms, eye pain, blurred vision, tearing, double vision, ear pain, ear discharge, nose pain, nose congestion, throat pain, throat swelling, mouth pain, mouth swelling, other Cardiovascular: Denies: no symptoms, chest pain, edema, irregular heart rate, lightheadedness, palpitations, syncope, other Respiratory: Denies: no symptoms, cough, orthopnea, shortness of breath, SOB with excertion, SOB at rest, sputum, stridor, wheezing, other Gastrointestinal/Abdominal: Denies: no symptoms, abdomen distended, abdominal pain, black stools, tarry stools, blood in stool, constipated, diarrhea, difficulty swallowing, nausea, poor appetite, poor fluid intake, rectal bleed ing, vomiting, other Genitourinary: Denies: no symptoms, burning, discharge, frequency, flank pain, hematuria, incontinence, pain, urgency, other Neurologic/Psychiatric: Denies: no symptoms, anxiety, depressed, emotional problems, headache, numbness, paresthesia, pre-existing deficit, seizure, tingling, tremors, weakness, other Endocrine: Denies: no symptoms, excessive sweating, flushing, intolerance to cold, intolerance to heat, increased hunger, increased thirst, increased urine, unexplained weight gain, unexplained weight loss, other Hematologic/Lymphatic: Denies: no symptoms, anemia, easy bleeding, easy bruising, other Interval events: no acute events overnight Today patient feels ok, no new complaints. Not eating most of her meals. Objective Last 24 Hour Vital Signs Date Time Temp Pulse Resp B/P (MAP) Pulse Ox O2 Delivery O2 Flow Rate FiO2 04/25/20 16:00 97.7 85 20 136/62 (86) 95 04/25/20 16:00 77 04/25/20 12:00 87 04/25/20 12:00 98.1 89 18 128/75 (92) 95 04/25/20 09:22 91 121/73 04/25/20 09:00 Room Air 04/25/20 08:36 82 18 97 Room Air 21 04/25/20 08:00 97.9 91 20 121/73 (89) 95 04/25/20 08:00 84 04/25/20 04:00 98.1 85 17 131/84 (100) 96 04/25/20 03:35 82 04/25/20 00:00 98.4 92 18 116/52 (73) 96 04/24/20 23:32 83 04/24/20 22:01 71 169/92 04/24/20 21:00 Room Air 04/24/20 20:14 78 18 96 Room Air 21 04/24/20 20:00 98.7 80 18 125/71 (89) 95 04/24/20 20:00 99 Intake and Output 04/24/20 04/25/20 19:00 07:00 Intake Total 944 ml Balance 944 ml Intake Oral 120 ml IV Total 824 ml # Voids 5 2 # Bowel Movements 2 Height (Feet): 5 Height (Inches): 4.00 Weight (Pounds): 120 Objective General Appearance: no apparent distress, alert, tired appearing, conversant EENT: PERRL/EOMI Neck: normal alignment, supple Cardiovascular: normal rate, regular rhythm, no JVD Respiratory/Chest: lungs clear, normal breath sounds, no respiratory distress Abdomen: normal bowel sounds, non tender, soft, nondistended Extremities: non-tender Edema: no edema noted Arm (L), no edema noted Arm (R), no edema noted Leg (L), no edema noted Leg (R), no edema noted Pedal (L), no edema noted Pedal (R), no edema noted Generalized Neurologic: clinical account specialist II-XII grossly normal, alert, oriented x 3 Skin: normal pigmentation, warm/dry Assessment/Plan Assessment/Plan: Mrs. Tobar is an 80-year-old female past medical history of A. fib, hypertension, carotid artery aneurysm is presenting from [facility] for generalized weakness. A: #Atrial fibrillation with rapid ventricular heart rate 2/2 possible infectious etiology #Failure to thrive #UTI with ESBL E. coli #Mild pulmonary hypertension possibly class I #Essential hypertension #Carotid artery aneurysm #Poor oral intake #Constipation P: Currently hemodynamically stable Continue metoprolol 50 mg twice daily On Eliquis 2.5 mg BID Continue ertapenem for ESBL E. coli UTI IVF Replace folic acid deficiency Nutritional consult Continue Remeron and Marinol Status post Fleet enema Plan for PEG placement tomorrow Continue Colace, senna Consult Dr. Calvo, cardiology, recs appreciated Consult Dr. Salgado, nephrology, recs appreciated - Consult Dr. Christianson, GI, recs appreciated CM Code: DO NOT INTUBATE GI: None DVT prophylaxis: Eliquis Diet: Cardiac Dispo: Pending PEG placement tomorrow then plan to go back to SNF Time spent on this encounter was 35 minutes which included 20 minutes of counseling and care coordination, discussion with patient regarding PEG tube, GI consult discussion. I discussed with the nurse at bedside. Time of note may not reflect time patient was seen. Porter Jones M.D. Apr 25, 2020 19:27
[2020-04-25 20:00] VITALS: BP 138/99
[2020-04-26] VITALS: BP 141/82
[2020-04-26 04:00] VITALS: BP 121/71
[2020-04-26] MEDS: D5 1/2NS w/KCl 20mEq 1,000 ML IV SCH (06:38)
[2020-04-26 06:47] LABS: BASOPHILS % (AUTO) 1.2 % (0.0-2.0); EOSINOPHILS % (AUTO) 0.7 % (0.0-3.0); HEMATOCRIT 34.6 % (37.0-47.0); HEMOGLOBIN 11.7 G/DL (12.0-16.0); LYMPHOCYTES % (AUTO) 22.8 % (20.0-45.0); MEAN CORPUSCULAR VOLUME 103 FL (80-99); MONOCYTES % (AUTO) 7.5 % (1.0-10.0); NEUTROPHILS % (AUTO) 67.9 % (45.0-75.0); PLATELET COUNT 319 K/UL (150-450); RED BLOOD COUNT 3.35 M/UL (4.20-5.40); RED CELL DISTRIBUTION WIDTH 18.9 % (11.6-14.8); WHITE BLOOD COUNT 7.4 K/UL (4.8-10.8)
[2020-04-26 07:03] LABS: ANION GAP 7 mmol/L (5-15); BLOOD UREA NITROGEN 6 mg/dL (7-18); CALCIUM 8.6 MG/DL (8.5-10.1); CARBON DIOXIDE 22 MMOL/L (21-32); CHLORIDE 109 MMOL/L (98-107); CREATININE 0.8 MG/DL (0.55-1.30); POTASSIUM 4.6 MMOL/L (3.5-5.1); SODIUM 138 MMOL/L (136-145)
[2020-04-26 08:00] VITALS: BP 137/91
[2020-04-26] MEDS: Docusate 100mg cap ORAL SCH (08:23)
[2020-04-26] MEDS: Ascorbic Acid 500mg tab ORAL SCH (08:24)
[2020-04-26] MEDS: Zinc Sulfate 220mg ORAL SCH (08:24)
[2020-04-26] MEDS: Metoprolol Tartrate 50mg tab ORAL SCH (08:25)
--- NOTE | 2020-04-26 09:13 | Pre-Procedure Note/Attestation ---
Pre-Procedure Note/Attestation Complete Prior to Procedure Planned Procedure: not applicable Procedure Narrative: esophagogastroduodenoscopy and peg Indications for Procedure Pre-Operative Diagnosis: dysphagia Attestation I attest that I discussed the nature of the procedure; its benefits; risks and complications; and alternatives (and the risks and benefits of such alternatives), prior to the procedure, with the patient (or the patient's legal novelties sales representative). I attest that, if there was a reasonable possibility of needing a blood transfusion, the patient (or the patient's legal novelties sales representative) was given the [facility] standardized written summary, pursuant to the Colin [place] Shield Blood Safety Act ([place] Health and Safety Code # 1645, as amended). I attest that I re-evaluated the patient just prior to the surgery and that there has been no change in the patient's H&P, except as documented below: Sterling Christianson MD Apr 26, 2020 09:13
--- NOTE | 2020-04-26 09:34 | General Progress Note ---
Subjective ROS Limited/Unobtainable: No Allergies: Coded Allergies: ADHESIVE TAPE (Unverified Allergy, Unknown, 12/25/16) PENICILLINS (Unverified Allergy, Unknown, 12/25/16) Uncoded Allergies: PENICILLIN (Allergy, Unknown, 12/25/16) Objective Last 24 Hour Vital Signs Date Time Temp Pulse Resp B/P (MAP) Pulse Ox O2 Delivery O2 Flow Rate FiO2 04/26/20 08:25 87 137/91 04/26/20 08:00 98.3 87 20 137/91 (106) 97 04/26/20 04:00 98.1 86 19 121/71 (88) 96 04/26/20 04:00 83 04/26/20 00:00 97.5 84 20 141/82 (101) 96 04/26/20 00:00 92 04/25/20 22:01 87 138/99 04/25/20 21:00 Room Air 04/25/20 20:00 82 04/25/20 20:00 98.3 87 22 138/99 (112) 98 04/25/20 16:00 97.7 85 20 136/62 (86) 95 04/25/20 16:00 77 04/25/20 12:00 87 04/25/20 12:00 98.1 89 18 128/75 (92) 95 Intake and Output 04/25/20 04/26/20 19:00 07:00 # Voids 2 3 Laboratory Tests 04/26/20 05:40: White Blood Count 7.4, Red Blood Count 3.35L, Hemoglobin 11.7L, Hematocrit 34.6L , Mean Corpuscular Volume 103H, Mean Corpuscular Hemoglobin 35.0H, Mean Corpuscular Hemoglobin Concent 33.9, Red Cell Distribution Width 18.9H, Platelet Count 319, Mean Platelet Volume 6.4L, Neutrophils (%) (Auto) 67.9, Lymphocytes (%) (Auto) 22.8, Monocytes (%) (Auto) 7.5, Eosinophils (%) (Auto) 0.7, Basophils (%) (Auto) 1.2, Sodium Level 138, Potassium Level 4.6, Chloride Level 109H, Carbon Dioxide Level 22, Anion Gap 7, Blood Urea Nitrogen 6L, Creatinine 0.8, Estimat Glomerular Filtration Rate > 60, Glucose Level 90, Calcium Level 8.6 Height (Feet): 5 Height (Inches): 4.00 Weight (Pounds): 120 General Appearance: lethargic EENT: PERRL/EOMI Neck: supple Cardiovascular: normal rate Respiratory/Chest: decreased breath sounds Abdomen: normal bowel sounds, non tender, soft Extremities: non-tender Assessment/Plan Assessment/Plan: afib with RVR UTI Hypokalemia failure to thrive HTN anemia peg canceled today due to family changing their mind pend possible Sterling Muñiz MD Apr 26, 2020 09:34
[2020-04-26] MEDS ORDERED: Vancomycin 1 GM in D5W 275 ML IVPB ONE (10:00)
--- NOTE | 2020-04-26 10:51 | Discharge Summary ---
Discharge Summary Hospital Course Date of Admission Apr 18, 2020 at 12:47 Date of Discharge 04/26/2020 Admitting Diagnosis weakness Reason for Hospitalization: A fib, UTI, malnutrition HPI Almita Tobar is a 80 year old female who was admitted on Apr 18, 2020 at 12:47 for weakness. Mrs. Tobar is an 80-year-old female past medical history of hypertension, atrial fibrillation, carotid artery aneurysm who presents from SNF for generalized weakness. Patient's son at bedside and able to provide some history. Per patient, patient has been feeling weak with chills over the last week. She is unable to provide any other medical complaints at this time. Patient denies any chest pain, shortness of breath, abdominal pain, nausea, vomiting, diarrhea, joint pain. Patient son notes that she has A. 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 Patient son notes that she has a decreased appetite since living at the SNF. He is currently bedbound unable to ambulate. No other recent illnesses or sick contacts. The ED, patient found to be in atrial fibrillation with rapid ventricular heart rate that has been controlled on multiple rounds of diltiazem. Systolic blood pressure holding in the 120s to 130s. Consultations Cardiology Dr. Calvo Nephrology Dr. Salgado Pulmonology Dr. Meyers Surgery Dr. Maria Procedures Chest X-ray, Abdominal X-ray, Echocardiogram Hospital Course Mrs. Toabr is an 80-year-old female past medical history of A. fib, hypertension, carotid artery aneurysm is presenting from SNF for generalized weakness. She was admitted and treated for UTI, A fib, malnutrition. Per GI consult, plan was for PEG tube placement but patient and family were not sure about the procedure so planned to follow up with GI once patient back at SNF. For UTI, patient placed on ertapenem for ESBL infection. Patient treated for A fib with beta rosalina and anticoagulation. Time spent on this discharge was 38 minutes which included 23 minutes of counseling and care coordination, discussion with patient regarding PEG tube, GI consult discussion, antibiotic regimen planning with ID consult. I discussed with the nurse at bedside. Time of note may not reflect time patient was seen. Discharge Medications New Medications: Ertapenem (Invanz) 1 Gm Vial 1 GM IM DAILY for 4 Days, VIAL [Dronabinol] () 2.5 MG CAP 5 MG ORAL TID Folic Acid* (Folic Acid*) 1 Mg Tablet 1 MG ORAL DAILY for 30 Days, TAB Metoprolol Tartrate* (Metoprolol Tartrate*) 50 Mg Tablet 50 MG ORAL Q12HR for 30 Days, TAB Mirtazapine* (Mirtazapine*) 15 Mg Tablet 15 MG ORAL BEDTIME for 30 Days, TAB Multivitamins* (Multivitamins*) 1 Each Tablet 1 TAB ORAL DAILY for 30 Days, TAB Nitroglycerin 0.4MG table* (Nitroglycerin*) 0.4 Mg Tab.subl 0.4 MG SL Q5M PRN for 30 Days, TAB Zinc Sulfate (Zinc Sulfate) 220 Mg Tablet 220 MG ORAL DAILY for 30 Days, TAB Continued Medications: Amino Acids/Protein Hydrolys (Pro-Stat Liquid) 30 Ml Liquid.pkt 30 ML ORAL DAILY for SUPPLEMENT Apixaban (Eliquis*) 2.5 Mg Tablet 2.5 MG ORAL BID for Anticoagulant, TAB Ascorbic Acid* (Ascorbic Acid*) 500 Mg Tablet 500 MG ORAL DAILY, TAB Cranberry Fruit Concentrate (Cranberry) 450 Mg Capsule 450 MG PO DAILY for , CAP Dextran 70/Hypromellose (Artificial Tears Eye Drops*) 15 Ml Drops 1 DROP BOTH EYES DAILY for DRY EYE Docusate Sodium* (Docusate Sodium*) 100 Mg Capsule 100 MG ORAL TWICE A DAY, CAP Dorzolamide Hcl/Timolol Maleat (Cosopt Eye Drops) 10 Ml Drops 1 DROP OP BID for GLAUCOMA Hydrocodone Bit/Acetaminophen 5-325* (Windsor 5-325 Tablet*) 1 Each Tablet 1 TAB ORAL Q4H PRN for For Pain, #10 TAB Lidocaine Patch* (Lidoderm Patch*) 1 Each Adh..patch 1 PATCH TOPIC DAILY for Patch(es) may remain in place for up to 12 hours in any 24-hour period. Magnesium Hydroxide* (Milk Of Magnesia*) 400 Mg/5 Ml Oral.susp 30 ML ORAL DAILY PRN for Constipation, ML Sennosides (Senna) 8.6 Mg Tablet 17.2 MG PO BEDTIME for BOWEL MANAGEMENT Simethicone (Simethicone) 80 Mg Tab.chew 80 MG PO Q6HR PRN for GAS Discontinued Medications: Aspirin* (Aspirin Ec*) 325 Mg Tablet.dr 325 MG ORAL DAILY for Antiplatelet, TAB Discharge Condition Upon Discharge: stable Discharge Vital Signs Last Vital Signs Date Time Temp Pulse Resp B/P (MAP) Pulse Ox O2 Delivery O2 Flow Rate FiO2 04/26/20 08:25 87 137/91 04/26/20 08:00 98.3 20 97 04/25/20 21:00 Room Air 04/25/20 08:36 21 Exam on day of discharge General Appearance: no apparent distress, alert, awake, pleasant EENT: PERRL/EOMI Neck: normal alignment, supple Cardiovascular: normal rate, regular rhythm, no JVD Respiratory/Chest: lungs clear, normal breath sounds, no respiratory distress Abdomen: normal bowel sounds, non tender, soft, nondistended Extremities: non-tender Edema: no edema noted Arm (L), no edema noted Arm (R), no edema noted Leg (L), no edema noted Leg (R), no edema noted Pedal (L), no edema noted Pedal (R), no edema noted Generalized Neurologic: grader green meat II-XII grossly normal, alert, oriented x 3 Skin: normal pigmentation, warm/dry Discharge Disposition Patient was discharged to SNF Discharge Diagnoses: (1) Atrial fibrillation with RVR (2) Malnutrition (3) UTI (urinary tract infection) Discharge Instructions Discharge Instructions Follow up with: PCP and GI Dr. Christianson for PEG Call MD/Return to Hospital if: symptoms worsen or fail to improve Services Upon Discharge: physical therapy, occupational therapy Activity: as tolerated Porter Jones M.D. Apr 26, 2020 10:51
--- NOTE | 2020-04-26 11:39 | Cardiac Electrophysiology PN ---
Assessment/Plan Assessment/Plan 1. Atrial fibrillation rapid ventricular response. Continue metoprolol 50 mg b.i.d. and Eliquis 5 mg b.i.d. 2. Inferolateral ischemia on 12-lead EKG due to Atrial fibrillation with rapid ventricular response. Ruled out for RI EF 55% 3. Failure to thrive. Family refused PEG placement 4. History of carotid artery aneurysm. 5. Hypertension. On metoprolol. MYAH RN OK to DC Subjective Subjective Alert in NAD. Off isolation. No restraints. Family refused PEG DC to SNIF pending Objective Last 24 Hour Vital Signs Date Time Temp Pulse Resp B/P (MAP) Pulse Ox O2 Delivery O2 Flow Rate FiO2 04/26/20 08:25 87 137/91 04/26/20 08:00 96 04/26/20 08:00 98.3 87 20 137/91 (106) 97 04/26/20 04:00 98.1 86 19 121/71 (88) 96 04/26/20 04:00 83 04/26/20 00:00 97.5 84 20 141/82 (101) 96 04/26/20 00:00 92 04/25/20 22:01 87 138/99 04/25/20 21:00 Room Air 04/25/20 20:00 82 04/25/20 20:00 98.3 87 22 138/99 (112) 98 04/25/20 16:00 97.7 85 20 136/62 (86) 95 04/25/20 16:00 77 04/25/20 12:00 87 04/25/20 12:00 98.1 89 18 128/75 (92) 95 Intake and Output 04/25/20 04/26/20 19:00 07:00 # Voids 2 3 Laboratory Tests Test 04/26/20 05:40 White Blood Count 7.4 K/UL (4.8-10.8) Red Blood Count 3.35 M/UL (4.20-5.40) L Hemoglobin 11.7 G/DL (12.0-16.0) L Hematocrit 34.6 % (37.0-47.0) L Mean Corpuscular Volume 103 FL (80-99) H Mean Corpuscular Hemoglobin 35.0 PG (27.0-31.0) H Mean Corpuscular Hemoglobin Concent 33.9 G/DL (32.0-36.0) Red Cell Distribution Width 18.9 % (11.6-14.8) H Platelet Count 319 K/UL (150-450) Mean Platelet Volume 6.4 FL (6.5-10.1) L Neutrophils (%) (Auto) 67.9 % (45.0-75.0) Lymphocytes (%) (Auto) 22.8 % (20.0-45.0) Monocytes (%) (Auto) 7.5 % (1.0-10.0) Eosinophils (%) (Auto) 0.7 % (0.0-3.0) Basophils (%) (Auto) 1.2 % (0.0-2.0) Sodium Level 138 MMOL/L (136-145) Potassium Level 4.6 MMOL/L (3.5-5.1) Chloride Level 109 MMOL/L (98-107) H Carbon Dioxide Level 22 MMOL/L (21-32) Anion Gap 7 mmol/L (5-15) Blood Urea Nitrogen 6 mg/dL (7-18) L Creatinine 0.8 MG/DL (0.55-1.30) Estimat Glomerular Filtration Rate > 60 mL/min (>60) Glucose Level 90 MG/DL (74-106) Calcium Level 8.6 MG/DL (8.5-10.1) Objective HEAD AND NECK: No JVD. LUNGS: Clear. CARDIOVASCULAR: Irregular S1 and S2 with no gallop or murmur. ABDOMEN: Soft. EXTREMITIES: No pitting edema. Angel Calvo MD Apr 26, 2020 11:39
[2020-04-26 12:00] VITALS: BP 116/78
--- NOTE | 2020-04-26 12:57 | Nephrology Progress Note ---
Assessment/Plan Plan #afib with RVR #UTI #Hypokalemia #Hypophos #failure to thrive #HTN #anemia - GI eval -discussed with daughter -plan for PEG on wednesday - replete lytes - cardiology eval - ertapenem for UTI - meop 50 BID - apixaban 2.5mg BID - monitor lytes - monitor for bleeding time spent 35min Subjective Subjective appitite poor refusing to eat started drabinol discussed with daughter -plan for PEG on wednesday Objective Objective Last 24 Hour Vital Signs Date Time Temp Pulse Resp B/P (MAP) Pulse Ox O2 Delivery O2 Flow Rate FiO2 04/26/20 12:00 83 04/26/20 12:00 97.9 83 19 116/78 (91) 100 04/26/20 09:00 Room Air 04/26/20 08:25 87 137/91 04/26/20 08:00 96 04/26/20 08:00 98.3 87 20 137/91 (106) 97 04/26/20 04:00 98.1 86 19 121/71 (88) 96 04/26/20 04:00 83 04/26/20 00:00 97.5 84 20 141/82 (101) 96 04/26/20 00:00 92 04/25/20 22:01 87 138/99 04/25/20 21:00 Room Air 04/25/20 20:00 82 04/25/20 20:00 98.3 87 22 138/99 (112) 98 04/25/20 16:00 97.7 85 20 136/62 (86) 95 04/25/20 16:00 77 Intake and Output 04/25/20 04/26/20 19:00 07:00 # Voids 2 3 Laboratory Tests 04/26/20 05:40: White Blood Count 7.4, Red Blood Count 3.35L, Hemoglobin 11.7L, Hematocrit 34.6L , Mean Corpuscular Volume 103H, Mean Corpuscular Hemoglobin 35.0H, Mean Corpuscular Hemoglobin Concent 33.9, Red Cell Distribution Width 18.9H, Platelet Count 319, Mean Platelet Volume 6.4L, Neutrophils (%) (Auto) 67.9, Lymphocytes (%) (Auto) 22.8, Monocytes (%) (Auto) 7.5, Eosinophils (%) (Auto) 0.7, Basophils (%) (Auto) 1.2, Sodium Level 138, Potassium Level 4.6, Chloride Level 109H, Car bon Dioxide Level 22, Anion Gap 7, Blood Urea Nitrogen 6L, Creatinine 0.8, Estimat Glomerular Filtration Rate > 60, Glucose Level 90, Calcium Level 8.6 Height (Feet): 5 Height (Inches): 4.00 Weight (Pounds): 120 Joanna Salgado M.D. Apr 26, 2020 12:56
--- NOTE | 2020-04-26 13:39 | Pulmonology Progress Note ---
Subjective ROS Limited/Unobtainable: No Interval Events: None new Constitutional: Reports: no symptoms HEENT: Repors: no symptoms Respiratory: Reports: no symptoms Cardiovascular: Reports: no symptoms Gastrointestinal/Abdominal: Reports: no symptoms Allergies: Coded Allergies: ADHESIVE TAPE (Unverified Allergy, Unknown, 12/25/16) PENICILLINS (Unverified Allergy, Unknown, 12/25/16) Uncoded Allergies: PENICILLIN (Allergy, Unknown, 12/25/16) Objective Last 24 Hour Vital Signs Date Time Temp Pulse Resp B/P (MAP) Pulse Ox O2 Delivery O2 Flow Rate FiO2 04/26/20 12:00 83 04/26/20 12:00 97.9 83 19 116/78 (91) 100 04/26/20 12:00 79 04/26/20 09:00 Room Air 04/26/20 08:25 87 137/91 04/26/20 08:00 96 04/26/20 08:00 98.3 87 20 137/91 (106) 97 04/26/20 04:00 98.1 86 19 121/71 (88) 96 04/26/20 04:00 83 04/26/20 00:00 97.5 84 20 141/82 (101) 96 04/26/20 00:00 92 04/25/20 22:01 87 138/99 04/25/20 21:00 Room Air 04/25/20 20:00 82 04/25/20 20:00 98.3 87 22 138/99 (112) 98 04/25/20 16:00 97.7 85 20 136/62 (86) 95 04/25/20 16:00 77 Intake and Output 04/25/20 04/26/20 19:00 07:00 # Voids 2 3 General Appearance: no acute distress HEENT: normocephalic Respiratory: chest wall non-tender, lungs clear Cardiovascular: normal peripheral pulses Abdomen: normal bowel sounds Laboratory Tests 04/26/20 05:40: White Blood Count 7.4, Red Blood Count 3.35L, Hemoglobin 11.7L, Hematocrit 34.6L , Mean Corpuscular Volume 103H, Mean Corpuscular Hemoglobin 35.0H, Mean Corpuscular Hemoglobin Concent 33.9, Red Cell Distribution Width 18.9H, Platelet Count 319, Mean Platelet Volume 6.4L, Neutrophils (%) (Auto) 67.9, Lymphocytes (%) (Auto) 22.8, Monocytes (%) (Auto) 7.5, Eosinophils (%) (Auto) 0.7, Basophils (%) (Auto) 1.2, Sodium Level 138, Potassium Level 4.6, Chloride Level 109H, Carbon Dioxide Level 22, Anion Gap 7, Blood Urea Nitrogen 6L, Creatinine 0.8, Estimat Glomerular Filtration Rate > 60, Glucose Level 90, Calcium Level 8.6 Current Medications Medications (Trade) Dose Ordered Sig/Chad Route PRN Reason Start Time Stop Time Status Last Admin Dose Admin Acetaminophen (Tylenol) 650 mg Q4H PRN ORAL Mild Pain (Pain Scale 1-3) 04/18/20 15:15 05/18/20 15:14 Acetaminophen (Tylenol) 650 mg Q4H PRN ORAL Temp >100.5 04/18/20 15:15 05/18/20 15:14 Al Hydroxide/Mg Hydroxide (Mylanta II) 30 ml Q6H PRN ORAL dyspepsia 04/18/20 15:15 05/18/20 15:14 Ascorbic Acid (Vitamin C) 500 mg TWICE A DAY ORAL 04/20/20 18:00 05/20/20 17:59 04/26/20 08:24 Dextrose (Dextrose 50%) 25 ml Q30M PRN IV Hypoglycemia 04/18/20 15:15 07/17/20 15:14 Dextrose (Dextrose 50%) 50 ml Q30M PRN IV Hypoglycemia 04/18/20 15:15 07/17/20 15:14 Dextrose/ Electrolytes 1,000 ml @ 75 mls/hr [id number] IV 04/19/20 11:00 05/19/20 10:59 04/26/20 06:38 Docusate Sodium (Colace) 100 mg TWICE A DAY ORAL 04/21/20 10:30 05/21/20 10:29 04/26/20 08:23 Folic Acid (Folate) 1 mg DAILY ORAL 04/19/20 09:00 05/19/20 08:59 04/26/20 08:25 Metoprolol Tartrate (Lopressor) 5 mg Q5M PRN IVP afib with RVR HR > 120 up 04/18/20 15:15 07/17/20 15:14 Metoprolol Tartrate (Lopressor) 50 mg Q12HR ORAL 04/18/20 21:00 07/17/20 20:59 04/26/20 08:25 Multivitamins (Multivitamins) 1 tab DAILY ORAL 04/21/20 09:00 05/21/20 08:59 04/26/20 08:24 Nitroglycerin (Ntg) 0.4 mg Q5M PRN SL Prn Chest Pain 04/18/20 15:15 05/18/20 15:14 Sennosides (Senokot) 8.6 mg DAILY PRN ORAL Constipation 04/21/20 10:30 05/21/20 10:29 Zinc Sulfate (Zinc Sulfate) 220 mg DAILY ORAL 04/21/20 09:00 05/01/20 08:59 04/26/20 08:24 Assessment/Plan Assessment/Plan 1. AFib with RVR. 2. Mild dyspnea. 3. Hypertension. DISCUSSION: The patient is doing well from respiratory standpoint. Patient is discharged to SNF as per PCP orders. Above plan was discussed with supervising physician Joselito Núñez NP Apr 26, 2020 13:39
--- NOTE | 2020-04-26 13:49 | Surgery Progress Note ---
Surgery Progress Note Subjective Additional Comments labs reviewed exam stable dni Objective Last 24 Hour Vital Signs Date Time Temp Pulse Resp B/P (MAP) Pulse Ox O2 Delivery O2 Flow Rate FiO2 04/26/20 12:00 83 04/26/20 12:00 97.9 83 19 116/78 (91) 100 04/26/20 12:00 79 04/26/20 09:00 Room Air 04/26/20 08:25 87 137/91 04/26/20 08:00 96 04/26/20 08:00 98.3 87 20 137/91 (106) 97 04/26/20 04:00 98.1 86 19 121/71 (88) 96 04/26/20 04:00 83 04/26/20 00:00 97.5 84 20 141/82 (101) 96 04/26/20 00:00 92 04/25/20 22:01 87 138/99 04/25/20 21:00 Room Air 04/25/20 20:00 82 04/25/20 20:00 98.3 87 22 138/99 (112) 98 04/25/20 16:00 97.7 85 20 136/62 (86) 95 04/25/20 16:00 77 I&O Intake and Output 04/25/20 04/26/20 19:00 07:00 # Voids 2 3 Dressing: saturated Cardiovascular: RSR Respiratory: decreased breath sounds Abdomen: soft, non-tender, present bowel sounds Extremities: no tenderness, no cyanosis Laboratory Tests Test 04/26/20 05:40 White Blood Count 7.4 K/UL (4.8-10.8) Red Blood Count 3.35 M/UL (4.20-5.40) L Hemoglobin 11.7 G/DL (12.0-16.0) L Hematocrit 34.6 % (37.0-47.0) L Mean Corpuscular Volume 103 FL (80-99) H Mean Corpuscular Hemoglobin 35.0 PG (27.0-31.0) H Mean Corpuscular Hemoglobin Concent 33.9 G/DL (32.0-36.0) Red Cell Distribution Width 18.9 % (11.6-14.8) H Platelet Count 319 K/UL (150-450) Mean Platelet Volume 6.4 FL (6.5-10.1) L Neutrophils (%) (Auto) 67.9 % (45.0-75.0) Lymphocytes (%) (Auto) 22.8 % (20.0-45.0) Monocytes (%) (Auto) 7.5 % (1.0-10.0) Eosinophils (%) (Auto) 0.7 % (0.0-3.0) Basophils (%) (Auto) 1.2 % (0.0-2.0) Sodium Level 138 MMOL/L (136-145) Potassium Level 4.6 MMOL/L (3.5-5.1) Chloride Level 109 MMOL/L (98-107) H Carbon Dioxide Level 22 MMOL/L (21-32) Anion Gap 7 mmol/L (5-15) Blood Urea Nitrogen 6 mg/dL (7-18) L Creatinine 0.8 MG/DL (0.55-1.30) Estimat Glomerular Filtration Rate > 60 mL/min (>60) Glucose Level 90 MG/DL (74-106) Calcium Level 8.6 MG/DL (8.5-10.1) Plan Problems: (1) Decubitus skin ulcer Assessment & Plan: [address] [place] [address] facility presented on admission with multiple skin concerns. RIGHT BUTTOCK- STAGE IV PRESSURE ULCER MEASURES 3.0X2.0X0.8CM. WOUND BED WITH 4 0% YELLOW SLOUGH. NO ODOR. ISABELLA-WOUND SKIN WITH NOTED SCARRING. INTACT AT THIS TIME. RECOMMEND-CLEAN WITH SALINE, PAT DRY, APPLY THERAHONEY AND COVER WITH OPTIFOAM DRESSING. REPLACE DAILY. LEFT BUTTOCK-STAGE II PRESSURE ULCER MEASURES 1.0X1.5X0.2CM. WOUND BED PINK. ISABELLA-WOUND SKIN WITH NOTED SCARRING WELL. INTACT AT THIS TIME. RECOMMEND-CLEAN WITH SALINE, PAT DRY, APPLY TRIAD AND COVER WITH OPTIFOAM DRESSING. REPLACE EVERY OTHER DAY.. LEFT LATERAL HEEL- DARK BROWN ESCHAR MEASURES 2.0X1.0CM WITH DTI SURROUNDING IT. DTI MEASURES 2.5X2.0CM AREA DARK PURPLE IN COLOR AND BOGGY TO TOUCH. RECOMMEND- APPLY CAVILON SKIN PROTECTOR AND COVER WITH OPTIFOAM DRESSING. REPLACE EVERY 3 DAYS. RIGHT HEEL- DTI MEASURES 3.0X1.5CM AREA DARK PURPLE IN COLOR. RECOMMEND- APPLY CAVILON SKIN PROTECTOR AND COVER WITH OPTIFOAM DRESSING. REPLACE EVERY 3 DAYS. Turn Q2H OFF LOAD PRESSURE WITH PILLOWS AIR LOSS MATTRESS NUTRITIONAL OPTIMIZATION (2) Malnutrition Assessment & Plan: nutrition required for wound healing bmi 20 low alb diet as tolerated bowel regimen labs noted will follow with recs DAILY ESTIMATED NEEDS: Needs based on Wound, underweight/ 46.5kg 30-35 kcals/kg 8520-2525 total kcals 1.25-1.5 g protein/kg 58-70 g total protein 25-30 mL/kg 8724-9640 total fluid mLs NUTRITION DIAGNOSIS: * Increased kcal/prot needs R/T wound healing, underweight status as evidenced by admitted w/ multiple wounds, including stage 4 R buttock wound, stage 2 L buttock wound, DTI @ L lateral heel and R heel, pt @ 8% IBW w/ low BMI per guidelines, w/ poor and variable intake noted. * Swallowing difficulty R/T dysphagia as evidenced by pt on pureed texture ARGON TESTER. CURRENT DIET:CARDIAC PO DIET RECOMMENDATIONS: Liberalized regular/ texture per MANGANESE WHEELER ADDITIONAL RECOMMENDATIONS: * Calibrated bedscale wt * Ensure Enlive TID w/ meals * MANGANESE WHEELER eval for appropriate texture and liquid consistency -> pt on pureed texture ARGON TESTER, downgraded to pureed for now * Wound healing: MVI w/ min x1, Vit C 500mg BID, ZnSO4 220mg QD x 10days Saurav BID added to tray (3) UTI (urinary tract infection) (4) Atrial fibrillation with RVR (5) Low back pain (6) ACS (acute coronary syndrome) (7) Toxic metabolic encephalopathy (8) Abdominal distension Assessment & Plan: Nonobstructed bowel gas pattern. MODERATE FECAL RETENTION WITH LARGE STOOL IN THE RECTUM, CORRELATE FOR FECAL IMPACTION. No free intraperitoneal air. The lung bases are clear. Cardiomegaly. Calcification projecting over the right kidney measuring 2.2 x 0.8 cm may represent a stone. enema bowel regimen Refugio Maria Apr 26, 2020 13:49
== END 2020-04-26 13:40 | DRG 308 ==
LOC: EDBD 11:50 → EDBEDREQSVC 12:08 → EMR 12:39 → 2E 12:47 → EDBEDREQ 16:38
DX: I48.91 Unspecified atrial fibrillation (principal); L89.314 Pressure ulcer of right buttock, stage 4; G92 Toxic encephalopathy; N39.0 Urinary tract infection, site not specified; E46 Unspecified protein-calorie malnutrition; Z16.12 Extended spectrum beta lactamase (ESBL) resistance; I24.8 Other forms of acute ischemic heart disease; Z68.1 Body mass index [BMI] 19.9 or less, adult; I72.0 Aneurysm of carotid artery; I10 Essential (primary) hypertension; L89.322 Pressure ulcer of left buttock, stage 2; Z88.0 Allergy status to penicillin; E87.6 Hypokalemia; H40.9 Unspecified glaucoma; B96.20 Unspecified Escherichia coli [E. coli] as the cause of diseases classified elsewhere; R62.7 Adult failure to thrive; I27.20 Pulmonary hypertension, unspecified; K59.00 Constipation, unspecified; E83.39 Other disorders of phosphorus metabolism; Z79.82 Long term (current) use of aspirin; L89.626 Pressure-induced deep tissue damage of left heel; L89.616 Pressure-induced deep tissue damage of right heel; Z79.01 Long term (current) use of anticoagulants; F03.90 Unspecified dementia, unspecified severity, without behavioral disturbance, psychotic disturbance, mood disturbance, and anxiety; R06.00 Dyspnea, unspecified; R14.0 Abdominal distension (gaseous); D64.9 Anemia, unspecified
CPT/HCPCS: 36415; 71045; 74018; 80048; 80053; 81003; 82550; 82607; 82746; 83036; 83735; 83880; 84100; 84443; 84484; 85007; 85025; 85610; 85730; 87081; 87086; 87181; 93005; 93306; 94664; 96374; 99291; C9399; J8499